=== PATIENT | male | born 1955 | race Caucasian/White ===

== ENCOUNTER 2019-12-13 10:11 | Inpatient (IN) | payer MEDICARE, OTHER ==
[~2019-12-13] VITALS: Ht 188 cm; Wt 114.8 kg
--- OUTSIDE RECORDS SUMMARY | 2019-12-13 10:14 | XMS REPORT ---
Author Author [facility] Organization 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 Allergies, Adverse Reactions, Alerts Allergy Name Allergy Type Status Severity Reaction(s) Onset Date Inacti ve Date Treating Clinician Comments No Known Allergies DA Active U 2013-06-17 00:00:00 Medications This patient has no known medications. Results Test Description Test Time Test Comments Text Results Atomic Results Result Comments GLYCOSYLATED HEMOGLOBIN (HA1C) 2018-12-21 21:09:00 GLYCOSYLATED HEMOGLOBIN (HA1C) (test code = GLYHGB) 11.0 % 4.8-5.9 Any condition that shortens erythocyte survival or decreasesmean erythrocyte age (e.g., recovery from acute blood loss,hemolytic anemai) will falsely lower HGBA1c resultsregardless of the method used. HGBA1c results frompatients with HbSS, HbCC and HbSc must be interpreted withcaution given the pathological processes, including anemia,increased red cell turnover, transfusion requirements, thatadversely impact HGBA1c as a marker of long-term glycemiccontrol. Alternative forms of testing such as fructosamineshould be considered for these patients.Any condition that shortens erythocyte survival or decreasesmean erythrocyte age (e.g., recovery from acute blood loss,hemolytic anemia) will falsely lower HGBA1c resultsregardless of the method used. HGBA1c results from patientswith HbSS, HbCC, and HbSc must be interpreted with cautiongiven the pathological processes, including anemia,increased red cell turnover, transfusion requirements, thatadversely impact HGBA1c as a marker of long-term glycemiccontrol. Alternative forms of testing such as fructosamineshould be considered for these patients.DONE AT: [facility] [address] [facility], [place] [address] GLYCOSYLATED HEMOGLOBIN (HA1C)2018-12-21 21:08:00* Test Item Value Reference Range Comments GLYCOSYLATED HEMOGLOBIN (HA1C) (test code = GLYHGB) 11.0 % 4.8-5.9 Any condition that shortens erythocyte survival or decreasesmean erythrocyte age (e.g., recovery from acute blood loss,hemolytic anemia) will falsely lower HGBA1c resultsregardless of the method used. HGBA1c results from patientswith HbSS, HbCC, and HbSc must be interpreted with cautiongiven the pathological processes, including anemia,increased red cell turnover, transfusion requirements, thatadve rsely impact HGBA1c as a marker of long-term glycemiccontrol. Alternative forms of testing such as fructosamineshould be considered for these patients. COMPREHENSIVE METABOLIC [id number] 18:53:00* Test Item Value Reference Range Comments SODIUM (test code = NA) 132 mmol/L 136-145 POTASSIUM (test code = K) 5.0 mmol/L 3.5-5.1 CHLORIDE (test code = CL) 98.0 mmol/L 98-107 CARBON DIOXIDE (test code = CO2) 26.1 mmol/L 21-32 GLUCOSE (test code = GLU) 431 mg/dL 70-110 VERIFI ED BY REPEAT ANALYSIS.CRITICAL VALUE CALLED TO ZULEIKA READ BACK & CONFIRMED? KAYLEN ALCANTARA.BONNIE 12/21/18 1851RESULTS FAXED TO THE DOCTOR'S OFFICE. BLOOD UREA NITROGEN (test code = BUN) 39 mg/dL 7-18 GLOMERULAR FILTRATION RATE (test code = GFR) 25.1 >60 Unit of measure: mL/min/1.73 [id number] Range:Healthy Adults >90 mL/min/1.73 m2 For Chronic Kidney Disease: Stage II Mild Decrease in GFR 60-90 Stage III Moderate Decrease in GFR 30-59 Stage IV Severe Decrease in GFR 15-29 Stage V Kidney Failure <15 CREATININE (test code = CREAT) 2.58 mg/dL 0.55-1.30 TOTAL PROTEIN (test code = PROT) 7.6 g/dL 6.4-8.2 ALBUMIN (test code = ALB) 3.8 g/dL 3.4-5.0 GLOBULIN (test code = GLOB) 3.8 g/dL 2.2-4.2 ALBUMIN/GLOBULIN RATIO (test code = A/G) 1.0 0.7-2.0 CALCIUM (test code = CA) 8.6 mg/dL 8.2-10.1 BILIRUBIN TOTAL (test code = BILT) 0.31 mg/dL 0.2-1.00 SGOT/AST (test code = AST) 35.0 U/L 15-37 SGPT/ALT (test code = ALT) 53.0 U/L 12-78 Pleas e note new normal range. ALKALINE PHOSPHATASE TOTAL (test code = ALKP) 110 U/L 46 -116 URINALYSIS [id number] 18:46:00* Test Item Value Reference Range Comments UA COLOR (test code = COLU) YELLOW YELLOW UA APPEARANCE (test code = APPU) SL CLOUDY CLEAR UA GLUCOSE DIPSTICK (test code = DGLUU) 3+ NEGATIVE UA BILIRUBIN DIPSTICK (test code = BILU) NEGATIVE NEGATIV E UA KETONE DIPSTICK (test code = KETU) NEGATIVE mg/dL NEGATIVE UA SPECIFIC GRAVITY (test code = SGU) 1.020 1.003-1.03 5 UA BLOOD DIPSTICK (test code = VINAY) TRACE NEGATIVE UA PH DIPSTICK (test code = MADELINE) 6.0 >6.5 UA PROTEIN DIPSTICK (test code = PROU) 3+ mg/dL NEG UA UROBILINIOGEN DIPSTICK (test code = URO) 0.2 mg/dL NORM UA NITRITE DIPSTICK (test code = DINA) NEGATIVE NEG UA LEUKOCYTE ESTERASE DIPSTICK (test code = LEUU) NEGATIVE NEGATIVE UA WBC (test code = WBCU) 20-30 /HPF 0-2 UA RBC (test code = RBCU) 2-5 /HPF 0-2 UA EPITHELIAL CELLS (test code = EPIU) MOD /HPF 0-2 UA BACTERIA (test code = BACU) 2+ /HPF NONE P reviously reported result: 3+ /HPFEdited by: ARIANACD on 12/21/18:[id number] 1846: BACT previously reported as: 3+ H /HPF URINALYSIS [id number] 18:45:00* Test Item Value Reference Range Comments UA COLOR (test code = COLU) YELLOW YELLOW UA APPEARANCE (test code = APPU) SL CLOUDY CLEAR UA GLUCOSE DIPSTICK (test code = DGLUU) 3+ NEGATIVE UA BILIRUBIN DIPSTICK (test code = BILU) NEGATIVE NEGATIV E UA KETONE DIPSTICK (test code = KETU) NEGATIVE mg/dL NEGATIVE UA SPECIFIC GRAVITY (test code = SGU) 1.020 1.003-1.03 5 UA BLOOD DIPSTICK (test code = VINAY) TRACE NEGATIVE UA PH DIPSTICK (test code = MAEDLINE) 6.0 >6.5 UA PROTEIN DIPSTICK (test code = PROU) 3+ mg/dL NEG UA UROBILINIOGEN DIPSTICK (test code = URO) 0.2 mg/dL NORM UA NITRITE DIPSTICK (test code = DINA) NEGATIVE NEG UA LEUKOCYTE ESTERASE DIPSTICK (test code = LEUU) NEGATIVE NEGATIVE UA WBC (test code = WBCU) 20-30 /HPF 0-2 UA RBC (test code = RBCU) 2-5 /HPF 0-2 UA EPITHELIAL CELLS (test code = EPIU) MOD /HPF 0-2 UA BACTERIA (test code = BACU) 3+ /HPF NONE PROTHROMBIN [id number] 18:39:00* Test Item Value Reference Range Comments PROTHROMBIN TIME PATIENT (test code = PTP) 13.1 secs 10.1- 12.5 INTERNATIONAL NORMAL RATIO (test code = INR) 1.16 <2. 0 RECOMMENDED THERAPEUTIC RANGE FOR ORAL ANTICOAGULANTTREATMENT: CONDITION INRProphylaxis of venous thrombosis in 2.0 - 3.0 high-risk medical or surgical patientsTreatment of venous thrombosis 2.0 - 3.0Prevention of embolism 2.0 - 3.0Prevention of recurrent embolism, or 3.0 - 4.5 patients with mechanical prosthetic intravascular valves IS PATIENT ON ANTICOAGULANTS ? NHas Lab been notified if Patient is on Heparin D rip? NOTHROMBOPLASTIN TIME [id number] 18:39:00* Test Item Value Reference Range Comments PTT ACTIVATED (test code = APTT) 29.5 secs 24.9-37.0 IS PATIENT ON ANTICOAGULANTS ? NDas Lab been notified if Patient is on Heparin D rip? NOCBC W/AUTO [id number] 17:50:00* Test Item Value Reference Range Comments WHITE BLOOD CELL (test code = WBC) 10.8 K/mm3 5.7-10.5 RED BLOOD CELL (test code = RBC) 4.29 M/mm3 4.2-5.4 HEMOGLOBIN (test code = HGB) 12.8 g/dL 12-16 HEMATOCRIT (test code = HCT) 38.0 % 37-47 MEAN CELL VOLUME (test code = MCV) 89 fL 80-98 MEAN CELL HGB (test code = MCH) 29.8 pg 27-34 MEAN CELL HGB CONCENTRATION (test code = MCHC) 33.7 g/dL 3 0.8-34.1 RED CELL DISTRIBUTION WIDTH (test code = RDW) 14.2 % 11 -16 PLT (test code = PLT) 246 K/mm3 130-400 MEAN PLATELET VOLUME (test code = MPV) 11.3 fL 8.9-12.1 NEUTROPHIL % (test code = NT%) 73.9 % 45-70 LYMPHOCYTE % (test code = LY%) 13.1 % 20-40 MONOCYTE % (test code = MO%) 8.8 % 3-10 EOSINOPHIL % (test code = EO%) 2.6 % 1-5 BASOPHIL % (test code = BA%) 0.6 % 0.0-1.1 NEUTROPHIL # (test code = NT#) 7.99 K/mm3 2.00-7.50 LYMPHOCYTE # (test code = LY#) 1.42 K/mm3 1.50-4.00 MONOCYTE # (test code = MO#) 0.95 K/mm3 0.2-0.8 EOSINOPHIL # (test code = EO#) 0.28 K/mm3 0.04-0.4 BASOPHIL # (test code = BA#) 0.07 K/mm3 0.02-0.10 MANUAL DIFF REQUIRED (test code = MDIFF) NO MANUAL DIFF NUCLEATED RED BLOOD CELL (test code = NRBC) 0 % 0-0
--- OUTSIDE RECORDS SUMMARY | 2019-12-13 10:14 | XMS REPORT | Summary of Care ---
Author Author [facility] - Health Organization [facility] - Health Address Unknown Phone Unavailable Care Team Providers Care Capsule Inspector Name Role Phone Pcp, Patient Does Not Have A PCP [phone] Reason for Visit * Reason Comments Wound Care Encounter Details Care Team Description Date Type Department Gina Mark DPM [address] [place], [place] [id number] Diabetic ulcer of other part of right fo ot associated with diabetes mellitus due to underlying condition, limited to breakdown of skin (Primary Dx); Charcot's arthropathy associated with type 2 diabetes mellitus; Comprehensive diabetic foot examination, type 2 DM, encounter for; Diabetes mellitus type 2, insulin dependent 08/23/2019 Office Visit [facility], [address], [place] [address] Allergies No Known Allergiesdocumented as of this encounter (statuses as of 08/24/2019) Medications End Date Status Medication Sig Dispensed Refills Start Date Active pregabalin (LYRICA) 150 Take 150 mg 0 mg capsule by mouth 2 (two) times daily. Active Fenofibrate 160 mg tablet Take by 0 mouth daily. Active lisinopril 40 mg tablet Take 40 mg by 0 mouth daily. Active metoprolol succinate XL Take 100 mg 0 100 mg 24 hr tablet by mouth daily. Active allopurinol 300 mg tablet Take 300 mg 0 by mouth daily. Active amLODIPine 10 mg tablet Take 10 mg by 0 mouth daily. Active atorvastatin 40 mg tablet Take 40 mg by 0 mouth at bedtime. Active DULoxetine 30 mg capsule Take 30 mg by 0 mouth daily. Active aspirin (ASPIR-81 ORAL) Take by 0 mouth. Active multivitamin (MULTI-DAY Take by 0 ORAL) mouth. Active acetaminophen (TYLENOL Take by 0 EXTRA STRENGTH ORAL) mouth. Active insulin lispro (HUMALOG inject 20 15 Syringe 1 KWIKPEN INSULIN) 200 Units under 9 unit/mL (3 mL) the skin 3 InPnIndications: Type 2 (three) times diabetes mellitus with daily with hyperglycemia, with meals. long-term current use of insulin Active insulin glargine U-300 inject 65 15 Syringe 1 conc (TOUJEO MAX U-300 Units under 9 SOLOSTAR) 300 unit/mL (3 the skin at mL) InPnIndications: Type bedtime. 2 diabetes mellitus with hyperglycemia, with long-term current use of insulin 09/02/2019 Active clindamycin 300 mg Take 1 30 capsule 0 02 capsuleIndications: capsule by 0 Diabetic ulcer of other mouth 3 part of right foot (three) times associated with diabetes daily for 10 mellitus due to days. underlying condition, limited to breakdown of skin, Charcot's arthropathy associated with type 2 diabetes mellitus, Comprehensive diabetic foot examination, type 2 DM, encounter for, Diabetes mellitus type 2, insulin dependent 08/23/2019 Discontinued (Reorder) clindamycin 300 mg Take 1 42 capsule 0 02 capsuleIndications: capsule by 0 Diabetic ulcer of other mouth 3 part of right foot (three) times associated with diabetes daily for 14 mellitus due to days. underlying condition, limited to breakdown of skin, Charcot's arthropathy associated with type 2 diabetes mellitus, Comprehensive diabetic foot examination, type 2 DM, encounter for, Diabetes mellitus type 2, insulin dependent documented as of this encounter (statuses as of 08/24/2019) Active Problems Problem Noted Date Obesity (BMI 30-39.9) 03/27/2018 Lesion of lower eyelid 02/17/2018 Overview: Added automatically from request for tj boles [id number] Arthritis of knee, degenerative 09/21/2013 HTN (hypertension) 03/23/2012 Diabetes mellitus 03/23/2012 documented as of this encounter (statuses as of 08/24/2019) Social History Date Tobacco Use Types Packs/Day Years Used Never Smoker Smokeless Tobacco: Never Used Drinks/Week oz/Week Comments Alcohol Use Not Asked Sex Assigned at Date Recorded Not on file Industry Job Start Date Occupation Not on file Not on file Not on file Travel End Travel History Travel Start No recent travel history available. documented as of this encounter Last Filed Vital Signs Reading Time Taken Comments Vital Sign 136/77 08/23/2019 11:31 AM CONSULTING PSYCHOLOGIST Blood Pressure 86 08/23/2019 11:16 AM CONSULTING PSYCHOLOGIST Pulse 36.7 C (98 F) 08/23/2019 11:16 AM CONSULTING PSYCHOLOGIST Temperature 21 08/23/2019 11:16 AM CONSULTING PSYCHOLOGIST Respiratory Rate 96% 08/23/2019 11:16 AM CONSULTING PSYCHOLOGIST Oxygen Saturation - - Inhaled Oxygen Concentration 132.2 kg (291 lb 6.4 oz) 08/23/2019 11:16 AM CONSULTING PSYCHOLOGIST Weight 188 cm (6' 2") 08/23/2019 11:16 AM CONSULTING PSYCHOLOGIST Height 37.41 08/23/2019 11:16 AM CONSULTING PSYCHOLOGIST Body Mass Index documented in this encounter Progress Notes * Maria E Mustafa LVN - 08/23/2019 11:00 AM CONSULTING PSYCHOLOGIST Laurie Marroquin is a 63 year old male presents to the clinic per ambulation wit h a cane for wound care evaluation of right foot with . Patient report s 0/10 pain level, fall risk assessed, allergies reviewed, and pharmacy reviewed . Wound#1 Wound etiology: diabetic or neurotrophic Anatomic location: Foot right Age of wound: chronic > 1 month Photos Taken Yes Vitals Taken Yes Reviewed allergies Yes Reviewed medications Yes Wound Description: Location: right plantar Size: 3.5 cm length, 3.6 cm width, 0.1 cm depth Total Area: 12.6 cm/sq Shape: oval Type of wound: partial thickness wound Exudate: amount moderate, color serosanguinous, consistency watery Pitting Edema : no Sepsis: none Surrounding skin: erythematous and intact Maceration: not present Edges: not attached Epithelialization: not present Tissue Bed: granulation tissue present 100% Necrotic Tissue: not present Tenderness or pain: no pain Dressing upon arrival:lcal dressing Dressing removed and Wound washed with 0.25% Dakins Solution Devitalized Tissue Removed yes by . Wound #2 Wound etiology: diabetic or neurotrophic Anatomic location: Foot right Age of wound: chronic > 1 month Photos Taken Yes Vitals Taken Yes Reviewed allergies Yes Reviewed medications Yes Wound Description: Location: right lateral foot Size: 2.1 cm length, 2 cm width, 1.6 cm depth Total Area: 4.2 cm/sq Shape: oval Type of wound: partial thickness wound Exudate: amount moderate, color serosanguinous, consistency watery Pitting Edema : no Sepsis: odor detected Surrounding skin: erythematous and intact Maceration: present, location: lana-wound Edges: not attached Epithelialization: not present Tissue Bed: granulation tissue not present Necrotic Tissue: present. Type: slough yellow . Percentage of wound: 50% Tenderness or pain: no pain Dressing upon arrival:local dressing Dressing removed and Wound washed with 0.25% Dakins Solution Devitalized Tissue Removed No 0.25% Dakins wet to dry applied to wound bed covered with dry gauze, wrapped wit h Kerlix, and secured with 4" heron. Patient tolerated wound care well, he denies any further question or concerns at this time. [facility] Orders written and signed by . Patient will follow up as noted bellow: Future Appointments Date Time Provider Department Center 08/25/2019 11:00 AM Anh Molina [facility] [place] 09/06/2019 1:40 PM Gina Mark DPM [facility] 09/08/2019 2:[address] [facility]24/2019 2:00 PM [facility]ehuda Peres [facility] ULTING PSYCHOLOGIST * Gina Mark DPM - 08/23/2019 11:00 AM CONSULTING PSYCHOLOGIST Chief Complaint: Diabetic foot ulcer Referring Provider: José Miguel Arreola History of Present Illness: Laurie Marroquin, is a 63 year old, male, who presents to clinic with a partial 5th ray amputation of his right foot about 2 years ago. Pt notes that he also h as the same amputation on his left foot. He has a home health nurse who adminis ters wound care. Pt relates no other pedal issues this visit. Pt seen today for follow-up of with a right foot ulceration. The patient says that a bump on his foot "blew" on Friday. He says he is unable to dress his wounds himself and is requesting home health. He denies any pain and relates no other pedal concerns. Interval History 08/23/19: Pt seen today for follow-up of two right foot ulcera tions. He states that he has acquired home health and needs his orders updated. Patient relates no other pedal ulcerations. Past Medical History: Past Medical History: Diagnosis Date Cataract Chronic kidney disease DM II (diabetes mellitus, type II), controlled Hyperlipidemia Hypertension Social History: Social History Socioeconomic History Marital status: Single Spouse name: Not on file Number of children: Not on file Years of education: Not on file Highest education level: Not on file Occupational History Not on file Social Needs Financial resource strain: Not on file Food insecurity: Worry: Not on file Inability: Not on file Transportation needs: Medical: Not on file Non-medical: Not on file Tobacco Use Smoking status: Never Smoker Smokeless tobacco: Never Used Substance and Sexual Activity Alcohol use: Not on file Drug use: Not on file Sexual activity: Not on file Lifestyle Physical activity: Days per week: Not on file Minutes per session: Not on file Stress: Not on file Relationships Social connections: Talks on phone: Not on file Gets together: Not on file Attends denominational service: Not on file Active member of club or organization: Not on file Attends meetings of clubs or organizations: Not on file Relationship status: Not on file Intimate partner violence: Fear of current or ex partner: Not on file Emotionally abused: Not on file Physically abused: Not on file Forced sexual activity: Not on file Other Topics Concern Not on file Social History Narrative Not on file Family History: Family History Problem Relation Age of Onset Diabetes Mother Diabetes Father Current Medications: Patient's Medications START taking these medications No medications on file CONTINUE taking these medications which have NOT CHANGED COLLAGENASE (SANTYL) 250 UNIT/GRAM OINTMENT Apply to affected area(s) daily . INSULIN ASPART RAPID (NOVOLOG) 100 UNIT/ML INJECTION inject 33 Units under t he skin 3 (three) times daily before meals. INSULIN DETEMIR (LEVEMIR) 100 UNIT/ML INJECTION inject 50 Units under the sk in 2 (two) times daily. INSULIN LISPRO, HUMAN, (HUMALOG) 100 UNIT/ML INJECTION Administer 33 units t hree times a day before meals. METFORMIN (GLUCOPHAGE) 500 MG TABLET Take 1 Tab by mouth 2 (two) times daily with meals. SODIUM HYPOCHLORITE 0.25% (DAKIN'S SOLUTION) SOLUTION Apply to area(s) tonya y. TRIAMCINOLONE ACETONIDE 0.1 % OINTMENT Apply to area(s) 2 (two) times daily . START taking Modified Medications as Prescribed No medications on file STOP taking these medications No medications on file Allergies: Patient has no known allergies. Review of Systems: Constitutional: no fever, no chills Cardiovascular: no chest pain Respiratory: no cough, no shortness of breath Gastrointestinal: no nausea, no vomiting, no diarrhea Integumentary: no itching, no rashes, open skin lesion right LE Hematologic/lymphatic: no bruising or bleeding tendencies Physical Exam: BP 136/77 (BP Location: Right arm, Patient Position: Sitting, BP CUFF SIZE: Adul t Large) | Pulse 86 | Temp 36.7 C (98 F) (Oral) | Resp 21 | Ht 6' 2" (1. 88 m) | Wt 291 lb 6.4 oz (132.2 kg) | SpO2 96% | BMI 37.41 kg/m Body mass index is 37.41 kg/m. General: alert, awake, oriented x 3, appearing age appropriate, no apparent dist ress. Skin: skin color, texture, and turgor are normal. Specific Physical Exam/Lower Extremity Pedal Exam: DERM: Pedal hair growth present: no Soft tissue envelope: normal Nails are thickened, elongated, discolored, with subungual debris:yes - 1-5 of l eft foot, 1-4 of right foot WOUND #1: Location: Right partial 5th ray amputation site Measurements: 08/23/19: Pre-debridement: 2.1cm L x 2.1cm W x 0.1cm D- pink granulat ion tissue with well demarcated wound margins Post-debridement: 2.1cm L x 2.1cm W x 0.1cm D- bleeding, granular 08/16/19: Pre-debridement: 1.8cm L x 2.0cm W x 0.1cm D- undermines superiorly a nd laterally, hyperkeratotic periwound tissue with biofilm covering granular wou nd bed Post-debridement: 1.8cm L x 2.0cm W x 0.1cm D-macerated periwound tissu e in areas of previous undermining 08/02/19: Pre-debridement: 1.5cm L x 1.5cm W x 0.1cm D- well demarcated, granul ar Post-debridement: 1.5cm L x 1.5cm W x 0.1cm D- bleeding, granular 07/22/19: Pre-debridement:1.5cm L x 1.0cm W x 0.2cm D - pink granular wound bed, macerated periwound tissue Post-debridement: 1.6cm L x 1.5cm W x 0.1cm D - bleeding but pink wound bed, we ll demarcated wound border WOUND #2: Location: Dorsal Lateral Styloid Process Measurements: 08/23/19: Pre-debridement: 1.5cm L x 1.5cm W x 1.0cm D- 95% fibrotic Post-debridement: 1.5cm L x 1.5cm W x 1.0cm D-joint capsule exposed, bleed ing 08/16/19: Pre-debridement: 2.3cm L x 2.0cm W x 1.6cm D-100% fibrotic tissue and deep probe to bone. Slough and devitalized tissue noted Post-debridemeent: 2.3cm L x 2.0cm W x 1.6cm D- bleeding, fibrotic VASC: Dorsalis pedis and posterior tibial pulses are 2/4, Capillary refill: <3 seconds at all tested digits Temperature: normal Edema: absent Varicosities: not noted NEURO: Epicritic sensation: diminished MSK: Motor function grossly intact Pedal Deformities: not noted Pedal Amputations: partial 5th ray amputation, bilaterally EXAM: XR FOOT 3+ VW BILATERAL HISTORY: chronic right foot diabetic ulcer COMPARISON: 09/08/2017 FINDINGS: Imaging of the bilateral feet was obtained. Right foot: Prior amputation of the fifth ray at the level of the metatarsal base is seen. There is increased sclerosis about the bony amputation site. Focal soft tissue prominence overlies the lateral aspect of the foot at the level of the fifth metatarsal base. Disorganization, cystic change and fragmentation of the midfoot is seen. There is midfoot collapse. Calcaneal enthesophytes are present. Osteopenia, mild soft tissue swelling and vascular calcifications are present. Dorsal talonavicular osteophytosis is seen. Chronic erosion of the fourth metatarsal head is unchanged. Left foot: Partial amputations of the fourth and fifth metatarsals are seen with intact bony amputation margins. Diffuse soft tissue swelling is seen with osteopenia and diabetic type vascular calcifications. No acute fracture or dislocation is identified. There is diffuse narrowing of the tarsometatarsal joints with osteophytosis and fragmentation. Midfoot collapse is suggested. Calcaneal enthesophytes are seen. IMPRESSION No acute bony abnormality. Findings compatible with bilateral Charcot arthropathy, right greater than left. Focal soft tissue prominence in the right lateral foot could represent a soft tissue mass or fluid collection. Further evaluation with MRI with and without IV contrast may be helpful. Diagnosis: ICD-10-CM ICD-9-CM 1. Diabetic ulcer of other part of right foot associated with diabetes mellitus due to underlying condition, limited to breakdown of skin E08.621 249.80 L97.511 707.15 2. Charcot's arthropathy associated with type 2 diabetes mellitus E11.610 250.60 713.5 3. Comprehensive diabetic foot examination, type 2 DM, encounter for E11.9 250.0 0 4. Diabetes mellitus type 2, insulin dependent E11.9 250.00 Z79.4 V58.67 Plan: Patient evaluated and examined Condition and treatment plan discussed in detail with patient PROCEDURE NOTE Type of Debridement: Excisional Level of Debridement: Wound debrided down to and including subcutaneous tissue l evel, muscle Tissue type removed: Biofilm, slough, devitalized tissue Instrument: Scapel/Blade:Yes Curette:Yes Forceps: No Scissors: No Both wounds dressed with Dakin's Wet to Dry Home health orders updated Continue Rx: Clindamycin 300 mg TID x 10 days Monitor skin closely for any signs of skin breakdown Pt to report to ED for any local or systemic signs of infection, discussed in detail with him today RTC in 2 weeks Siennaibe's Attestation Rodríguez Rivera , am scribing for, and in the presence of, Gina nielsen DPM who performed the services described here-in. Rodríguez Rodriguez, August 23, 2019, 11:30 AM Physician's Attestation Gina Rivera DPM, personally performed and/or ordered the services describ ed in this documentation made by the Scribe in my presence, and it is both accur ate and complete. All medical record entries made by the Siennaibrocio were at my dire ction and personally dictated by me. I have reviewed the chart and agree that t he record accurately reflects my personal performance of the history, physical e xam, assessment and plan. Gina Mark DPM Aeronautical Research Engineer Podiatric Medicine and Surgery Department of Orthopaedic Surgery & Rehabilitation 08/23/19 3:56 PM ULTING PSYCHOLOGIST * Elizabeth Leigh MA - 08/23/2019 11:00 AM CONSULTING PSYCHOLOGIST Laurie Marroquin is a 63 year old male is here for wound care. Wound measurements Right plantar 3.5 cm length, 3.6 cm width, 0.1 cm depth Wound measurements Right lateral dorsal foot 2.1 cm length, 2.0 cm width, 1.6 cm depth Patient arrived with local dressing Wound cleansed with Dakins solutions Numb at 11:29am ULTING PSYCHOLOGIST documented in this encounter Plan of Treatment Care Team Description Date Type Specialty Anh Molina MD [address] [place] [id number] 08/25/2019 Office Visit Endocrinology Diabe aj & Metabolism Gina Mark DPM [address] [place] [address] 09/06/2019 Office Visit Surgery Darrius, Denise, RD [address] [place], [place] [address] 09/08/2019 Library Page Visit Endocrinology Diabe aj [facility] Metabolism Yehuda Peres MD [address] [place] [address]. [place] [address] 12/24/2019 Office Visit Ophthalmology Health Maintenance Due Date Last Done Comments HEPATITIS C (HCV) SCREEN 1955 CREATININE (SERUM) 12/04/1963 LDL-C 12/04/1963 URINE MICROALBUMIN 12/04/1963 DTaP,Tdap,and Td Vaccines 1964 (1 - Tdap) COLONOSCOPY 12/04/2003 Zoster Recombinant 12/04/2003 Vaccine (SHINGRIX) (1 of 2) HgA1C 02/23/2016 08/25/2015 FOOT EXAM 08/25/2016 08/25/2015 Medicare Wellness Visit 2018 PNEUMOCOCCAL VACCINES 65+ 2018 (1 of 2 - PCV13) INFLUENZA VACCINE (#1) 2019 EYE EXAM 06/25/2020 06/25/2019, 019, 02/10/2018 documented as of this encounter Results Not on filedocumented in this encounter Visit Diagnoses Diagnosis Diabetic ulcer of other part of right f oot associated with diabetes mellitus due to underlying condition, limited to breakdown of skin - Primary Charcot's arthropathy associated with t ype 2 diabetes mellitus Type II or unspecified type diabetes me llitus with neurological manifestations, not stated as uncontrolled Comprehensive diabetic foot examination , type 2 DM, encounter for Diabetes mellitus type 2, insulin depen dent Type II or unspecified type diabetes me llitus without mention of complication, not stated as uncontrolled documented in this encounter Additional Health Concerns Resolved Time Infection Noted Time Contact- MRSA 08/22/2019 6:33 PM CONSULTING PSYCHOLOGIST documented as of this encounter Insurance Type Payer Benefit Subscriber ID Effective Phone Address Plan / Dates Group Medicare MEDICARE MEDICARE xxxxxxxxxxx 2008- [phone] [address] [employer] [place] [employer] Present [id number] [place] [id number] documented as of this encounter
--- OUTSIDE RECORDS SUMMARY | 2019-12-13 10:14 | XMS REPORT | Summary of Care ---
Author Author [facility] - Health Organization [facility] - Health Address Unknown Phone Unavailable Care Team Providers Care Sales Support Assistant Name Role Phone Pcp, Patient Does Not Have A PCP Encounter Details Care Team Description Date Type Department Doctor Unassigned, [place] [address] [place] [address] 09/13/2019 Orders Only [facility] [address] [place] [address] Allergies No Known Allergiesdocumented as of this encounter (statuses as of 09/22/2019) Medications End Date Status Medication Sig Dispensed [...] hyperglycemia, with long-term current use of insulin Active clindamycin 300 mg 2 capsules 0 capsule Active furosemide 40 mg tablet TK 1 T PO 0 BID 0 Active hydrALAZINE 25 mg tablet TK 1 T PO TID 0 07/13 WF 9 Active mupirocin 2 % ointment ADONIS EXT AA 0 01 TID FOR 10 9 DAYS Active BD INSULIN PEN NEEDLE UF TEST QID 0 08/18 29 gauge x 1/2" Ndle 0 Active naproxen sodium (ALEVE Take by 0 ORAL) mouth. Active acetaminophen-codeine Take 1 tablet 30 tablet 0 (TYLENOL-CODEINE #3) by mouth 0 300-30 mg every 4 tabletIndications: Type 2 (four) hours diabetes mellitus with as needed for both eyes affected by Pain (scale mild nonproliferative 1-3). retinopathy without macular edema, with long-term current use of insulin, Charcot's joint of right foot, Essential hypertension, Lesion of lower eyelid, Obesity (BMI 30-39.9) 09/23/2019 Active clindamycin 300 mg Take 1 20 capsule 0 02 capsuleIndications: capsule by 0 Diabetic ulcer of other mouth 2 (two) part of right foot times daily associated with diabetes for 10 days. mellitus due to underlying condition, limited to breakdown of skin, Charcot's joint of right foot, 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inopathy without macular edema, with long-term current use of insulin documented as of this encounter (statuses as of 09/22/2019) Active Problems Problem Noted Date 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, with long-term current use of insulin Overview: Added automatically from request for tj boles [id number] Charcot's joint of right foot 09/07/2019 Overview: Added automatically from request for tj pachecoery [id number] Obesity (BMI 30-39.9) 03/27/2018 Lesion of lower eyelid 02/17/2018 Overview: Added automatically from request for spencer elvi [id number] Arthritis of knee, degenerative 09/21/2013 HTN (hypertension) 03/23/2012 Diabetes mellitus 03/23/2012 documented as of this encounter (statuses as of 09/22/2019) Social History Date Tobacco Use Types Packs/Day Years Used Former Smoker Smokeless Tobacco: Never Used Drinks/Week oz/Week Comments Alcohol Use Not Asked Sex Assigned at Date Recorded Not on file Industry Job Start Date Occupation Not on file Not on file Not on file Travel End Travel History Travel Start No recent travel history available. documented as of this encounter Last Filed Vital Signs Not on filedocumented in this encounter Plan of Treatment Care Team Description Date Type Specialty Gina Mark DPM [address] [place], [place] [address] 09/27/2019 Office Visit Surgery Denise Rizo, RD [address] [place], [place] [address] 12/23/2019 Saw Straightener Visit Endocrinology [facility] [address] [place] [address]. [place] [address] 12/24/2019 Office Visit Ophthalmology Health Maintenance Due Date Last Done Comments HEPATITIS C (HCV) SCREEN 1955 CREATININE (SERUM) 12/04/1963 LDL-C 12/04/1963 URINE MICROALBUMIN 12/04/1963 DTaP,Tdap,and Td Vaccines 1964 (1 - Tdap) COLONOSCOPY 12/04/2003 Zoster Recombinant 12/04/2003 Vaccine (SHINGRIX) (1 of 2) LUNG CANCER SCREEN: 2008 Recommended for age 55-80 with 30 + pack year history HgA1C 02/23/2016 08/25/2015 FOOT EXAM 08/25/2016 08/25/2015 Medicare Wellness Visit 2018 PNEUMOCOCCAL VACCINES 65+ 2018 (1 of 2 - PCV13) INFLUENZA VACCINE (#1) 2019 EYE EXAM 06/25/2020 06/25/2019, 019, 02/10/2018 documented as of this encounter Procedures Comments Procedure Name Priority Date/Time Associated Diag nosis HOME HEALTH - OTHER Routine 09/13/2019 12:01 AM PHOTOGRAPHER documented in this encounter Results Not on filedocumented in this encounter Additional Health Concerns Resolved Time Infection Noted Time Contact- MRSA 08/22/2019 6:33 PM PHOTOGRAPHER documented as of this encounter Insurance Type Payer Benefit Subscriber ID Effective Phone Address Plan / Dates Group Medicare MEDICARE MEDICARE xxxxxxxxxxx 2008- [phone] [address] [employer] B Present [id number] [place] [id number] documented as of this encounter
--- OUTSIDE RECORDS SUMMARY | 2019-12-13 10:15 | XMS REPORT | Summary of Care ---
Author Author [facility] - Health Organization [facility] - Health Address Unknown Phone Unavailable Care Team Providers Care Pain Management Specialist Name Role Phone Pcp, Patient Does Not Have A PCP [phone] Reason for Visit * Reason Comments Diabetic Foot Ulcer Encounter Details Care Team Description Date Type Department Gina Mark, MONISHA [address] [place] [address] Diabetic ulcer of other part of right fo ot associated with diabetes mellitus due to underlying condition, limited to breakdown of skin (Primary Dx); Charcot's joint of right foot; 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inopathy without macular edema, with long-term current use of insulin 09/27/2019 Office Visit [facility], [address], [facility] [place] [address] Allergies No Known Allergiesdocumented as of this encounter (statuses as of 09/27/2019) Medications End Date Status Medication Sig Dispensed [...] Lesion of lower eyelid, Obesity (BMI 30-39.9) documented as of this encounter (statuses as of 09/27/2019) Active Problems Problem Noted Date 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, with long-term current use of insulin Overview: [id number] Charcot's joint of right foot 09/07/2019 Overview: [facility] [id number] Obesity (BMI 30-39.9) 03/27/2018 Lesion of lower eyelid 02/17/2018 Overview: Added automatically from request for tj boles [id number] Arthritis of knee, degenerative 09/21/2013 HTN (hypertension) 03/23/2012 Diabetes mellitus 03/23/2012 documented as of this encounter (statuses as of 09/27/2019) Social History Date Tobacco Use Types Packs/Day [...] Signs Reading Time Taken Comments Vital Sign 129/75 09/27/2019 9:36 AM ORTHODONTIC BAND MAKER Blood Pressure 82 09/27/2019 9:36 AM ORTHODONTIC BAND MAKER Pulse 36.6 C (97.8 F) 09/27/2019 9:36 AM ORTHODONTIC BAND MAKER Temperature 20 09/27/2019 9:36 AM ORTHODONTIC BAND MAKER Respiratory Rate 95% 09/27/2019 9:36 AM ORTHODONTIC BAND MAKER Oxygen Saturation - - Inhaled Oxygen Concentration 130.2 kg (287 lb) 09/27/2019 9:36 AM ORTHODONTIC BAND MAKER Weight - - Height 36.85 09/20/2019 9:24 AM ORTHODONTIC BAND MAKER Body Mass Index documented in this encounter Progress Notes * Maria E Mustafa, ON CALL PHARMACY TECHNICIAN - 09/27/2019 9:20 AM ORTHODONTIC BAND MAKER Laurie Marroquin is a 63 year old male presents to the clinic per ambulation wit h a cane for wound care evaluation of right foot with . Patient report s 5/10 pain level, fall risk assessed, allergies reviewed, and pharmacy reviewed . Wound#1 Wound etiology: diabetic or neurotrophic Anatomic location: Foot right Age of wound: chronic > 1 month Photos Taken Yes Vitals Taken Yes Reviewed allergies Yes Reviewed medications Yes Wound Description: Location: right plantar Size: 2.5 cm length, 2.8 cm width, 1 cm depth Total Area: 7 cm/sq Shape: oval Type of wound: partial [...] Wound Description: Location: right lateral foot Size: patient had surgery, this is now a suture line surgical wound Moist betadine gauze was applied to surgical wound bed on right lateral foot and Melissa Ag 4.34 sq/in (cut to size) applied to right plantar,foot wrapped with K erlix, and secured with 4" heron bandage. [facility] wound care orders were s igned by and will be sent to [facility] tomorrow. Patient tolerated wound care well, he denies any further question or concerns at this ti ok. Patient will follow up as noted below. Future Appointments Date Time Provider Department Center 10/04/2019 10:40 AM Gina Mark DPM DICSUR SURGERY 12/23/2019 1:[address] [facility] Multi 12/24/2019 2:00 PM Yehuda Peres MD FRIOPE Fri [facility] ODONTIC BAND MAKER * Gina Mark DPM - 09/27/2019 9:20 AM ORTHODONTIC BAND MAKER Chief Complaint: Diabetic foot ulcer Referring Provider: José Miguel Arreola History of Present Illness: Laurie Marroquin, is a 63 year old, male, seen today for follow-up 2 weeks, 4 da y s/p bone resection of residual 5th metatarsal shaft for osteomyelitis, right f oot. The patient denies excessive weightbearing and relates no new pedal concern s this visit. Past Medical History: Past Medical History: Diagnosis [...] Not on file Tobacco Use Smoking status: Former Smoker Smokeless tobacco: Never Used Substance and Sexual Activity Alcohol use: Not on file Drug use: Not on file Sexual activity: Not on file Lifestyle Physical activity: Days per week: Not on file Minutes per session: Not on file Stress: Not on file Relationships Social connections: Talks on phone: Not on file Gets together: Not on file Attends druze service: Not on file Active member of [...] no bruising or bleeding tendencies Physical Exam: There were no vitals taken for this visit. There is no height or weight on file to calculate BMI. General: alert, awake, oriented x 3, appearing age appropriate, no apparent dist ress. Skin: skin color, texture, and turgor are normal. Specific Physical Exam/Lower Extremity Pedal Exam: DERM: Pedal hair growth present: no Soft tissue envelope: normal Nails are thickened, elongated, discolored, with subungual debris:yes - 1-5 of l eft foot, 1-4 of right foot Skin incision well co-apted with all sutures intact, no local signs of infection along lateral aspect of foot WOUND #1: Location: Right partial 5th ray amputation site- plantar wound Measurements: 09/27/19: Pre-debridement: 2.5cm L x 2.6cm W x 1.0cm D- granular with biofilm c overing Post-debridement: 2.5cm L x 2.6cm W x 1.0cm D-bleeding, granular 09/20/19: Pre-debridement: 2.3cm L x 2.8cm W x 0.6cm D- granular, with biofilm covering Post-debridement: 2.3cm L x 2.8cm W x 0.6cm D- bleeding, granular VASC: Dorsalis pedis and posterior tibial pulses [...] skin E08.621 249.80 L97.511 707.15 2. Charcot's joint of right foot M14.671 094.0 713.5 3. 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 inopathy without macular edema, with long-term current use of insulin E11.3293 2 50.50 Z79.4 362.04 V58.67 Pt is 2 week, 4 days s/p right foot resection of residual 5th met head - DOS - doing very well Plan: Patient evaluated and examined Condition and treatment plan discussed in detail with patient PROCEDURE NOTE: Type of Debridement: Excisional Level of Debridement: Wound debrided down to and including subcutaneous tissue l evel and muscle Tissue type removed: Biofilm Instrument: Scapel/Blade: No Curette:Yes Forceps: No Scissors: No Betadine moist to dry placed to surgical site, then plantar wound dressed wit h Melissa. Right foot dressed in dry, compressive bandage Home health orders updated Continue Rx: Clindamycin 300 mg BID x 10 days Recommend elevating feet and wearing compression hose to alleviate swelling Pt to report to ED for any local or systemic signs of infection, discussed in detail with him today RTC in 1 week Scribe's Attestation Rodríguez Rivera , am scribing for, and in the presence of, Gina nielsen DPM who performed the services described here-in. Rodríguez Rodriguez, September 27, 2019, 9:01 AM Physician's Attestation Gina Rivera DPM, personally performed and/or ordered the services describ ed in this documentation made by the Scribe in my presence, and it is both accur ate and complete. All medical record entries made by the Scribe were at my dire ction and personally dictated by me. I have reviewed the chart and agree that t he record accurately reflects my personal performance of the history, physical e xam, assessment and plan. Gina Mark DPM Telescope Operator Podiatric Medicine and Surgery Department of Orthopaedic Surgery & Rehabilitation 09/27/19 9:18 AM ODONTIC BAND MAKER documented in this encounter Plan of Treatment Care Team Description Date Type Specialty Gina Mark DPM [address] [place], [place] [address] 10/04/2019 Office Visit Surgery Denise Rizo, RD [address] [place], [place] [address] 12/23/2019 [place] Head Former Visit Endocrinology Diabe aj & [facility] [address] [place] [address]. [place] [address] 12/24/2019 Office Visit Ophthalmology Health [...] to breakdown of skin - Primary Charcot's joint of right foot 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inopathy without macular edema, with long-term current u se of insulin documented in this encounter Additional Health Concerns Resolved Time Infection Noted Time Contact- MRSA 08/22/2019 6:33 PM ORTHODONTIC BAND MAKER documented as of this encounter Insurance Type Payer Benefit Subscriber ID Effective Phone Address Plan / Dates Group Medicare MEDICARE MEDICARE xxxxxxxxxxx 2008- [phone] [address] PART A & B Present [id number] [place] [id number] documented as of this encounter
--- OUTSIDE RECORDS SUMMARY | 2019-12-13 10:15 | XMS REPORT | Summary of Care ---
Author Author [facility] - Health Organization [facility] - Health Address Unknown Phone Unavailable Care Team Providers Care Ct Technologist Name Role Phone Pcp, Patient Does Not Have A PCP [phone] Reason for Visit * Reason Comments Wound Care Encounter Details Care Team Description Date Type Department Gina Mark, MONISHA [address] [place], [place] [id number] Diabetic ulcer of other part of right fo ot associated with diabetes mellitus due to underlying condition, limited to breakdown of skin (Primary Dx); Charcot's joint of right foot; 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inopathy without macular edema, with long-term current use of insulin 09/20/2019 Office Visit [facility], [address], [place] [address] Allergies No Known Allergiesdocumented as of this encounter (statuses as of 09/21/2019) Medications End Date Status Medication Sig Dispensed [...] as of this encounter (statuses as of 09/21/2019) Active Problems Problem Noted Date 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, with long-term current use of insulin Overview: Added automatically from request for tj boles [id number] Charcot's joint of right foot 09/07/2019 Overview: Added automatically from request for tj boles [id number] Obesity (BMI 30-39.9) 03/27/2018 Lesion of lower eyelid 02/17/2018 Overview: Added automatically from request for tj boles [id number] Arthritis of knee, degenerative 09/21/2013 HTN (hypertension) 03/23/2012 Diabetes mellitus 03/23/2012 documented as of this encounter (statuses as of 09/21/2019) Social History Date Tobacco Use Types Packs/Day [...] Signs Reading Time Taken Comments Vital Sign 151/74 09/20/2019 9:27 AM MOTOR VEHICLE DISPATCHER Blood Pressure 72 09/20/2019 9:24 AM MOTOR VEHICLE DISPATCHER Pulse 36.6 C (97.8 F) 09/20/2019 9:24 AM MOTOR VEHICLE DISPATCHER Temperature 18 09/20/2019 9:24 AM MOTOR VEHICLE DISPATCHER Respiratory Rate 97% 09/20/2019 9:24 AM MOTOR VEHICLE DISPATCHER Oxygen Saturation - - Inhaled Oxygen Concentration 129.5 kg (285 lb 6.4 oz) 09/20/2019 9:24 AM MOTOR VEHICLE DISPATCHER Weight 188 cm (6' 2") 09/20/2019 9:24 AM MOTOR VEHICLE DISPATCHER Height 36.64 09/20/2019 9:24 AM MOTOR VEHICLE DISPATCHER Body Mass Index documented in this encounter Progress Notes * Kirti Miller RN - 09/20/2019 9:20 AM MOTOR VEHICLE DISPATCHER Laurie Marroquin is a 63 year old [...] Location: right plantar Size: 2.5 cm length, 2.4 cm width, 0.6 cm depth Total Area: 6.24 cm/sq Shape: oval Type of wound: partial [...] wound bed on right lateral foot and Dakins wet to dry applied to right plantar,foot wrapped with Kerlix, and secured with 4' heron bandage. [facility] wound care orders were signed by and will be sent to [facility] tomorrow. Patient tolerated wound care well, he denies any further question or concerns at this time. Patient will follow up as noted below. Future Appointments Date Time Provider Department Center 09/27/2019 9:20 AM Gina Mark DPM DICSUR SURGERY 12/23/2019 1:[address] [facility] 12/24/2019 2:00 PM Yehuda Peres MD FRIOPE Fri [facility] R VEHICLE DISPATCHER * Gina Mark DPM - 09/20/2019 9:20 AM MOTOR VEHICLE DISPATCHER Chief Complaint: Diabetic foot ulcer Referring Provider: José Miguel Arreola History of Present Illness: Laurie Marroquin, is a 63 year old, male, who presents to clinic with a partial 5th ray amputation of his right foot about 2 years ago. Pt notes that he also h as the same amputation on his left foot. He has a home health nurse who adminis [facility] wound care. Pt relates no other pedal [...] updated. Patient relates no other pedal ulcerations. Interval History 09/06/19: Pt seen today for follow-up of two right foot ulcera tions. The patient had his radiographs taken. He notes his brother also had maxx re Charcot arthroplasty, but otherwise relates no new pedal concerns this visit. Interval History 09/13/19: Pt seen today for follow-up 4 days s/p bone resectio n of residual 5th metatarsal shaft for osteomyelitis, right foot. Patient says t hat he has only taken 3 of his pain pills and has not been in pain since. He rel ates no nausea, vomiting, fever, or chills. He reports compliance with his cours e of antibiotics and relates no new pedal concerns. Interval History 09/20/19: Pt seen today for follow-up 1 week, 4 days s/p bone resection of residual 5th metatarsal shaft for osteomyelitis, right foot. Patien t would like the nails of his right foot trimmed. He relates no new pedal concer ns, nor any nausea, vomiting, fever, or chills. Past Medical History: Past Medical History: Diagnosis [...] file Gets together: Not on file Attends confucianist service: Not on file Active member of [...] bruising or bleeding tendencies Physical Exam: BP (!) 151/74 (BP Location: Right arm, Patient Position: Sitting, BP CUFF SIZE: Adult Large) | Pulse 72 | Temp 36.6 C (97.8 F) (Oral) | Resp 18 | Ht 6' 2" (1.88 m) | Wt 285 lb 6.4 oz (129.5 kg) | SpO2 97% | BMI 36.64 kg/m Body mass index is 36.64 kg/m. General: alert, awake, oriented x 3, [...] 5th ray amputation site- plantar wound Measurements: 09/20/19: Pre-debridement: 2.3cm L x 2.8cm W x 0.6cm D- granular, with biofilm covering Post-debridement: 2.3cm L x 2.8cm W x 0.6cm D- bleeding, granular 09/13/19: 2.1cm L x 2.5cm W x 0.9cm D- granular, well-demarcated, no local infe ction noted 09/06/19: Pre-debridement: 2.2cm L x 2.4cm W x 2.0cm D- tracking laterally and inferiorly Post-debridement: 2.2cm L x 2.4cm w x 2.0cm D- bleeding, granular 08/23/19: Pre-debridement: 2.1cm L x 2.1cm W [...] #2: Location: Dorsal Lateral Styloid Process Measurements: 09/20/19: Skin incision well co-apted with all sutures intact, no local signs o f infection 09/13/19: Skin incision well co-apted with all sutures intact, no local signs o f infection VASC: Dorsalis pedis and posterior tibial pulses [...] 2 50.50 Z79.4 362.04 V58.67 Pt is 1 week, 4 days s/p right foot resection of residual 5th met head - DOS - doing very well Plan: Patient evaluated and examined Condition and treatment plan discussed in detail with patient PROCEDURE NOTE: Nails 1-4 of right foot debrided in length and thickness PROCEDURE NOTE: Type of Debridement: Excisional Level of Debridement: Wound debrided down to and including subcutaneous tissue l evel and muscle Tissue type removed: Biofilm Instrument: Scapel/Blade:Yes Curette:Yes Forceps: No Scissors: No Betadine moist to dry placed to surgical site, then plantar wound dressed wit h Dakin's wet to dry. Right foot dressed in dry, compressive bandage Home health orders updated Continue Rx: Clindamycin 300 mg BID x 10 days Recommend elevating feet and wearing compression hose to alleviate swelling Pt to report to ED for any local or systemic signs of infection, discussed in detail with him today RTC in 1 week Siennaibroico's Attestation Rodríguez Rivera , am scribing for, and in the presence of, Gina nielsen DPM who performed the services described here-in. Rodríguez Rodriguez, September 20, 2019, 9:50 AM Physician's Attestation Gina Rivera DPM, personally performed and/or ordered the services describ ed in this documentation made by the Siennaibrocio in my presence, and it is both accur ate and complete. All medical record entries made by the Lisette were at my dire ction and personally dictated by me. I have reviewed the chart and agree that t he record accurately reflects my personal performance of the history, physical e xam, assessment and plan. Gina Mark DPM Mastic Floor Layer Podiatric Medicine and Surgery Department of Orthopaedic Surgery & Rehabilitation 09/20/19 3:23 PM R VEHICLE DISPATCHER * Elizabeth Leigh MA - 09/20/2019 9:20 AM MOTOR VEHICLE DISPATCHER Laurie Marroquin is a 63 year old male is here for wound care. Wound measurements Right lateral plantar 2.5 cm length, 2.4 cm width, 0.1 cm depth Patient arrived with local dressing Wound cleansed with Dakins solutions R VEHICLE DISPATCHER documented in this encounter Plan of Treatment Care Team Description Date Type Specialty Gina Mark DPM [address] [place], [place] [address] 09/27/2019 Office Visit Surgery Darrius, Denise, RD [address] [place], [place] [address] 12/23/2019 File Keeper Visit Endocrinology [facility]abe aj [facility] [address] [place] [address]. [place] [address] 12/24/2019 Office Visit Ophthalmology Health [...] Noted Time Contact- MRSA 08/22/2019 6:33 PM MOTOR VEHICLE DISPATCHER documented as of this encounter Insurance Type Payer Benefit Subscriber ID Effective Phone Address Plan / Dates Group Medicare MEDICARE MEDICARE xxxxxxxxxxx 2008- [phone] [address] PART A & B Present [id number] [place] [id number] documented as of this encounter
--- OUTSIDE RECORDS SUMMARY | 2019-12-13 10:15 | XMS REPORT | Summary of Care ---
Author Author [facility] - Health Organization [facility] - Health Address Unknown Phone Unavailable Care Team Providers Care Wild Life Manager Name Role Phone Pcp, Patient Does Not Have A PCP [phone] Reason for Visit * Reason Comments Wound Care Encounter Details Care Team Description Date Type Department Gina Mark, MONISHA [address] [place], [place] [id number] Diabetic ulcer of other part of right fo ot associated with diabetes mellitus due to underlying condition, limited to breakdown of skin (Primary Dx); Charcot's joint of right foot; 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inopathy without macular edema, with long-term current use of insulin 09/20/2019 Office Visit [facility], [address], [facility] [place] [address] Allergies No Known Allergiesdocumented as of this encounter (statuses as of 09/20/2019) Medications End Date Status Medication Sig Dispensed [...] as of this encounter (statuses as of 09/20/2019) Active Problems Problem Noted Date 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, with long-term current use of insulin Overview: Added automatically from request for tj boles [id number] Charcot's joint of right foot 09/07/2019 Overview: Added automatically from request for tj boles [id number] Obesity (BMI 30-39.9) 03/27/2018 Lesion of lower eyelid 02/17/2018 Overview: Added automatically from request for tj boles [id number] Arthritis of knee, degenerative 09/21/2013 HTN (hypertension) 03/23/2012 Diabetes mellitus 03/23/2012 documented as of this encounter (statuses as of 09/20/2019) Social History Date Tobacco Use Types Packs/Day [...] Comments Vital Sign 151/74 09/20/2019 9:27 AM NUT SIFTER Blood Pressure 72 09/20/2019 9:24 AM NUT SIFTER Pulse 36.6 C (97.8 F) 09/20/2019 9:24 AM NUT SIFTER Temperature 18 09/20/2019 9:24 AM NUT SIFTER Respiratory Rate 97% 09/20/2019 9:24 AM NUT SIFTER Oxygen Saturation - - Inhaled Oxygen Concentration 129.5 kg (285 lb 6.4 oz) 09/20/2019 9:24 AM NUT SIFTER Weight 188 cm (6' 2") 09/20/2019 9:24 AM NUT SIFTER Height 36.64 09/20/2019 9:24 AM NUT SIFTER Body Mass Index documented in this encounter Progress Notes * Gina Mark DPM - 09/20/2019 9:20 AM NUT SIFTER Chief Complaint: Diabetic foot ulcer Referring Provider: [...] file Gets together: Not on file Attends jew service: Not on file Active member of [...] with him today RTC in 1 week Lisette's Attestation Rodríguez Rivera , am scribing for, [...] xam, assessment and plan. Gina Mark DPM Poultry Processing Supervisor Podiatric Medicine and Surgery Department of Orthopaedic Surgery & Rehabilitation 09/20/19 3:23 PM SIFTER * Elizabeth Leigh MA - 09/20/2019 9:20 AM NUT SIFTER Laurie Marroquin is a 63 year old male is here for wound care. Wound measurements Right lateral plantar 2.5 cm length, 2.4 cm width, 0.1 cm depth Patient arrived with local dressing Wound cleansed with Dakins solutions SIFTER documented in this encounter Plan of Treatment Care Team Description Date Type Specialty Gina Mark DPM [address] [place], [place] [id number] 09/27/2019 Office Visit Surgery Denise Rizo, RD [address] [place], [place] [address] 12/23/2019 Property Worker Visit Endocrinology Diabe aj [facility] [address] [place] [address] 12/24/2019 Office Visit Ophthalmology Health Maintenance [...] Noted Time Contact- MRSA 08/22/2019 6:33 PM NUT SIFTER documented as of this encounter Insurance Type Payer Benefit Subscriber ID Effective Phone Address Plan / Dates Group Medicare MEDICARE MEDICARE xxxxxxxxxxx 2008- [phone] [address] PART A & B Present [id number] [place] [id number] documented as of this encounter
--- OUTSIDE RECORDS SUMMARY | 2019-12-13 10:15 | XMS REPORT | Summary of Care ---
Author Author [facility] - Health Organization [facility] - Health Address Unknown Phone Unavailable Care Team Providers Care Mend Worker Name Role Phone Pcp, Patient Does Not Have A PCP [phone] Reason for Visit * Reason Comments Diabetes Mellitus II * (MARGE) Referred By Contact Referred To Contact Status Reason Specialty Diagnoses / Procedures Anh Molina MD [address] [place] [id number] Denise Rizo, RD [address] [place] [address] Closed Dietary and Diagnoses Nutritional Type 2 diabetes Service mellitus with hyperglycemia, with long-term current use of insulin P rocedures CONSULT/REFERRAL NUTRITION Encounter Details Care Team Description Date Type Department Denise Rizo, RD [address] [place], [place] [address] 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inopathy without macular edema, with long-term current use of insulin (Primary Dx); Obesity (BMI 30-39.9) 09/08/2019 Clinical Genetics Laboratory Chief Visit [facility] [address] [place] [phone] Allergies No Known Allergiesdocumented as of this encounter (statuses as of 09/08/2019) Medications End Date Status Medication Sig Dispensed [...] with long-term current use of insulin Active amoxicillin/potassium 0 clav (AMOXICILLIN-POT 9 CLAVULANATE ORAL) Active clindamycin 300 mg 2 capsules 0 [...] sodium (ALEVE Take by 0 ORAL) mouth. documented as of this encounter (statuses as of 09/08/2019) Active Problems Problem Noted Date 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, with long-term current use of insulin Overview: Added automatically from request for tj pachecoery [id number] Charcot's joint of right foot 09/07/2019 Overview: Added automatically from request for tj pachecoery [id number] Obesity (BMI 30-39.9) 03/27/2018 Lesion of lower eyelid 02/17/2018 Overview: Added automatically from request for tj boles [id number] Arthritis of knee, degenerative 09/21/2013 HTN (hypertension) 03/23/2012 Diabetes mellitus 03/23/2012 documented as of this encounter (statuses as of 09/08/2019) Social History Date Tobacco Use Types Packs/Day [...] Signs Reading Time Taken Comments Vital Sign - - Blood Pressure - - Pulse - - Temperature - - Respiratory Rate - - Oxygen Saturation - - Inhaled Oxygen Concentration 130.6 kg (288 lb) 09/08/2019 1:53 PM PULPING MACHINE OPERATOR Weight - - Height 36.98 08/23/2019 11:16 AM PULPING MACHINE OPERATOR Body Mass Index documented in this encounter Progress Notes * Denise Rizo, RD - 09/08/2019 2:00 PM PULPING MACHINE OPERATOR Diabetic Education [id number] Name: Laurie Marroquin Date: 09/08/2019 Referring Provider: Nikia Molina MD Accompanied by: alone Referral Date: 06/17/19 Reason for visit: type 2 diabetes Occupation: retired Sex: male Ethnicity: Visit Summary: Patient is going in for surgery tomorrow for sores in his feet. L ost pinky toe and will continue wound healing. Patient lost 62 lbs over the past year by avoiding eating after 7pm. Patient is going through PT for leg, but will pause it until he's cleared post-surgery. Reviewed most recent clinical note. Ht Readings from Last 1 Encounters: 08/23/19 6' 2" (1.88 m) Wt Readings from Last 1 Encounters: 09/08/19 288 lb (130.6 kg) Body mass index is 36.98 kg/m. POCT HBA1C (%) Date Value 08/25/2015 12.3 (A) Diabetes Type: Type 2 diabetes, Onset: 1999 Family History of Diabetes: not sure Previous Diabetes Education: some Diabetes Knowledge/Skill Level: survival Learning Needs Identified by Patient: introduction to diabetes, healthy eating, being active, taking medication, monitoriing, problem solving, healthy coping an d reducing risk Barriers: none Self-Management skills and Diabetes-related behavior education based on the foll owing content areas: Diabetes Disease Process and Treatment Options - Assessment if the patient under standing: needs reviews Definition, types, diagnostic criteria of diabetes, causes, risk factors, sympto ms of diabetes, importance of diabetic control, ongoing education, and possible treatment changes/options. Nutritional Management - Assessment of patient understanding: needs reviews Carb consistent meal plan with portion control and limiting sweetened beverages. Explained what foods are considered carbohydrates and what different serving siz es look like using food models and diabetic exchange lists. Discussed using the plate method to portion control meals. Provided patient w/grocery list of health ier items to create meals from. Also provided patient w/carb counting book. Prov ided patient w/tips on how to eat out healthy and how to reduce amount of refine d/simple carbs to help better maintain his BG. Patient enjoys eating peanut butter off a spoon. Will occasionally have corn tor tilla w/jalapeno sauce and cheese. Will eat marsha chips. Prefers venison to beef . Initial Diet Screen Eating 3 meals/day: skips lunch most often Snack: coffee w/milk and equal Breakfast: 1 hb egg, sometimes w/ toast ([employer] 15 grain) w/pb Snack: none OR popcorn (sometimes popped at home and sometimes bought from [employer]) Lunch: skips Snack: peanut butter OR marsha chips (low sodium) Dinner: Radha Callander's (chicken w/cream of mushroom soup or pot pie) OR chef german' s salad w/cashews Beverages: SF flavored water, diet soda a couple times a week, zero calorie swee t tea Water: 80+ fl oz Frequency of restaurant meals: once a month Alcohol: very rare Physical Activity - Assessment of patient understanding: needs reviews Incorporating activity into lifestyle. Benefits of cardiovascular and resistanc e training activity on blood sugar and weight management. Current exercise regimen: none. Monitoring Blood Glucose - Assessment of patient understanding: needs reviews Reviewed testing technique, times, record keeping, blood sugar targets, and ofe ps disposal. Recommended testinx/day Patient currently testing with: FreeStyle Lite Frequency of testinx/day Diabetes Medications - Assessment of patient understanding: needs reviews Current Diabetes Medications/Insulin Insulin: toujeo 65 units at night Humalog 25 units 3x/day Current Outpatient Medications Medication Sig Dispense Refill amoxicillin/potassium clav (AMOXICILLIN-POT CLAVULANATE ORAL) BD INSULIN PEN NEEDLE UF 29 gauge x 1/2" Ndle TEST QID clindamycin 300 mg capsule 2 capsules furosemide 40 mg tablet TK 1 T PO BID hydrALAZINE 25 mg tablet TK 1 T PO TID WF mupirocin 2 % ointment ADONIS EXT AA TID FOR 10 DAYS naproxen sodium (ALEVE ORAL) Take by mouth. insulin glargine U-300 conc (TOUJEO MAX U-300 SOLOSTAR) 300 unit/mL (3 mL) I nPn inject 65 Units under the skin at bedtime. 15 Syringe 1 insulin lispro (HUMALOG KWIKPEN INSULIN) 200 unit/mL (3 mL) InPn inject 20 U nits under the skin 3 (three) times daily with meals. 15 Syringe 1 acetaminophen (TYLENOL EXTRA STRENGTH ORAL) Take by mouth. allopurinol 300 mg tablet Take 300 mg by mouth daily. amLODIPine 10 mg tablet Take 10 mg by mouth daily. aspirin (ASPIR-81 ORAL) Take by mouth. atorvastatin 40 mg tablet Take 40 mg by mouth at bedtime. DULoxetine 30 mg capsule Take 30 mg by mouth daily. Fenofibrate 160 mg tablet Take by mouth daily. lisinopril 40 mg tablet Take 40 mg by mouth daily. metoprolol succinate XL 100 mg 24 hr tablet Take 100 mg by mouth daily. multivitamin (MULTI-DAY ORAL) Take by mouth. pregabalin (LYRICA) 150 mg capsule Take 150 mg by mouth 2 (two) times daily. No current facility-administered medications for this visit. Acute Complications-Prevention, Detection and Treatment - Assessment of patient understanding: needs reviews Hypoglycemia/hyperglycemia risks, causes, signs, symptoms, treatment, prevention , problem solving, and when to call provider, safe driving practices, travel med ication ID use, and sick day care. Current Acute Symptoms: Hypoglycemia - none, Hyperglycemia - none Wallet card/Medical ID: no Carries Quick Carb: No Chronic Complications-Prevention, Detection and Treatment - Assessment of patie nt understanding: needs reviews Risk reduction strategies for the prevention and treatment of nephropathy, neuro jessica, infections, and cardiovascular disease. Essential care guidelines (PCP/de ntal/eye visits), foot care, signs and symptoms of infection, skin care and hygi kimi. Recommended vaccines and benefits of smoking cessation. Psychosocial Adjustment and Strategies - Assessment of patient understanding: bernarda garcia reviews Effects of stress on blood glucose and healthy coping strategies, problem-solvin g to identify individual stress triggers, tools to use to avoid, alter, or adapt responses, depression risks/symptoms/treatments. Provided with [facility] and [facility] information. Self Management Goals Set By Patient Goal Achievement Healthy Eating I will eat protein snacks to increase intake of protein for impro wallace wound healing. I will limit carbs at dinner to no more than 30 grams and check blood sugars - i ncrease non-starchy vegetables (nsv) and protein. First visit - New goal Diabetes Self-Management Support (DSMS) Plan List the plan that have been decided upon with the patient to sustain a lifetime of living with diabetes beyond the formal diabetes education process: introduct ion to diabetes, healthy eating, being active, taking medication, monitorkaushal smiley solving, healthy coping and reducing risk Educational materials given: What is diabetes, Type I and Type II, Hypoglycemia causes and management, Hyperg lycemia causes and management, Hg A1C - Know your number, Diabetics meal plannin g, Build a balanced meal plan, Cholesterol target range , Diabetic Foot Exam, Di abetic eye complications: Diabetes and your eyes, Diebetic Neuropathy, Low carbo hydrate diet, Dash diet, Making healthy fast food choices, Dinning out with diab etes, Reading nutrition lables and Increasing physical activity Patient Assistance Provided: Supplies Given: Food diary and Ba log book Follow-Up: [address], LD, CDE [facility] Garbage Worker [facility] [place] [address] Electronically signed by: Denise Rizo RD 09/08/2019 Time of visit with patient today equaled: Total Time: 60 minutes, of which more than 50% was for counseling and coordination of care. [facility] ING MACHINE OPERATOR documented in this encounter Plan of Treatment Care Team Description Date Type Specialty Gina Mark DPM [address] [place], [facility] 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inopathy without macular edema, with long-term current use of insulin 09/09/2019 Hospital Surgery Encounter Haylie Tomas RN 09/09/2019 Anesthesia Surgery Event Gina Mark DPM [address] [place] [address] [phone] OSTECTOMY 09/09/2019 Surgery Surgery Darrius, Denise, RD [address] [place] [address] [phone] 12/23/2019 Clinical Genetics Laboratory Chief Visit Endocrinology [facility]abe [facility] [address] [place] [address]. [place] [address] 12/24/2019 Office Visit Ophthalmology Health [...] filedocumented in this encounter Visit Diagnoses Diagnosis 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inopathy without macular edema, with long-term current u se of insulin - Primary Obesity (BMI 30-39.9) Obesity, unspecified documented in this encounter Additional Health Concerns Resolved Time Infection Noted Time Contact- MRSA 08/22/2019 6:33 PM PULPING MACHINE OPERATOR documented as of this encounter Insurance Type Payer Benefit Subscriber ID Effective Phone Address Plan / Dates Group Medicare MEDICARE MEDICARE xxxxxxxxxxx 2008- [phone] [address] PART A & B Present [id number] CORDELIA RANDALL [phone] documented as of this encounter
--- OUTSIDE RECORDS SUMMARY | 2019-12-13 10:15 | XMS REPORT | Summary of Care ---
Author Author [facility] - Health Organization [facility] - Health Address Unknown Phone Unavailable Care Team Providers Care Social Service Director Name Role Phone Pcp, Patient Does Not Have A PCP [phone] Reason for Visit * Reason Comments Wound Care Encounter Details Care Team Description Date Type Department Gina Mark, MONISHA [address] [place], [place] [id number] Diabetic ulcer of other part of right fo ot associated with diabetes mellitus due to underlying condition, limited to breakdown of skin (Primary Dx); Charcot's arthropathy associated with type 2 diabetes mellitus; Comprehensive diabetic foot examination, type 2 DM, encounter for; Diabetes mellitus type 2, insulin dependent 09/06/2019 Office Visit [facility], [address] [place] [address] Allergies No Known Allergiesdocumented as of this encounter (statuses as of 09/14/2019) Medications End Date Status Medication Sig Dispensed [...] hyperglycemia, with long-term current use of insulin documented as of this encounter (statuses as of 09/14/2019) Active Problems Problem Noted Date 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, with long-term current use of insulin Overview: [facility] [id number] Charcot's joint of right foot 09/07/2019 Overview: [facility] [id number] Obesity (BMI 30-39.9) 03/27/2018 Lesion of lower eyelid 02/17/2018 Overview: [facility] [id number] Arthritis of knee, degenerative 09/21/2013 HTN (hypertension) 03/23/2012 Diabetes mellitus 03/23/2012 documented as of this encounter (statuses as of 09/14/2019) Social History Date Tobacco Use Types Packs/Day [...] Signs Reading Time Taken Comments Vital Sign 136/73 09/06/2019 1:15 PM SALES DONOR RECRUITMENT REPRESENTATIVE Blood Pressure 98 09/06/2019 1:15 PM SALES DONOR RECRUITMENT REPRESENTATIVE Pulse 36.4 C (97.6 F) 09/06/2019 1:15 PM SALES DONOR RECRUITMENT REPRESENTATIVE Temperature 28 09/06/2019 1:15 PM SALES DONOR RECRUITMENT REPRESENTATIVE Respiratory Rate 99% 09/06/2019 1:15 PM SALES DONOR RECRUITMENT REPRESENTATIVE Oxygen Saturation - - Inhaled Oxygen Concentration 130.7 kg (288 lb 3.2 oz) 09/06/2019 1:15 PM SALES DONOR RECRUITMENT REPRESENTATIVE Weight - - Height 37 08/23/2019 11:16 AM SALES DONOR RECRUITMENT REPRESENTATIVE Body Mass Index documented in this encounter Progress Notes * RamseyMaria E, CHIEF DIVERSITY OFFICER - 09/06/2019 1:40 PM SALES DONOR RECRUITMENT REPRESENTATIVE Laurie Marroquin is a 63 year old male presents to the clinic per ambulation wit h a cane for wound care evaluation of right foot with . Patient report s 03/20 pain level, fall risk assessed, allergies reviewed, and pharmacy reviewed . Wound#1 Wound etiology: diabetic or neurotrophic Anatomic location: Foot right Age of wound: chronic > 1 month Photos Taken Yes Vitals Taken Yes Reviewed allergies Yes Reviewed medications Yes Wound Description: Location: right plantar Size: 2.2 cm length, 2.4 cm width, 2 cm depth Total Area: 5.28 cm/sq Shape: oval Type of wound: partial [...] Wound Description: Location: right lateral foot Size: 1 cm length, 0.6 cm width, 4.6 cm depth Total Area: 0.6 cm/sq Shape: oval Type of wound: partial thickness wound Exudate: amount moderate, color serosanguinous, consistency watery Pitting Edema : no Sepsis: odor detected Surrounding skin: erythematous and intact Maceration: present, location: lana-wound Edges: not attached Epithelialization: not present Tissue Bed: granulation tissue: present, 100% Necrotic Tissue: Not present. Tenderness or pain: no pain Dressing upon arrival:local dressing Dressing removed and Wound washed with 0.25% Dakins Solution Devitalized Tissue Removed: yes, per Dr. Mark Packed wound with 1/4" Iodoform packing strip covered with dry gauze, wrapped wi th Kerlix, and secured with 4" coban. Wounds' tunnels connect one wound to the o ther. Patient tolerated wound care well, he denies any further question or conc erns at this time. Patient will be scheduled by Dr. Mark for surgery. Follow up will be determined after procedure. S DONOR RECRUITMENT REPRESENTATIVE * Gina Mark, MONISHA - 09/06/2019 1:40 PM SALES DONOR RECRUITMENT REPRESENTATIVE Chief Complaint: Diabetic foot ulcer Referring Provider: [...] relates no new pedal concerns this visit. Past Medical History: Past Medical [...] file Gets together: Not on file Attends baptism service: Not on file Active member of [...] 5th ray amputation site- plantar wound Measurements: 09/06/19: Pre-debridement: 2.2cm L x 2.4cm W [...] #2: Location: Dorsal Lateral Styloid Process Measurements: 09/06/19: Pre-debridement: 1.0cm L x 0.6cm W x 4.6cm D- communicated with the p lantar wound Post-debridement: 1.0cm L x 0.6cm w x 4.6cm D- bleeding, granular 08/23/19: Pre-debridement: 1.5cm L x 1.5cm W [...] to and including subcutaneous tissue l evel, muscle, bone Tissue type removed: Biofilm, slough, devitalized tissue Instrument: Scapel/Blade:Yes Curette:Yes Forceps: No Scissors: No Both wounds dressed with Dakin's Wet to Dry Home health orders updated Continue Rx: Clindamycin 300 mg TID x 10 days Monitor skin closely for any signs of skin breakdown Conservative and surgical treatment options discussed with patient. It is clear that the patient has not responded well to extensive conservative treatment opti ons in the past and is having residual pain, limitations in activity levels, and overall interferences with activities of daily living. He would like to proceed with surgical intervention as discussed in detail with him during this visit to include right residual 5th met base amputation. Laurie Marroquin has been given an opportunity to ask questions about his condition, alternative forms of treat ment, risks of nontreatment, the procedures to be performed, and the risks and h azards involved. All questions have been answered and patient has related unders tanding. No guarantees have been implied or made. The patient wishes to proceed with surgery at this time. Preoperative and postoperative expectations discussed with patient. Pre-operative evaluation/clearance to be performed by primary care physician/medical physician, anesthesia team, prior to operative intervention for evaluation of medical preparedness to undergo anesthesia and operative stres s. Pt to report to ED for any local or systemic signs of infection, discussed in detail with him today RTC in 2 weeks Scribe's Attestation Rodríguez Rivera , am scribing for, and in the presence of, Gina nielsen DPM who performed the services described here-in. Rodríguez Rodriguez, September 06, 2019, 1:27 PM Physician's Attestation I, Gina Mark DPM, personally performed and/or ordered the services [...] xam, assessment and plan. Gina Mark DPM 1 Year Olds Preschool Teacher Podiatric Medicine and Surgery Department of Orthopaedic Surgery & Rehabilitation 09/06/19 4:01 PM S DONOR RECRUITMENT REPRESENTATIVE documented in this encounter Plan of Treatment Care Team Description Date Type Specialty Gina Mark DPM [address] [place], [place] [address] 09/20/2019 Office Visit Surgery Denise Rizo, RD [address] [place] [address] [phone] 12/23/2019 Wire Coater Visit Endocrinology [facility]abe [facility] [address] [place] [address]. [place] [address] 12/24/2019 Office Visit Ophthalmology Health [...] Procedure Name Priority Date/Time Associated Diag nosis WOUND CULTURE Routine 09/06/2019 Diabetic ulcer of other 4:46 PM SALES DONOR RECRUITMENT REPRESENTATIVE part of right foot associated with diabetes mellitus due to underlying condition, limited to breakdown of skin Charcot's arthropathy associated with type 2 diabetes mellitus Comprehensive diabetic foot examination, type 2 DM, encounter for Diabetes mellitus type 2, insulin dependent WOUND/ASPIRATE OR ABSCESS Routine 09/06/2019 Diab etic ulcer of other CULTURE 4:46 PM SALES DONOR RECRUITMENT REPRESENTATIVE part of right foot associated with diabetes mellitus due to underlying condition, limited to breakdown of skin Charcot's arthropathy associated with type 2 diabetes mellitus Comprehensive diabetic foot examination, type 2 DM, encounter for Diabetes mellitus type 2, insulin dependent documented in this encounter Results * WOUND CULTURE (09/06/2019 4:46 PM SALES DONOR RECRUITMENT REPRESENTATIVE) Wound Culture 1+ Skin chirag: Commensal skin [facility] microorganisms only. SERVICES Gram stain Occasional (Rare) Gram [facility] positive cocci SERVICES Gram stain Occasional (Rare) PMNs or [facility] Mononuclear cells observed SERVICES Specimen Swab - FOOT, RIGHT Narrative Performed At Bacterial pathogens associated with wou nd infections were not identified, which [facility] include Pseudomonas aeruginosa and Staphylococcus aur eus (MRSA or MSSA). SERVICES Performing Organization Address City/State/Zipcode Ph one Number [facility] CLIA: [id number], [address] [place] [id number] [facility] documented in this encounter Visit Diagnoses Diagnosis Diabetic [...] Noted Time Contact- MRSA 08/22/2019 6:33 PM SALES DONOR RECRUITMENT REPRESENTATIVE documented as of this encounter Insurance Type Payer Benefit Subscriber ID Effective Phone Address Plan / Dates Group Medicare MEDICARE MEDICARE xxxxxxxxxxx 2008- [phone] P[address] B PART A & B Present [id number] [place]DELIA R[place] [phone] documented as of this encounter
--- OUTSIDE RECORDS SUMMARY | 2019-12-13 10:15 | XMS REPORT | Summary of Care ---
Author Author [facility] - Health Organization [facility] - Health Address Unknown Phone Unavailable Care Team Providers Care News Broadcaster Name Role Phone Pcp, Patient Does Not Have A PCP [phone] Reason for Visit * Reason Comments Diabetic Foot Ulcer Encounter Details Care Team Description Date Type Department Gina Mark, MONISHA [address] [place] [address] Diabetic ulcer of other part of right fo ot associated with diabetes mellitus due to underlying condition, limited to breakdown of skin (Primary Dx); Charcot's joint of right foot; 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inopathy without macular edema, with long-term current use of insulin 09/27/2019 Office Visit [facility] W[facility], [address], [facility] [address] Allergies No Known Allergiesdocumented as [...] insulin Overview: [facility] [id number] Charcot's joint of right foot 09/07/2019 Overview: [facility] [id number] Obesity (BMI 30-39.9) 03/27/2018 Lesion of lower eyelid 02/17/2018 Overview: Added automatically from request for tj boles [id number] Arthritis of knee, degenerative 09/21/2013 HTN (hypertension) [...] Signs Not on filedocumented in this encounter Progress Notes * Gina Mark, DPM - 09/27/2019 9:20 AM CLIENT EXPERIENCE CONSULTANT Chief Complaint: Diabetic foot ulcer Referring Provider: [...] file Gets together: Not on file Attends pentecostalism service: Not on file Active member of [...] All medical record entries made by the Scribrocio were at my dire ction and personally dictated by me. I have reviewed the chart and agree that t he record accurately reflects my personal performance of the history, physical e xam, assessment and plan. Gina Mark DPM Iron Worker Podiatric Medicine and Surgery Department of Orthopaedic Surgery & Rehabilitation 09/27/19 9:18 AM NT EXPERIENCE CONSULTANT documented in this encounter Plan of Treatment Care Team Description Date Type Specialty Gina Mark DPM [address] [place] [address] [phone] 10/04/2019 Office Visit Surgery Denise Rizo, RD [address] [place] [address] [phone] 12/23/2019 Advanced Manufacturing Technician Visit Endocrinology Diabe aj & Metabolism Yehuda Peres MD [address] [place] [address]. [place], [place] [address] 12/24/2019 Office Visit Ophthalmology Health Maintenance Due [...] Noted Time Contact- MRSA 08/22/2019 6:33 PM CLIENT EXPERIENCE CONSULTANT documented as of this encounter Insurance Type Payer Benefit Subscriber ID Effective Phone Address Plan / Dates Group Medicare MEDICARE MEDICARE xxxxxxxxxxx 2008- [phone] P. O. B OX PART A & B Present [id number] [place] [id number] documented as of this encounter
--- OUTSIDE RECORDS SUMMARY | 2019-12-13 10:15 | XMS REPORT | Summary of Care ---
Author Author [facility] - Health Organization [facility] - Health Address Unknown Phone Unavailable Care Team Providers Care Tool Profiling Machine Set Up Operator Name Role Phone Pcp, Patient Does Not Have A PCP Encounter Details Care Team Description Date Type Department Doctor Unassigned, [place] [address] [place] [address] 09/27/[address] 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, with long-term current use of insulin Overview: Added automatically from request for spencer rgery [id number] Charcot's joint of right foot 09/07/2019 Overview: Added automatically from request for [facility] [id number] Obesity (BMI 30-39.9) 03/27/2018 Lesion of lower eyelid 02/17/2018 Overview: Added automatically from request for spencer rgery [id number] Arthritis of knee, degenerative 09/21/2013 HTN (hypertension) 03/23/2012 Diabetes mellitus 03/23/2012 documented as of this encounter (statuses as of 09/29/2019) Social History Date Tobacco Use Types Packs/Day [...] Care Team Description Date Type Specialty Gina Mark, MONISHA [address] [place] [address] [phone] 10/04/2019 Office Visit Surgery Darrius, Denise, RD [address] [place] [address] [phone] 12/23/2019 Fountain Server Visit Endocrinology Diabe aj & Metabolism Yehuda Peres MD [address] [place] [address]. [place] [address] 12/24/2019 Office Visit Ophthalmology Health [...] Diag nosis HOME HEALTH - OTHER Routine 09/27/2019 12:01 AM PHYSICAL INTEGRATION PRACTITIONER documented in this encounter Results Not on filedocumented in this encounter Additional Health Concerns Resolved Time Infection Noted Time Contact- MRSA 08/22/2019 6:33 PM PHYSICAL INTEGRATION PRACTITIONER documented as of this encounter Insurance Type Payer Benefit Subscriber ID Effective Phone Address Plan / Dates Group Medicare MEDICARE MEDICARE xxxxxxxxxxx 2008- [phone] P. O. B OX PART A & B Present [id number] [place] [phone] documented as of this encounter
--- OUTSIDE RECORDS SUMMARY | 2019-12-13 10:15 | XMS REPORT | Summary of Care ---
Author Author [facility] - Health Organization [facility] - Health Address Unknown Phone Unavailable Care Team Providers Care Senior Foreman Name Role Phone Pcp, Patient Does Not Have A PCP [phone] Reason for Visit * Reason Comments Wound Care Encounter Details Care Team Description Date Type Department Gina Mark DPM [address] [place], [place] [id number] Diabetic ulcer of other part of right fo ot associated with diabetes mellitus due to underlying condition, limited to breakdown of skin (Primary Dx); Charcot's arthropathy associated with type 2 diabetes mellitus; Comprehensive diabetic foot examination, type 2 DM, encounter for; Diabetes mellitus type 2, insulin dependent 09/06/2019 Office Visit [facility], [address] [place] [address] Allergies No Known Allergiesdocumented as of this encounter (statuses as of 09/06/2019) Medications End Date Status Medication Sig Dispensed [...] as of this encounter (statuses as of 09/06/2019) Active Problems Problem Noted Date Obesity (BMI 30-39.9) 03/27/2018 Lesion of lower eyelid 02/17/2018 Overview: Added automatically from request for tj boles [id number] Arthritis of knee, degenerative 09/21/2013 HTN (hypertension) 03/23/2012 Diabetes mellitus 03/23/2012 documented as of this encounter (statuses as of 09/06/2019) Social History Date Tobacco Use Types Packs/Day [...] Comments Vital Sign 136/73 09/06/2019 1:15 PM FLOOR WORKER WELL SERVICE Blood Pressure 98 09/06/2019 1:15 PM FLOOR WORKER WELL SERVICE Pulse 36.4 C (97.6 F) 09/06/2019 1:15 PM FLOOR WORKER WELL SERVICE Temperature 28 09/06/2019 1:15 PM FLOOR WORKER WELL SERVICE Respiratory Rate 99% 09/06/2019 1:15 PM FLOOR WORKER WELL SERVICE Oxygen Saturation - - Inhaled Oxygen Concentration 130.7 kg (288 lb 3.2 oz) 09/06/2019 1:15 PM FLOOR WORKER WELL SERVICE Weight - - Height 37 08/23/2019 11:16 AM FLOOR WORKER WELL SERVICE Body Mass Index documented in this encounter Progress Notes * Gina Mark DPM - 09/06/2019 1:40 PM FLOOR WORKER WELL SERVICE Chief Complaint: Diabetic foot ulcer Referring Provider: [...] file Gets together: Not on file Attends shinto service: Not on file Active member of [...] without IV contrast may be helpful. Diagnosis: No diagnosis found. Plan: Patient evaluated and examined Condition and [...] September 06, 2019, 1:27 PM Physician's Attestation Gina Rivera DPM, personally performed [...] xam, assessment and plan. Gina Mark DPM Technical Services Coordinator Podiatric Medicine and Surgery Department of Orthopaedic Surgery & Rehabilitation 09/06/19 4:01 PM R WORKER WELL SERVICE documented in this encounter Plan of Treatment Care Team Description Date Type Specialty Darrius, Denise, RD [address] [place] [address] [phone] 09/08/2019 Hand Sizer Visit Endocrinology Diabe aj & Metabolism Yehuda Peres MD [address] [place] [address]. [place], [place] [id number] 12/24/2019 Office Visit Ophthalmology Date/Time Name Type Priority Associated Diag noses 09/06/2019 4:46 PM FLOOR WORKER WELL SERVICE WOUND/ASPIRATE OR ABSCESS LAB Routine Diab etic ulcer of other CULTURE part of right foot associated with diabetes mellitus due to underlying condition, limited to breakdown of skin Charcot's arthropathy associated with type 2 diabetes mellitus Comprehensive diabetic foot examination, type 2 DM, encounter for Diabetes mellitus type 2, insulin dependent 09/06/2019 4:46 PM FLOOR WORKER WELL SERVICE WOUND CULTURE LAB Routine Diabetic ulcer of other part of right foot associated with diabetes mellitus due to underlying condition, limited to breakdown of skin Charcot's arthropathy associated with type 2 diabetes mellitus Comprehensive diabetic foot examination, type 2 DM, encounter for Diabetes mellitus type 2, insulin dependent Order Schedule Name Type Priority Associated Diag noses Expected: 09/06/2019, Expires: 1 WOUND/ASPIRATE OR ABSCESS LAB Routine Diab etic ulcer of other CULTURE part of right foot associated with diabetes mellitus due to underlying condition, limited to breakdown of skin Charcot's arthropathy associated with type 2 diabetes mellitus Comprehensive diabetic foot examination, type 2 DM, encounter for Diabetes mellitus type 2, insulin dependent Health Maintenance Due Date Last Done Comments [...] Noted Time Contact- MRSA 08/22/2019 6:33 PM FLOOR WORKER WELL SERVICE documented as of this encounter Insurance Type Payer Benefit Subscriber ID Effective Phone Address Plan / Dates Group Medicare MEDICARE MEDICARE xxxxxxxxxxx 2008- [phone] P. O. B OX PART A & B Present [id number] [place] [phone] documented as of this encounter
--- OUTSIDE RECORDS SUMMARY | 2019-12-13 10:15 | XMS REPORT | Summary of Care ---
Author Author [facility] - Health Organization [facility] - Health Address Unknown Phone Unavailable Care Team Providers Care Network Security Consultant Name Role Phone Pcp, Patient Does Not Have A PCP [phone] Reason for Visit * Reason Comments Wound Care Encounter Details Care Team Description Date Type Department Gina Mark DPM [address] [place] [address] Diabetic ulcer of other part of right fo ot associated with diabetes mellitus due to underlying condition, limited to breakdown of skin (Primary Dx); Charcot's arthropathy associated with type 2 diabetes mellitus; Comprehensive diabetic foot examination, type 2 DM, encounter for; Diabetes mellitus type 2, insulin dependent 09/06/2019 Office Visit [facility] Wound C are Clinic, [place] [id number] [place], [facility] [place] [address] Allergies No Known Allergiesdocumented as [...] Added automatically from request for tj boles [id number] Charcot's joint of right foot 09/07/2019 Overview: Added automatically from request for spencer elvi [id number] Obesity (BMI 30-39.9) 03/27/2018 Lesion of lower eyelid 02/17/2018 Overview: Added automatically from request for tj boles [id number] Arthritis of knee, degenerative 09/21/2013 HTN (hypertension) [...] Comments Vital Sign 136/73 09/06/2019 1:15 PM LAPEL BASTER Blood Pressure 98 09/06/2019 1:15 PM LAPEL BASTER Pulse 36.4 C (97.6 F) 09/06/2019 1:15 PM LAPEL BASTER Temperature 28 09/06/2019 1:15 PM LAPEL BASTER Respiratory Rate 99% 09/06/2019 1:15 PM LAPEL BASTER Oxygen Saturation - - Inhaled Oxygen Concentration 130.7 kg (288 lb 3.2 oz) 09/06/2019 1:15 PM LAPEL BASTER Weight - - Height 37 08/23/2019 11:16 AM LAPEL BASTER Body Mass Index documented in this encounter Progress Notes * Maria E Mustafa, SSRS REPORT DEVELOPER - 09/06/2019 1:40 PM LAPEL BASTER Laurie Marroquin is a 63 year old male presents to the clinic per ambulation wit h a cane for wound care evaluation of right foot with . Patient report s 8/10 pain level, fall risk assessed, allergies reviewed, [...] Follow up will be determined after procedure. L BASTER * Gina Mark DPM - 09/06/2019 1:40 PM LAPEL BASTER Chief Complaint: Diabetic foot ulcer Referring Provider: [...] file Gets together: Not on file Attends judaism service: Not on file Active member of [...] with him today RTC in 2 weeks Lisette's Attestation Rodríguez Rivera , am scribing [...] xam, assessment and plan. Gina Mark DPM Quality Assurance Project Manager Podiatric Medicine and Surgery Department of Orthopaedic Surgery & Rehabilitation 09/06/19 4:01 PM L BASTER documented in this encounter Plan of Treatment Care Team Description Date Type Specialty DarriusDenise lane, RD [address] [place] [address] [phone] 09/08/2019 Potato Pancake Frier Visit Endocrinology Diabe aj & Metabolism Gina Mark DPM [address] [place], [place] [id number] 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inopathy without macular edema, with long-term current use of insulin 09/09/2019 Hospital Surgery Encounter Haylie Tomas RN 09/09/2019 Anesthesia Surgery Event Gina Mark DPM [address] [place] [address] OSTECTOMY 09/09/2019 [facility] [address] [place] [address] 12/24/2019 Office Visit Ophthalmology Date/Time Name Type Priority Associated Diag noses 09/06/2019 4:46 PM LAPEL BASTER WOUND/ASPIRATE OR ABSCESS LAB Routine Diab etic ulcer of other CULTURE part of right foot associated with diabetes mellitus due to underlying condition, limited to breakdown of skin Charcot's arthropathy associated with type 2 diabetes mellitus Comprehensive diabetic foot examination, type 2 DM, encounter for Diabetes mellitus type 2, insulin dependent 09/06/2019 4:46 PM LAPEL BASTER WOUND CULTURE LAB Routine Diabetic ulcer of [...] 09/06/2019 Diabetic ulcer of other 4:46 PM LAPEL BASTER part of right foot associated with diabetes mellitus due to underlying condition, limited to breakdown of skin Charcot's arthropathy associated with type 2 diabetes mellitus Comprehensive diabetic foot examination, type 2 DM, encounter for Diabetes mellitus type 2, insulin dependent documented in this encounter Results Not on [...] Noted Time Contact- MRSA 08/22/2019 6:33 PM LAPEL BASTER documented as of this encounter Insurance Type Payer Benefit Subscriber ID Effective Phone Address Plan / Dates Group Medicare MEDICARE MEDICARE xxxxxxxxxxx 2008- [phone] P. O. B OX PART A & B Present [id number] [place] [phone] documented as of this encounter
--- OUTSIDE RECORDS SUMMARY | 2019-12-13 10:15 | XMS REPORT | Summary of Care ---
Author Author [facility] - Health Organization [facility] - Health Address Unknown Phone Unavailable Care Team Providers Care It Help Desk Technician Name Role Phone Pcp, Patient Does Not Have A PCP [phone] Reason for Visit * Reason Comments Diabetic Foot Ulcer Encounter Details Care Team Description Date Type Department Gina Mark, MONISHA [address] [place] [address] Diabetic ulcer of other part of right fo ot associated with diabetes mellitus due to underlying condition, limited to breakdown of skin (Primary Dx); Charcot's joint of right foot; 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inopathy without macular edema, with long-term current use of insulin 09/27/2019 Office Visit [facility] Wound C are [facility], [address], [facility] [place] [address] Allergies No Known Allergiesdocumented as [...] insulin Overview: [facility] [id number] Charcot's joint of right foot 09/07/2019 Overview: [facility] [id number] Obesity (BMI 30-39.9) 03/27/2018 Lesion of lower eyelid 02/17/2018 Overview: Added automatically from request for tj boles [id number] Arthritis of knee, degenerative 09/21/2013 HTN (hypertension) [...] Gina Mark, DPM - 09/27/2019 9:20 AM STILL WORKER HELPER Chief Complaint: Diabetic foot ulcer Referring Provider: [...] file Gets together: Not on file Attends temple service: Not on file Active member of [...] xam, assessment and plan. Gina Mark DPM Associate Account Manager Podiatric Medicine and Surgery Department of Orthopaedic Surgery & Rehabilitation 09/27/19 9:18 AM L WORKER HELPER documented in this encounter Plan of Treatment Care Team Description Date Type Specialty Gina Mark DPM [address] [place] [address] [phone] 10/04/2019 Office Visit Surgery Denise Rizo, RD [address] [place] [address] [phone] 12/23/2019 Blueprint Duplicator Visit Endocrinology Diabe aj & Metabolism Yehuda Peres MD [address] [place] [address]. [place], [place] [address] 12/24/2019 Office Visit Ophthalmology Health Maintenance Due [...] Noted Time Contact- MRSA 08/22/2019 6:33 PM STILL WORKER HELPER documented as of this encounter Insurance Type Payer Benefit Subscriber ID Effective Phone Address Plan / Dates Group Medicare MEDICARE MEDICARE xxxxxxxxxxx 2008- [phone] P. O. B OX PART A & B Present [id number] [place] [id number] documented as of this encounter
--- OUTSIDE RECORDS SUMMARY | 2019-12-13 10:15 | XMS REPORT | Summary of Care ---
Author Author [facility] - Health Organization [facility] - Health Address Unknown Phone Unavailable Care Team Providers Care Billet Cutter Name Role Phone Pcp, Patient Does Not Have A PCP [phone] Reason for Visit * Reason Comments Wound Care Encounter Details Care Team Description Date Type Department Gina Mark, MONISHA [address] [place], [place] [id number] Diabetic ulcer of other part of right fo ot associated with diabetes mellitus due to underlying condition, limited to breakdown of skin (Primary Dx); Charcot's joint of right foot; 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inopathy without macular edema, with long-term current use of insulin 09/13/2019 Office Visit [facility] Wound C are Clinic, [address], [facility] [place] [address] Allergies No Known Allergiesdocumented as of this encounter (statuses as of 09/13/2019) Medications End Date Status Medication Sig Dispensed [...] as of this encounter (statuses as of 09/13/2019) Active Problems Problem Noted Date 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, with long-term current use of insulin Overview: Added automatically from request for tj boles [id number] Charcot's joint of right foot 09/07/2019 Overview: Added automatically from request for tj boles [id number] Obesity (BMI 30-39.9) 03/27/2018 Lesion of lower eyelid 02/17/2018 Overview: Added automatically from request for tj boles [id number] Arthritis of knee, degenerative 09/21/2013 HTN (hypertension) 03/23/2012 Diabetes mellitus 03/23/2012 documented as of this encounter (statuses as of 09/13/2019) Social History Date Tobacco Use Types Packs/Day [...] Signs Reading Time Taken Comments Vital Sign 140/72 09/13/2019 8:16 AM PROTECTOR PLATE ATTACHER pt states this i s a normal reading Blood Pressure 95 09/13/2019 8:16 AM PROTECTOR PLATE ATTACHER Pulse 36.6 C (97.9 F) 09/13/2019 8:16 AM PROTECTOR PLATE ATTACHER Temperature 23 09/13/2019 8:16 AM PROTECTOR PLATE ATTACHER Respiratory Rate 94% 09/13/2019 8:16 AM PROTECTOR PLATE ATTACHER Oxygen Saturation - - Inhaled Oxygen Concentration 128.9 kg (284 lb 3.2 oz) 09/13/2019 8:16 AM PROTECTOR PLATE ATTACHER Weight 188 cm (6' 2") 09/13/2019 8:16 AM PROTECTOR PLATE ATTACHER Height 36.49 09/13/2019 8:16 AM PROTECTOR PLATE ATTACHER Body Mass Index documented in this encounter Progress Notes * Gina Mark DPM - 09/13/2019 8:20 AM PROTECTOR PLATE ATTACHER Chief Complaint: Diabetic foot ulcer Referring Provider: [...] antibiotics and relates no new pedal concerns. Past Medical History: Past Medical History: Diagnosis [...] file Gets together: Not on file Attends jewish service: Not on file Active member of [...] or bleeding tendencies Physical Exam: BP (!) 140/72 (BP Location: Right arm, Patient Position: Sitting, BP CUFF SIZE: Adult Large) | Pulse 95 | Temp 36.6 C (97.9 F) (Oral) | Resp 23 | Ht 6' 2" (1.88 m) | Wt 284 lb 3.2 oz (128.9 kg) | SpO2 94% | BMI 36.49 kg/m Body mass index is 36.49 kg/m. 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 Rodríguez Rodriguez, September 13, 2019, 8:31 AM Physician's Attestation Gina Rivera DPM, personally [...] xam, assessment and plan. Gina Mark DPM Avionics Systems Repairer Podiatric Medicine and Surgery Department of Orthopaedic Surgery & Rehabilitation 09/13/19 9:20 AM ECTOR PLATE ATTACHER * Elizabeth Leigh MA - 09/13/2019 8:20 AM PROTECTOR PLATE ATTACHER Laurie Marroquin is a 63 year old male is here for wound care. Wound measurements Right plantar 2.6 cm length, 2.4 cm width, 0.1 cm depth Patient arrived with local dressing Wound cleansed with [employer] ECTOR PLATE ATTACHER documented in this encounter Plan of Treatment Care Team Description Date Type Specialty Gina Mark DPM [address] [place], [place] [address] [place] [address] [phone] 09/20/2019 Office Visit Surgery Darrius, Denise, RD [address] [place] [address] [phone] 12/23/2019 Health And Wellness Coordinator Visit [facility]ocrinology [facility]abe aj [facility] [address] [place] [address]. [place] [address] [phone] 12/24/2019 Office Visit Ophthalmology Health Maintenance Due [...] Noted Time Contact- MRSA 08/22/2019 6:33 PM PROTECTOR PLATE ATTACHER documented as of this encounter Insurance Type Payer Benefit Subscriber ID Effective Phone Address Plan / Dates Group Medicare MEDICARE MEDICARE xxxxxxxxxxx 2008- [phone] P. O. B OX PART A & B Present [id number] [place] [id number] documented as of this encounter
--- OUTSIDE RECORDS SUMMARY | 2019-12-13 10:15 | XMS REPORT | Summary of Care ---
Author Author [facility] - Health Organization [facility] - Health Address Unknown Phone Unavailable Care Team Providers Care Steel Grinder Name Role Phone Pcp, Patient Does Not Have A PCP [phone] Reason for Referral * Radiology Services ([facility]) Referred By Contact Referred To Contact Status Reason Specialty Diagnoses / Procedures Gina Mark DPM [address] [place] [address] New Request Diagnostic Diagnoses Radiology 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inopathy without macular edema, with long-term current use of insulin Charcot's joint of right foot P rocedures XR FOOT 3+ VW RIGHT Reason for Visit * Auth/Cert Referred By Contact Referred To Contact Status Reason Specialty Diagnoses / Procedures Vl Preop [address] [place] [address] Surgery Diagnoses 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inopathy without macular edema, with long-term current use of insulin [E11.3293, Z79.4] Charcot's joint of right foot [M14.671] P rocedures ND PART REMV OTHR TARSAL/METATARSAL OSTECTOMY Encounter Details Care Team Description Date Type Department Gina Mark DPM [address] [place] [address] 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inopathy without macular edema, with long-term current use of insulin 09/09/2019 Hospital [facility] Encounter Post Anesthesia Care Unit [address] [place] [address] Allergies No Known Allergiesdocumented as of this encounter (statuses as of 09/09/2019) Medications End Date Status Medication Sig Dispensed [...] Lesion of lower eyelid, Obesity (BMI 30-39.9) 09/09/2019 Discontinued amoxicillin/potassium 0 clav (AMOXICILLIN-POT 9 CLAVULANATE ORAL) documented as of this encounter (statuses as of 09/09/2019) Active Problems Problem Noted Date 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, with long-term current use of insulin Overview: Added automatically from request for tj boles [id number] Charcot's joint of right foot 09/07/2019 Overview: Added automatically from request for tj boles [id number] Obesity (BMI 30-39.9) 03/27/2018 Lesion of lower eyelid 02/17/2018 Overview: Added automatically from request for tj boles [id number] Arthritis of knee, degenerative 09/21/2013 HTN (hypertension) 03/23/2012 Diabetes mellitus 03/23/2012 documented as of this encounter (statuses as of 09/09/2019) Social History Date Tobacco Use Types Packs/Day [...] Signs Reading Time Taken Comments Vital Sign 100/75 09/09/2019 2:35 PM HYPOID GEAR TESTER Blood Pressure 78 09/09/2019 2:35 PM HYPOID GEAR TESTER Pulse 36.3 C (97.4 F) 09/09/2019 1:55 PM HYPOID GEAR TESTER Temperature 19 09/09/2019 2:35 PM HYPOID GEAR TESTER Respiratory Rate 96% 09/09/2019 2:35 PM HYPOID GEAR TESTER Oxygen Saturation - - Inhaled Oxygen Concentration 130.6 kg (288 lb) 09/09/2019 11:24 AM HYPOID GEAR TESTER Weight 188 cm (6' 2") 09/09/2019 11:24 AM HYPOID GEAR TESTER Height 36.98 09/09/2019 11:24 AM HYPOID GEAR TESTER Body Mass Index documented in this encounter Discharge Summaries * Gina Mark DPM - 09/09/2019 2:54 PM HYPOID GEAR TESTER Date of Service: 09/09/2019 ATTENDING SURGEON: Gina Mark DPM PCP: PATIENT DOES NOT HAVE A PCP PRIMARY DIAGNOSIS Chronic diabetic foot ulcer, right foot with underlying osteomyelitis FINAL DIAGNOSIS: same as above PRINCIPAL PROCEDURE: Procedure(s): OSTECTOMY ADDITIONAL PROCEDURES: none SIGNIFICANT LAB/X-RAYS: none CONDITION: good DIET: regular and diabetic ACTIVITY: As tolerated - limited DISCHARGE MEDICATIONS: Current Discharge Medication List START taking these medications Details acetaminophen-codeine (TYLENOL-CODEINE #3) 300-30 mg tablet Take 1 tablet by bin th every 4 (four) hours as needed for Pain (scale 1-3). Qty: 30 tablet, Refills: 0 Associated Diagnoses: 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inopathy without macular edema, with long-term current use o f insulin; Charcot's joint of right foot; Essential hypertension; Lesion of lowe r eyelid; Obesity (BMI 30-39.9) CONTINUE these medications which have NOT CHANGED Details BD INSULIN PEN NEEDLE UF 29 gauge [...] MAX U-300 SOLOSTAR) 300 unit/mL (3 mL) InPn inject 65 Units under the skin at bedtime. Qty: 15 Syringe, Refills: 1 Associated Diagnoses: Type 2 diabetes mellitus with hyperglycemia, with long-te rm current use of insulin insulin lispro (HUMALOG KWIKPEN INSULIN) 200 unit/mL (3 mL) InPn inject 20 Units under the skin 3 (three) times daily with meals. Qty: 15 Syringe, Refills: 1 Associated Diagnoses: Type 2 diabetes mellitus with hyperglycemia, with long-te rm current use of insulin acetaminophen (TYLENOL EXTRA STRENGTH ORAL) Take by [...] mg by mouth 2 (two) times daily. STOP taking these medications amoxicillin/potassium clav (AMOXICILLIN-POT CLAVULANATE ORAL) Comments: Reason for Stopping: WOUND CARE: Keep incision clean and dry DISCHARGE: Discharged: Home FOLLOW-UP APPOINTMENT: 09/13/2019 Patient was given discharge instructions. ID GEAR TESTER documented in this encounter Discharge Instructions * Instructions* Judy Marshall RN - 09/09/[address] Gina Mark, podiatric surgery 1. Do not remove your bandage/ cast for any reason and DO NOT get it wet! 2. Keep your bandage/ cast clean, dry and intact. If the bandage becomes loose or wet, contact the office immediately. Take baths instead of showers. Either sponge bathe or keep the operated foot out of the tub. You may use a [facility] available cast protector to cover the foot to prevent the bandage from becom ing wet. I also recommend a shower bench while bathing, especially if you are t o be non-weight bearing. 3. Remain off your feet. Your legs should be elevated past the level of your h ips. Do not sit with legs crossed or with the feet hanging down for any prolong ed length of time. 4. While resting/ sitting, lightly exercise both feet and legs as tolerated to stimulate circulation about 10 times every 30 minutes while awake to prevent blo od clots and stiffness. 5. Apply an ice pack covered by a towel on your dressing for 20 minutes out of every hour for the next 48 hours. A gel pack or zip lock plastic bag with ice c ubes works well. 6. Swelling and bruising is expected and normal. Sometimes black and blue disc oloration may appear in other parts of the foot than where surgery was performed . Also, a small amount of blood on the bandage can be expected. If bleeding is persistent or excessive, please call the office. 7. Always use the surgical shoe for walking (it may be removed while sitting or in bed). Use crutches or walker if instructed to remain non-weight bearing. D o not walk more than is necessary, especially in the first week after surgery. 8. Take all medications as directed. If medication causes stomach upset, rash, or other problems, stop taking it and call the office. 9. Curtail the use of alcohol and tobacco. Smoking will slow the healing of yo ur surgery! 10. Get plenty of rest with your legs elevated. Drink plenty of fluids and eat a well-balanced diet. 11. Check for circulation every 2 hours during the 1st 24 hours while awake. P ress and release the end of each toe on the affected foot, the normal color will disappear, then slowly reappear. Count how many seconds it takes for the marci l color to reappear after releasing the toe. If it takes longer than 5 seconds, the circulation to the toe has been diminished, call the office immediately. 12. You may call the office at any time if you have any problems or concerns. You should call especially if you experience any of the following: -You get the bandage wet -You fall, bump or injure the surgical site -You develop fever and/ or chills -The medication does not decrease the discomfort Contact Information Gina Mark MD ~ [phone] After Hours: [facility] Access Line [phone] and ask to speak to the Nurse On-Bharath l General Surgical Discharge Instructions: ? The medication that was used will be acting in your system for the next 24 ricarda rs, so you might feel a little drowsy, with impaired judgment and/ or motor func tion. This feeling should wear off. Because the medication is still in your sy stem for the next 24 hours you SHOULD NOT: o Drive a car, operate machinery or power tools. o Drink any alcoholic beverages. o Make any important decisions or sign any legal documents. ? You should rest the remainder of the day and not engage in any physical activi ty. YOU ARE RESPONSIBLE FOR HAVING SOMEONE AT HOME WITH YOU DURING THE AFTERNOO N AND NIGHT IMMEDIATELY FOLLOWING YOUR SURGERY. Patients should cough and deep breathe every 2-4 hours while awake to avoid respiratory complications. ? Because the medications used could produce some residual nausea and vomiting a fter you go home, you should eat lightly today, starting with clear liquids (bro th, soft drinks, apple juice, jello) and toast or crackers, progressing to your normal diet as tolerated. If you get sick, wait a couple of hours and then begi n to eat. After 24 hours the nausea should be gone. If your nausea persists, c all your physician. ? You may experience some pain and your physician will advise you on what to dionte e for discomfort. This should be taken as directed. If the pain is not relieve d, contact your physician. You may also have a sore throat from the airway/ hailee athing tube that was in place. You may use lozenges, throat spray (Chloraseptic ), or warm salt water gargles for symptomatic relief. ? If you are unable to urinate within five hours after your procedure, call your physician. ? The type of surgery performed will determine how much bleeding (if any) to exp ect. Normally, some spotting might occur. If your dressing pad become saturate d, notify your physician. Elevate surgical site, if applicable, to reduce swell ing and pain. ? Preventing a surgical site infection: o Dont smoke. It is best to quit at least 30 days before surgery, but quitti ng after surgery is also helpful. o If you are a diabetic, keep your blood sugar well controlled. WASH YOUR HANDS . o Keep your wound clean and remember to wash your hands before and after contact with the area. o Call your doctor if you have signs of infection: ? increased tenderness at the surgical site ? red streaks or increased redness of the area ? bad-smelling discharge from the incision ? fever of 101 or higher TOBACCO AVOIDANCE Exposure to tobacco either from smoking or from second hand (environmental)smoke or smokeless tobacco (snuff) is damaging to your health. This information is t o encourage everyone to avoid tobacco exposure. It is recommended that you: If you smoke or use smokeless tobacco, we encourage you to quit. If you have already quit smoking, continue your good work! If you do not smoke or use smokeless tobacco, do not start. Avoid secondhand smoke. Additional Resources: You may want to contact these organizations for further information on smokin g and how to quit- [employer] - http://www.lungusa.org/stop-smoking/ [employer] - http://www.cancer.org/Healthy/StayAwayfromTobacco/i ndex [employer] - http://www.heart.org/HEARTORG/GettingHealthy/Nakul tSmoking/Quit-Smoking_[facility]_001085_SubHomePage.jsp documented in this encounter Plan of Treatment Care Team Description Date Type Specialty Gina Mark DPM [address] [place] [address] [phone] 09/13/2019 Office Visit Surgery Denise Rizo, RD [address] [place], [place] [address] 12/23/2019 Fire Alarm Inspector Visit [facility]in[facility] [address] [place] [address]. [place] [address] 12/24/2019 Office Visit Ophthalmology Date/Time Name Type Priority Associated Diag noses 09/09/2019 1:03 PM HYPOID GEAR TESTER SURGICAL PATHOLOGY EXAM LAB STAT 09/09/2019 2:57 PM HYPOID GEAR TESTER XR FOOT 3+ VW RIGHT IMAGING [facility] Type 2 dana betes mellitus with both eyes affected by mild nonproliferative retinopathy without macular edema, with long-term current use of insulin Charcot's joint of right foot Order Schedule Name Type Priority Associated Diag noses ONCE for 1 Occurrences starting 09/09/19 20 until 09/09/2019 POCT Glucose LAB Routine ONCE for 1 Occurrences starting 09/09/19 20 ASPIRATE OR ABSCESS LAB Routine CULTURE(AEROBIC/ANAEROBIC ) ONCE for 1 Occurrences starting 09/09/19 FUNGUS (ROUTINE) CULTURE LAB Routine ONCE for 1 Occurrences starting 09/09/19 SURGICAL PATHOLOGY EXAM LAB Routine Expected: 09/09/2019, Expires: 0 XR FOOT 3+ VW RIGHT IMAGING MARGE Type 2 dana betes mellitus with both eyes affected by mild nonproliferative retinopathy without macular edema, with long-term current use of insulin Charcot's joint of right foot Health Maintenance Due Date Last Done Comments [...] Procedure Name Priority Date/Time Associated Diag nosis POCT GLUCOSE (AUTOMATED) Routine 09/09/2019 11:19 AM HYPOID GEAR TESTER CONSENT/REFUSAL FOR Routine 09/09/2019 DIAGNOSIS AND TREATMENT 10:03 AM HYPOID GEAR TESTER ASSIGNMENT OF BENEFITS Routine 09/09/2019 10:02 AM HYPOID GEAR TESTER documented in this encounter Results * POCT GLUCOSE (AUTOMATED) (09/09/2019 11:19 AM HYPOID GEAR TESTER) POCT GLU 254 (H) 70 - 110 mg/dL [facility] Specimen Blood Performing Organization Address City/State/Zipcode Ph one Number [facility] CLIA: [id number], [address] [place] [address] [facility] documented in this encounter Visit Diagnoses Diagnosis Charcot's joint of right foot - Primary 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inopathy without macular edema, with long-term current u se of insulin Essential hypertension Unspecified essential hypertension Lesion of lower eyelid Obesity (BMI 30-39.9) Obesity, unspecified documented in this encounter Administered Medications Action Date Dose Rate Site Medication Order MAR Action 09/09/2019 1:23 PM HYPOID GEAR TESTER 10 mL bupivacaine (preserv free) 0.5% Given (SENSORCAINE MPF) 0.5 % (5 mg/mL) 30 mL , lidocaine 1% (PF) (XYLOCAINE) 30 mL PRN, Starting Linda 09/09/19 at 1323, Intra-op FENTanyl PF (SUBLIMAZE (PF)) injection 25 mcg 25 mcg, Slow IV Push, Q5MIN PRN, 4 doses, Starting Linda 09/09/19 at 1349, Until Discontinued, Routine, Pain (scal e 4-6), PACU ondansetron (ZOFRAN (PF)) injection 4 m g 4 mg, Slow IV Push, PRN, 1 dose, Starting Linda 09/09/19 at 1349, Until Discontinued, Routine, Nausea and Vomiting (N/V), PACU Action Date Dose Rate Site Medication Order MAR Action 09/09/2019 11:20 AM HYPOID GEAR TESTER 1,000 mL 20 mL/hr lactated ringers IV infusion 1,000 mL New Bag at 20 mL/hr, 1,000 mL, IV Infusion, ONCE, 1 dose, Linda 09/09/19 at 1130, Routine, DSU Pre-op documented in this encounter Additional Health Concerns Resolved Time Infection Noted Time Contact- MRSA 08/22/2019 6:33 PM HYPOID GEAR TESTER documented as of this encounter Insurance Type Payer Benefit Subscriber ID Effective Phone Address Plan / Dates Group Medicare MEDICARE MEDICARE xxxxxxxxxxx 2008- [phone] [address] [employer] [place] PART A & B Present [id number] [place] [phone] documented as of this encounter
--- OUTSIDE RECORDS SUMMARY | 2019-12-13 10:15 | XMS REPORT | Summary of Care ---
Author Author [facility] - Health Organization [facility] - Health Address Unknown Phone Unavailable Care Team Providers Care Injection Molding Machine Operator Name Role Phone Pcp, Patient Does Not Have A PCP [phone] Reason for Visit * Reason Comments Wound Care Encounter Details Care Team Description Date Type Department Gina Mark DPM [address] [place] [address] Diabetic ulcer of other part of right fo ot associated with diabetes mellitus due to underlying condition, limited to breakdown of skin (Primary Dx); Charcot's arthropathy associated with type 2 diabetes mellitus; Comprehensive diabetic foot examination, type 2 DM, encounter for; Diabetes mellitus type 2, insulin dependent 09/06/2019 Office Visit [facility], [place] [id number], [facility] [place] [address] Allergies No Known Allergiesdocumented as of this encounter (statuses as of 09/07/2019) Medications End Date Status Medication Sig Dispensed [...] as of this encounter (statuses as of 09/07/2019) Active Problems Problem Noted Date Obesity (BMI 30-39.9) 03/27/2018 Lesion of lower eyelid 02/17/2018 Overview: Added automatically from request for tj boles [id number] Arthritis of knee, degenerative 09/21/2013 HTN (hypertension) 03/23/2012 Diabetes mellitus 03/23/2012 documented as of this encounter (statuses as of 09/07/2019) Social History Date Tobacco Use Types Packs/Day [...] Comments Vital Sign 136/73 09/06/2019 1:15 PM CHARTER BOAT OPERATOR Blood Pressure 98 09/06/2019 1:15 PM CHARTER BOAT OPERATOR Pulse 36.4 C (97.6 F) 09/06/2019 1:15 PM CHARTER BOAT OPERATOR Temperature 28 09/06/2019 1:15 PM CHARTER BOAT OPERATOR Respiratory Rate 99% 09/06/2019 1:15 PM CHARTER BOAT OPERATOR Oxygen Saturation - - Inhaled Oxygen Concentration 130.7 kg (288 lb 3.2 oz) 09/06/2019 1:15 PM CHARTER BOAT OPERATOR Weight - - Height 37 08/23/2019 11:16 AM CHARTER BOAT OPERATOR Body Mass Index documented in this encounter Progress Notes * Gina Mark DPM - 09/06/2019 1:40 PM CHARTER BOAT OPERATOR Chief Complaint: Diabetic foot ulcer Referring Provider: José Miguel Arreola History of Present Illness: Laurie R Marroquin, is a 63 year old, male, [...] file Gets together: Not on file Attends sikhism service: Not on file Active member of [...] xam, assessment and plan. Gina Mark DPM Hand Engraver Podiatric Medicine and Surgery Department of Orthopaedic Surgery & Rehabilitation 09/06/19 4:01 PM TER BOAT OPERATOR documented in this encounter Plan of Treatment Care Team Description Date Type Specialty Denise Rizo, RD [address] [place] [address] [phone] 09/08/2019 Consumer Education Specialist Visit Endocrinology Diabe aj & Metabolism Gina Mark DPM [address] [place] [address] [phone] 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inopathy without macular edema, with long-term current use of insulin 09/09/2019 Hospital Surgery Encounter Haylie Tomas RN 09/09/2019 Anesthesia Surgery Event Gina Mark DPM [address] [place] [id number] OSTECTOMY 09/09/2019 [facility] [address] [place] [address]. [place], [place] [address] 12/24/2019 Office Visit Ophthalmology Date/Time Name Type Priority Associated Diag noses 09/06/2019 4:46 PM CHARTER BOAT OPERATOR WOUND/ASPIRATE OR ABSCESS LAB Routine Diab etic ulcer of other CULTURE part of right foot associated with diabetes mellitus due to underlying condition, limited to breakdown of skin Charcot's arthropathy associated with type 2 diabetes mellitus Comprehensive diabetic foot examination, type 2 DM, encounter for Diabetes mellitus type 2, insulin dependent 09/06/2019 4:46 PM CHARTER BOAT OPERATOR WOUND CULTURE LAB Routine Diabetic ulcer of [...] 09/06/2019 Diabetic ulcer of other 4:46 PM CHARTER BOAT OPERATOR part of right foot associated with diabetes [...] Noted Time Contact- MRSA 08/22/2019 6:33 PM CHARTER BOAT OPERATOR documented as of this encounter Insurance Type Payer Benefit Subscriber ID Effective Phone Address Plan / Dates Group Medicare MEDICARE MEDICARE xxxxxxxxxxx 2008- [phone] [address] PART A & B Present [id number] [place] [phone] documented as of this encounter
--- OUTSIDE RECORDS SUMMARY | 2019-12-13 10:15 | XMS REPORT | Summary of Care ---
Author Author [facility] - Health Organization [facility] - Health Address Unknown Phone Unavailable Care Team Providers Care Engraver Wood Name Role Phone Pcp, Patient Does Not Have A PCP [phone] Reason for Visit * Reason Comments Wound Care Encounter Details Care Team Description Date Type Department Gina Mark, MONISHA [address] [place], [place] [id number] Diabetic ulcer of other part of right fo ot associated with diabetes mellitus due to underlying condition, limited to breakdown of skin (Primary Dx); Charcot's joint of right foot; 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inopathy without macular edema, with long-term current use of insulin 09/20/2019 Office Visit [facility], [address], [facility] [place] [address] Allergies No Known Allergiesdocumented as [...] Added automatically from request for tj boles [id number] Charcot's joint of right foot 09/07/2019 Overview: Added automatically from request for tj boles [id number] Obesity (BMI 30-39.9) 03/27/2018 Lesion of lower eyelid 02/17/2018 Overview: Added automatically from request for tj boles [id number] Arthritis of knee, degenerative 09/21/2013 HTN (hypertension) [...] Comments Vital Sign 151/74 09/20/2019 9:27 AM NURSING TECHN Blood Pressure 72 09/20/2019 9:24 AM NURSING TECHN Pulse 36.6 C (97.8 F) 09/20/2019 9:24 AM NURSING TECHN Temperature 18 09/20/2019 9:24 AM NURSING TECHN Respiratory Rate 97% 09/20/2019 9:24 AM NURSING TECHN Oxygen Saturation - - Inhaled Oxygen Concentration 129.5 kg (285 lb 6.4 oz) 09/20/2019 9:24 AM NURSING TECHN Weight 188 cm (6' 2") 09/20/2019 9:24 AM NURSING TECHN Height 36.64 09/20/2019 9:24 AM NURSING TECHN Body Mass Index documented in this encounter Progress Notes * Gina Mark DPM - 09/20/2019 9:20 AM NURSING TECHN Chief Complaint: Diabetic foot ulcer Referring Provider: [...] file Gets together: Not on file Attends protestant service: Not on file Active member of [...] xam, assessment and plan. Gina Mark DPM Meter Reading Clerk Podiatric Medicine and Surgery Department of Orthopaedic Surgery & Rehabilitation 09/20/19 3:23 PM ING TECHN * Elizabeth Leigh MA - 09/20/2019 9:20 AM NURSING TECHN Laurie Marroquin is a 63 year old male is here for wound care. Wound measurements Right lateral plantar 2.5 cm length, 2.4 cm width, 0.1 cm depth Patient arrived with local dressing Wound cleansed with [employer] ING TECHN documented in this encounter Plan of Treatment Care Team Description Date Type Specialty Gina Makr DPM [address] [place], [place] [id number] 09/27/2019 Office Visit Surgery Denise Rizo, RD [address] [place], [place] [address] 12/23/2019 Telehealth Coordinator Visit Endocrinology Diabe aj & [facility] [address] [place] [address] 12/24/2019 Office Visit Ophthalmology Health Maintenance [...] Noted Time Contact- MRSA 08/22/2019 6:33 PM NURSING TECHN documented as of this encounter Insurance Type Payer Benefit Subscriber ID Effective Phone Address Plan / Dates Group Medicare MEDICARE MEDICARE xxxxxxxxxxx 2008- [phone] [address] [employer] PART A & B Present [id number] [place] [phone] documented as of this encounter
--- OUTSIDE RECORDS SUMMARY | 2019-12-13 10:15 | XMS REPORT | Summary of Care ---
Author Author [facility] - Health Organization [facility] - Health Address Unknown Phone Unavailable Care Team Providers Care Personal Care Aide Name Role Phone Pcp, Patient Does Not Have A PCP [phone] Reason for Visit * Reason Comments Wound Care Encounter Details Care Team Description Date Type Department Gina Mark, MONISHA [address] [place], [place] [id number] Diabetic ulcer of other part of right fo ot associated with diabetes mellitus due to underlying condition, limited to breakdown of skin (Primary Dx); Charcot's joint of right foot; 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inopathy without macular edema, with long-term current use of insulin 09/13/2019 Office Visit [facility], [address], [facility] [place] [address] Allergies No Known Allergiesdocumented as [...] Added automatically from request for tj boles [id number] Charcot's joint of right foot 09/07/2019 Overview: Added automatically from request for tj boles [id number] Obesity (BMI 30-39.9) 03/27/2018 Lesion of lower eyelid 02/17/2018 Overview: Added automatically from request for tj boles [id number] Arthritis of knee, degenerative 09/21/2013 HTN (hypertension) [...] Comments Vital Sign 140/72 09/13/2019 8:16 AM LIBRARY HISTORIAN pt states this i s a normal reading Blood Pressure 95 09/13/2019 8:16 AM LIBRARY HISTORIAN Pulse 36.6 C (97.9 F) 09/13/2019 8:16 AM LIBRARY HISTORIAN Temperature 23 09/13/2019 8:16 AM LIBRARY HISTORIAN Respiratory Rate 94% 09/13/2019 8:16 AM LIBRARY HISTORIAN Oxygen Saturation - - Inhaled Oxygen Concentration 128.9 kg (284 lb 3.2 oz) 09/13/2019 8:16 AM LIBRARY HISTORIAN Weight 188 cm (6' 2") 09/13/2019 8:16 AM LIBRARY HISTORIAN Height 36.49 09/13/2019 8:16 AM LIBRARY HISTORIAN Body Mass Index documented in this encounter Progress Notes * Maria E Mustafa LVN - 09/13/2019 8:20 AM LIBRARY HISTORIAN Laurie Marroquin is a 63 year old [...] Yes Wound Description: Location: right plantar Size: 2.6 cm length, 2.4 cm width, 2 cm depth Total Area: 6.24 cm/sq Shape: [...] is now a suture line surgical wound Applied moist betadine gauze to wound bed, then ABD pad, wrapped with Kerlix, an d secured with 4" DARIO. Patient tolerated wound care well, he denies any further question or concerns at this time. Patient will follow up as follows: Future Appointments Date Time Provider Department Center 09/20/2019 9:20 AM Gina Mark DPM [facility] 12/23/2019 1:[address] [facility] 12/24/2019 2:00 PM Yehuda Peres [facility] ARY HISTORIAN * Gina Mark DPM - 09/13/2019 8:20 AM LIBRARY HISTORIAN Chief Complaint: Diabetic foot ulcer Referring Provider: [...] file Gets together: Not on file Attends voodoo service: Not on file Active member of [...] xam, assessment and plan. Gina Mark DPM Metallurgical Engineer Podiatric Medicine and Surgery Department of Orthopaedic Surgery & Rehabilitation 09/13/19 9:20 AM ARY HISTORIAN * Elizabeth Leigh MA - 09/13/2019 8:20 AM LIBRARY HISTORIAN Laurie Marroquin is a 63 year old male is here for wound care. Wound measurements Right plantar 2.6 cm length, 2.4 cm width, 0.1 cm depth Patient arrived with local dressing Wound cleansed with Dakins solutions ARY HISTORIAN documented in this encounter Plan of Treatment Care Team Description Date Type Specialty Gina Mark DPM [address] [place], [place] [address]IDE [facility] [place] [address] 09/20/2019 Office Visit Surgery Denise Rizo, RD [address] [place] [address] [phone] 12/23/2019 Automobile Brakes Bonder Visit Endocrinology Diabe aj & Metabolism Yehuda Peres MD [address] [place] [address]. [place] [address] 12/24/2019 Office Visit Ophthalmology Health [...] Noted Time Contact- MRSA 08/22/2019 6:33 PM LIBRARY HISTORIAN documented as of this encounter Insurance Type Payer Benefit Subscriber ID Effective Phone Address Plan / Dates Group Medicare MEDICARE MEDICARE xxxxxxxxxxx 2008- [phone] [address] B [place] PART A & B Present [id number] [place] [phone] documented as of this encounter
--- OUTSIDE RECORDS SUMMARY | 2019-12-13 10:15 | XMS REPORT | Summary of Care ---
Author Author [facility] - Health Organization [facility] - Health Address Unknown Phone Unavailable Care Team Providers Care Director Of Institutional Sales Name Role Phone Pcp, Patient Does Not Have A PCP [phone] Encounter Details Care Team Description Date Type Department Gina Mark DPM [address] [place], [place] [id number] Charcot's joint of right foot (Primary D x); 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inopathy without macular edema, with long-term current use of insulin 09/06/2019 Prep For [facility] [address] [place] [phone] Allergies No Known Allergiesdocumented as of this [...] Added automatically from request for tj boles [id number] Arthritis of knee, degenerative 09/21/2013 HTN (hypertension) [...] Treatment Care Team Description Date Type Specialty Darrius Denise, RD [address] [place] [address] [phone] 09/08/2019 Government Relations Director [facility] Endocrinology [facility]abe [facility] [address] [place] [address]. [place] [address] 12/24/2019 Office Visit Ophthalmology Health [...] filedocumented in this encounter Visit Diagnoses Diagnosis Charcot's joint of right foot - Primary 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inopathy without macular edema, with long-term current u se of insulin documented in this encounter Additional Health Concerns Resolved Time Infection Noted Time Contact- MRSA 08/22/2019 6:33 PM TERMINAL GAUGER documented as of this encounter Insurance Type Payer Benefit Subscriber ID Effective Phone Address Plan / Dates Group Medicare MEDICARE MEDICARE xxxxxxxxxxx 2008- [phone] [address]X PART A & B Present [id number] [place] [phone] documented as of this encounter
--- OUTSIDE RECORDS SUMMARY | 2019-12-13 10:15 | XMS REPORT | Summary of Care ---
Author Author [facility] - Health Organization [facility] - Health Address Unknown Phone Unavailable Care Team Providers Care Paint Stockman Name Role Phone Pcp, Patient Does Not Have A PCP [phone] Reason for Visit * Reason Comments Wound Care Encounter Details Care Team Description Date Type Department Gina Mark DPM [address] [place], [place] [id number] Diabetic ulcer of other part of right fo ot associated with diabetes mellitus due to underlying condition, limited to breakdown of skin (Primary Dx); Charcot's arthropathy associated with type 2 diabetes mellitus; Comprehensive diabetic foot examination, type 2 DM, encounter for; Diabetes mellitus type 2, insulin dependent 09/06/2019 Office Visit [facility], [address] [place] [address] Allergies No Known Allergiesdocumented as [...] Added automatically from request for tj boles [id number] Arthritis of knee, degenerative 09/21/2013 HTN (hypertension) [...] Comments Vital Sign 136/73 09/06/2019 1:15 PM FROZEN YOGURT MAKER Blood Pressure 98 09/06/2019 1:15 PM FROZEN YOGURT MAKER Pulse 36.4 C (97.6 F) 09/06/2019 1:15 PM FROZEN YOGURT MAKER Temperature 28 09/06/2019 1:15 PM FROZEN YOGURT MAKER Respiratory Rate 99% 09/06/2019 1:15 PM FROZEN YOGURT MAKER Oxygen Saturation - - Inhaled Oxygen Concentration 130.7 kg (288 lb 3.2 oz) 09/06/2019 1:15 PM FROZEN YOGURT MAKER Weight - - Height 37 08/23/2019 11:16 AM FROZEN YOGURT MAKER Body Mass Index documented in this encounter Progress Notes * Gina Mark DPM - 09/06/2019 1:40 PM FROZEN YOGURT MAKER Chief Complaint: Diabetic foot ulcer Referring [...] xam, assessment and plan. Gina Mark DPM Deputy County Attorney Podiatric Medicine and Surgery Department of Orthopaedic Surgery & Rehabilitation 09/06/19 4:01 PM EN YOGURT MAKER documented in this encounter Plan of Treatment Care Team Description Date Type Specialty Darrius, Denise, RD [address] [place] [address] [phone] 09/08/2019 Agriculture Laborer Visit Endocrinology Diabe aj & Metabolism Yehuda Peres MD [address] [place] [address]. [place], [place] [id number] 12/24/2019 Office Visit Ophthalmology Date/Time Name Type Priority Associated Diag noses 09/06/2019 4:46 PM FROZEN YOGURT MAKER WOUND/ASPIRATE OR ABSCESS LAB Routine Diab etic ulcer of other CULTURE part of right foot associated with diabetes mellitus due to underlying condition, limited to breakdown of skin Charcot's arthropathy associated with type 2 diabetes mellitus Comprehensive diabetic foot examination, type 2 DM, encounter for Diabetes mellitus type 2, insulin dependent 09/06/2019 4:46 PM FROZEN YOGURT MAKER WOUND CULTURE LAB Routine Diabetic ulcer of [...] Noted Time Contact- MRSA 08/22/2019 6:33 PM FROZEN YOGURT MAKER documented as of this encounter Insurance Type Payer Benefit Subscriber ID Effective Phone Address Plan / Dates Group Medicare MEDICARE MEDICARE xxxxxxxxxxx 2008- [phone] P[address] B OX PART A & B Present [id number] [place] [phone] documented as of this encounter
--- OUTSIDE RECORDS SUMMARY | 2019-12-13 10:15 | XMS REPORT | Summary of Care ---
Author Author [facility] - Health Organization [facility] - Health Address Unknown Phone Unavailable Care Team Providers Care Gambling Broker Name Role Phone Pcp, Patient Does Not Have A PCP [phone] Reason for Visit * Reason Comments Wound Care Encounter Details Care Team Description Date Type Department Gina Mark, MONISHA [address] [place], [place] [id number] Diabetic ulcer of other part of right fo ot associated with diabetes mellitus due to underlying condition, limited to breakdown of skin (Primary Dx); Charcot's joint of right foot; 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inopathy without macular edema, with long-term current use of insulin 09/13/2019 Office Visit [facility], [address], [facility] [place] [address] Allergies No Known Allergiesdocumented as [...] Added automatically from request for tj boles [id number] Charcot's joint of right foot 09/07/2019 Overview: Added automatically from request for tj boles [id number] Obesity (BMI 30-39.9) 03/27/2018 Lesion of lower eyelid 02/17/2018 Overview: Added automatically from request for tj boles [id number] Arthritis of knee, degenerative 09/21/2013 HTN (hypertension) [...] Comments Vital Sign 140/72 09/13/2019 8:16 AM APPLICATION CHEMIST pt states this i s a normal reading Blood Pressure 95 09/13/2019 8:16 AM APPLICATION CHEMIST Pulse 36.6 C (97.9 F) 09/13/2019 8:16 AM APPLICATION CHEMIST Temperature 23 09/13/2019 8:16 AM APPLICATION CHEMIST Respiratory Rate 94% 09/13/2019 8:16 AM APPLICATION CHEMIST Oxygen Saturation - - Inhaled Oxygen Concentration 128.9 kg (284 lb 3.2 oz) 09/13/2019 8:16 AM APPLICATION CHEMIST Weight 188 cm (6' 2") 09/13/2019 8:16 AM APPLICATION CHEMIST Height 36.49 09/13/2019 8:16 AM APPLICATION CHEMIST Body Mass Index documented in this encounter Progress Notes * Gina Mark DPM - 09/13/2019 8:20 AM APPLICATION CHEMIST Chief Complaint: Diabetic foot ulcer Referring Provider: José Miguel Arreola History of Present Illness: Laurie Marroqiun, is a 63 year old, male, who [...] file Gets together: Not on file Attends sabianism service: Not on file Active member of [...] 0.25% (DAKIN'S SOLUTION) SOLUTION Apply to area(s) toyna y. TRIAMCINOLONE ACETONIDE 0.1 % OINTMENT Apply [...] xam, assessment and plan. Gina Mark DPM Casino Floor Person Podiatric Medicine and Surgery Department of Orthopaedic Surgery & Rehabilitation 09/13/19 9:20 AM ICATION CHEMIST * Elizabeth Leigh MA - 09/13/2019 8:20 AM APPLICATION CHEMIST Laurie Marroquin is a 63 year old male is here for wound care. Wound measurements Right plantar 2.6 cm length, 2.4 cm width, 0.1 cm depth Patient arrived with local dressing Wound cleansed with Dakins solutions ICATION CHEMIST documented in this encounter Plan of Treatment Care Team Description Date Type Specialty Gina Mark DPM [address] [place], [place] [address] [place] [address] [phone] 09/20/2019 Office Visit Surgery Darrius, Denise, RD [address] [place] [address] [phone] 12/23/2019 Sewing Trimmer [facility] [address] [place] [address]. [place] [address] [phone] 12/24/2019 Office Visit Ophthalmology Health Maintenance Due [...] Noted Time Contact- MRSA 08/22/2019 6:33 PM APPLICATION CHEMIST documented as of this encounter Insurance Type Payer Benefit Subscriber ID Effective Phone Address Plan / Dates Group Medicare MEDICARE MEDICARE xxxxxxxxxxx 2008- [phone] P. O. B OX PART A & B Present [id number] [place] [phone] documented as of this encounter
--- OUTSIDE RECORDS SUMMARY | 2019-12-13 10:16 | XMS REPORT | Summary of Care ---
Author Author [facility] - Health Organization [facility] - Health Address Unknown Phone Unavailable Care Team Providers Care Public Health Worker Name Role Phone Pcp, Patient Does Not Have A PCP [phone] Reason for Visit * Reason Comments Wound Care Encounter Details Care Team Description Date Type Department Gina Mark, MONISHA [address] [place], [place] [id number] Diabetic ulcer of other part of right fo ot associated with diabetes mellitus due to underlying condition, limited to breakdown of skin (Primary Dx); Charcot's joint of right foot; 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inopathy without macular edema, with long-term current use of insulin 10/04/2019 Office Visit [facility], [address], [facility] [place] [address] Allergies No Known Allergiesdocumented as of this encounter (statuses as of 10/04/2019) Medications End Date Status Medication Sig Dispensed [...] Lesion of lower eyelid, Obesity (BMI 30-39.9) 10/14/2019 Active clindamycin 300 mg Take 1 30 [...] as of this encounter (statuses as of 10/04/2019) Active Problems Problem Noted Date 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, with long-term current use of insulin Overview: Added automatically from request for tj boles [id number] Charcot's joint of right foot 09/07/2019 Overview: Added automatically from request for tj boles [id number] Obesity (BMI 30-39.9) 03/27/2018 Lesion of lower eyelid 02/17/2018 Overview: Added automatically from request for tj boles [id number] Arthritis of knee, degenerative 09/21/2013 HTN (hypertension) 03/23/2012 Diabetes mellitus 03/23/2012 documented as of this encounter (statuses as of 10/04/2019) Social History Date Tobacco Use Types Packs/Day [...] Signs Reading Time Taken Comments Vital Sign 122/65 10/04/2019 11:08 AM SHRIMP PEELER Blood Pressure 75 10/04/2019 11:08 AM SHRIMP PEELER Pulse 36.4 C (97.6 F) 10/04/2019 11:08 AM SHRIMP PEELER Temperature 18 10/04/2019 11:08 AM SHRIMP PEELER Respiratory Rate 98% 10/04/2019 11:08 AM SHRIMP PEELER Oxygen Saturation - - Inhaled Oxygen Concentration 130 kg (286 lb 9.6 oz) 10/04/2019 11:08 AM SHRIMP PEELER Weight 188 cm (6' 2") 10/04/2019 11:08 AM SHRIMP PEELER Height 36.8 10/04/2019 11:08 AM SHRIMP PEELER Body Mass Index documented in this encounter Progress Notes * Gina Mark DPM - 10/04/2019 10:40 AM SHRIMP PEELER Chief Complaint: Diabetic foot ulcer Referring Provider: José Miguel Arreola History of Present Illness: Laurie Marroquin, is a 63 year old, male, seen today for follow-up 2 weeks, 4 da y s/p bone resection of residual 5th metatarsal shaft for osteomyelitis, right f oot. The patient denies excessive weightbearing and relates no new pedal concern s this visit. 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 He not es his home health nurse noted purulence from his incision site. He also reports he finished his course of antibiotics. Past Medical History: Past Medical History: Diagnosis [...] file Gets together: Not on file Attends rastafarian service: Not on file Active member of [...] bruising or bleeding tendencies Physical Exam: BP 122/65 (BP Location: Right arm, Patient Position: Sitting, BP CUFF SIZE: Adul t Large) | Pulse 75 | Temp 36.4 C (97.6 F) (Oral) | Resp 18 | Ht 6' 2" ( 1.88 m) | Wt 286 lb 9.6 oz (130 kg) | SpO2 98% | BMI 36.80 kg/m Body mass index is 36.8 kg/m. General: alert, awake, oriented x 3, [...] 5th ray amputation site- plantar wound Measurements: 10/04/19: Pre-debridement: 2.6cm L x 2.6cm W x 0.2cm D- pink, granular with bi ofilm covering Post-debridement: 2.6cm L x 2.6cm W x 0.2cm D- bleeding, granular 09/27/19: Pre-debridement: 2.5cm L x 2.6cm W [...] 2 50.50 Z79.4 362.04 V58.67 Pt is 3 weeks, 4 days s/p right foot resection of residual 5th met head - DOS - doing very well Plan: Patient evaluated and examined Condition and treatment plan discussed in detail with patient PROCEDURE NOTE: Type of Debridement: Excisional Level of Debridement: Wound debrided down to and including subcutaneous tissue l evel and muscle Tissue type removed: Biofilm Instrument: Scapel/Blade: Yes Curette:Yes Forceps: No Scissors: No Santyl applied to wound bed, then bandaged- patient to continue daily Wound culture obtained today, will follow-up results and await culture and se nsitivity report in order to better optimize antibiotic therapy. Home health orders updated Refill Rx: Clindamycin 300 mg TID x 10 days Recommend elevating feet and wearing compression hose to alleviate swelling Pt to report to ED for any local or systemic signs of infection, discussed in detail with him today RTC in 1 week Scribe's Attestation IRodríguez , am scribing for, and in the presence of, Gina nielsen DPM who performed the services described here-in. Rodríguez Rodriguez, October 04, 2019, 11:38 AM Physician's Attestation IGina DPM, personally performed and/or ordered the services [...] xam, assessment and plan. Gina Mark DPM Housekeeping And Laundry Team Leader Podiatric Medicine and Surgery Department of Orthopaedic Surgery & Rehabilitation 10/04/19 4:19 PM MP PEELER * Elizabeth Leigh MA - 10/04/2019 10:40 AM SHRIMP PEELER Laurie Marroquin is a 63 year old male is here for wound care. Wound measurements Right lateral plantar 3.1 cm length, 2.9 cm width, 0.2 cm depth Patient arrived with local dressing Wound cleansed with Dakins solutions MP PEELER documented in this encounter Plan of Treatment Care Team Description Date Type Specialty Gina Mark DPM [address] [place] [address] [phone] 10/11/2019 Office Visit Surgery DarriusDenise, RD [address] [place] [address] [phone] 12/23/2019 Glue Bone Crusher Visit Endocrinology [facility]abe [facility] [address] [place] [address]. [place], [place] [phone] 12/24/2019 Office Visit Ophthalmology Date/Time Name Type Priority Associated Diag noses 10/04/2019 4:25 PM SHRIMP PEELER WOUND/ASPIRATE OR ABSCESS LAB Routine Diab etic ulcer of other CULTURE part of right foot associated with diabetes mellitus due to underlying condition, limited to breakdown of skin Charcot's joint of right foot 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inopathy without macular edema, with long-term current use of insulin 10/04/2019 4:25 PM SHRIMP PEELER WOUND CULTURE LAB Routine Diabetic ulcer of other part of right foot associated with diabetes mellitus due to underlying condition, limited to breakdown of skin Charcot's joint of right foot 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inopathy without macular edema, with long-term current use of insulin Order Schedule Name Type Priority Associated Diag noses Expected: 10/04/2019, Expires: 1 WOUND/ASPIRATE OR ABSCESS LAB Routine Diab etic ulcer of other CULTURE part of right foot associated with diabetes mellitus due to underlying condition, limited to breakdown of skin Charcot's joint of right foot 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inopathy without macular edema, with long-term current use of insulin Health Maintenance Due Date Last Done Comments [...] Noted Time Contact- MRSA 08/22/2019 6:33 PM SHRIMP PEELER documented as of this encounter Insurance Type Payer Benefit Subscriber ID Effective Phone Address Plan / Dates Group Medicare MEDICARE MEDICARE xxxxxxxxxxx 2008- [phone] P[address] B OX PART A & B Present [id number] [place] [phone] documented as of this encounter
--- OUTSIDE RECORDS SUMMARY | 2019-12-13 10:16 | XMS REPORT | Summary of Care ---
Author Author [facility] - Health Organization [facility] - Health Address Unknown Phone Unavailable Care Team Providers Care Sheet Metal Shop Foreman Name Role Phone Pcp, Patient Does Not Have A PCP [phone] Reason for Visit * Reason Comments Wound Care Encounter Details Care Team Description Date Type Department Gina Mark, MONISHA [address] [place] [address] [phone] Diabetic ulcer of other part of right fo ot associated with diabetes mellitus due to underlying condition, limited to breakdown of skin (Primary Dx); Pain due to onychomycosis of toenail of left foot; Charcot's joint of right foot; 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inopathy without macular edema, with long-term current use of insulin 10/11/2019 Office Visit [facility] Wound C are [facility], [address] [place] [address] Allergies No Known Allergiesdocumented as of this encounter (statuses as of 10/11/2019) Medications End Date Status Medication Sig Dispensed [...] edema, with long-term current use of insulin Active levoFLOXacin (LEVAQUIN) Take 1 tablet 28 tablet 0 500 mg tabletIndications: by mouth 0 Diabetic ulcer of other every 24 part of right foot (twenty-four) associated with diabetes hours. mellitus due to underlying condition, limited to breakdown of skin, Charcot's joint of right foot, 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inopathy without macular edema, with long-term current use of insulin documented as of this encounter (statuses as of 10/11/2019) Active Problems Problem Noted Date 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, with long-term current use of insulin Overview: Added automatically from request for tj boles [id number] Charcot's joint of right foot 09/07/2019 Overview: Added automatically from request for tj boles [id number] Obesity (BMI 30-39.9) 03/27/2018 Lesion of lower eyelid 02/17/2018 Overview: Added automatically from request for tj boles [id number] Arthritis of knee, degenerative 09/21/2013 HTN (hypertension) 03/23/2012 Diabetes mellitus 03/23/2012 documented as of this encounter (statuses as of 10/11/2019) Social History Date Tobacco Use Types Packs/Day [...] Signs Reading Time Taken Comments Vital Sign 133/63 10/11/2019 9:47 AM [employer] D[employer] AX CONSULTANT Blood Pressure 78 10/11/2019 9:47 AM [employer] D[employer] AX CONSULTANT Pulse 36.8 C (98.2 F) 10/11/2019 9:47 AM [employer] D[employer] AX CONSULTANT Temperature 20 10/11/2019 9:47 AM [employer] D[employer] AX CONSULTANT Respiratory Rate 98% 10/11/2019 9:47 AM [employer] D[employer] AX CONSULTANT Oxygen Saturation - - Inhaled Oxygen Concentration 127.2 kg (280 lb 6.4 oz) 10/11/2019 9:47 AM [employer] D[employer] AX CONSULTANT Weight - - Height 36 10/04/2019 11:08 AM [employer] AX CONSULTANT Body Mass Index documented in this encounter Progress Notes * Gina Mark DPM - 10/11/2019 9:00 AM [employer] CONSULTANT Chief Complaint: Diabetic foot ulcer Referring [...] reports he finished his course of antibiotics. 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 He st ates that home health only came out one time the past week on , and used dish soap to cleanse his wound. The patient says he has had pain in his foot, b ut denies any nausea, vomiting, fever, or chills. He would like his nails trimme d this visit. The patient says he has not yet picked up his new antibiotics, but will pick them up tomorrow. He relates no other pedal concerns. Past Medical History: Past Medical [...] file Gets together: Not on file Attends uatsdin service: Not on file Active member of [...] bruising or bleeding tendencies Physical Exam: BP 133/63 (BP Location: Right arm, Patient Position: Sitting, BP CUFF SIZE: Adul t Large) | Pulse 78 | Temp 36.8 C (98.2 F) (Oral) | Resp 20 | Wt 280 lb 6.4 oz (127.2 kg) | SpO2 98% | BMI 36.00 kg/m Body mass index is 36 kg/m. General: alert, awake, oriented x 3, appearing age appropriate, no apparent dist ress. Skin: skin color, texture, and turgor are normal. 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 Area flushed with saline, then packed with 1/4" iodoform strips and santiago ssed with betadine wet to dry. PROCEDURE NOTE: Blood blister to left hallux drained in clinic PROCEDURE NOTE: Nails sharply debrided in length and thickness x 5 to left f oot without incident Home health orders updated Advised patient to begin Levaquin 500 mg Q24H x 28 days Recommend elevating feet and wearing compression hose to alleviate swelling Pt to report to ED for any local or systemic signs of infection, discussed in detail with him today RTC in 1 week Scribe's Attestation Rodríguez Rivera , am scribing for, and in the presence of, Gina nielsen DPM who performed the services described here-in. Rodríguez Rodriguez, October 11, 2019, 10:00 AM Physician's Attestation Gina Rivera DPM, personally [...] xam, assessment and plan. Gina Mark DPM Photoresist Printer Podiatric Medicine and Surgery Department of Orthopaedic Surgery & Rehabilitation 10/11/19 3:51 PM [employer] AX CONSULTANT * Mary Alex MA - 10/11/2019 9:00 AM [employer] CONSULTANT Laurie Marroquin is a 63 year old male is here for wound care. Wound measurements Right foot plantar 2.5 cm length, 2.5 cm width, 0.4 cm depth Patient arrived with local dressing and wrap Wound cleansed with Dakins solutions [employer] CONSULTANT documented in this encounter Plan of Treatment Care Team Description Date Type Specialty Gina Mark DPM [address] [place], [place] [address] [place], [place] [address] 10/18/2019 Office Visit Surgery Denise Rizo, RD [address] [place], [place] [address] 12/23/2019 Home Health Travel Ot Visit Endocrinology Diabe aj & Metabolism Yehuda Peres MD [address] [place] [address]. [place] [address] [phone] 12/24/2019 Office Visit Ophthalmology Health Maintenance Due [...] limited to breakdown of skin - Primary Pain due to onychomycosis of toenail of left foot Charcot's joint of right foot 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inopathy without macular edema, with long-term current u se of insulin documented in this encounter Additional Health Concerns Resolved Time Infection Noted Time Contact- MRSA 08/22/2019 6:33 PM [employer] CONSULTANT documented as of this encounter Insurance Type Payer Benefit Subscriber ID Effective Phone Address Plan / Dates Group Medicare MEDICARE MEDICARE xxxxxxxxxxx 2008- [phone] [address] PART A & B Present [id number] [place] [phone] documented as of this encounter
--- OUTSIDE RECORDS SUMMARY | 2019-12-13 10:16 | XMS REPORT | Summary of Care ---
Author Author [facility] - Health Organization [facility] - Health Address Unknown Phone Unavailable Care Team Providers Care Supervisor Cleaning And Annealing Name Role Phone Pcp, Patient Does Not Have A PCP [phone] Reason for Visit * Reason Comments Wound Care Encounter Details Care Team Description Date Type Department Gina Mark, MONISHA [address] [place], [place] [id number] Diabetic ulcer of other part of right fo ot associated with diabetes mellitus due to underlying condition, limited to breakdown of skin (Primary Dx); Charcot's joint of right foot; 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inopathy without macular edema, with long-term current use of insulin 10/04/2019 Office Visit [facility] Wound C are Clinic, [address], [facility] [place] [address] Allergies No Known Allergiesdocumented as of this encounter (statuses as of 10/08/2019) Medications End Date Status Medication Sig Dispensed [...] as of this encounter (statuses as of 10/08/2019) Active Problems Problem Noted Date 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, with long-term current use of insulin Overview: Added automatically from request for tj boles [id number] Charcot's joint of right foot 09/07/2019 Overview: Added automatically from request for tj boles [id number] Obesity (BMI 30-39.9) 03/27/2018 Lesion of lower eyelid 02/17/2018 Overview: Added automatically from request for tj boles [id number] Arthritis of knee, degenerative 09/21/2013 HTN (hypertension) 03/23/2012 Diabetes mellitus 03/23/2012 documented as of this encounter (statuses as of 10/08/2019) Social History Date Tobacco Use Types Packs/Day [...] Comments Vital Sign 122/65 10/04/2019 11:08 AM WASTE MACHINE OFFBEARER Blood Pressure 75 10/04/2019 11:08 AM WASTE MACHINE OFFBEARER Pulse 36.4 C (97.6 F) 10/04/2019 11:08 AM WASTE MACHINE OFFBEARER Temperature 18 10/04/2019 11:08 AM WASTE MACHINE OFFBEARER Respiratory Rate 98% 10/04/2019 11:08 AM WASTE MACHINE OFFBEARER Oxygen Saturation - - Inhaled Oxygen Concentration 130 kg (286 lb 9.6 oz) 10/04/2019 11:08 AM WASTE MACHINE OFFBEARER Weight 188 cm (6' 2") 10/04/2019 11:08 AM WASTE MACHINE OFFBEARER Height 36.8 10/04/2019 11:08 AM WASTE MACHINE OFFBEARER Body Mass Index documented in this encounter Progress Notes * Maria E Mustafa LVN - 10/04/2019 10:40 AM WASTE MACHINE OFFBEARER Laurie Marroquin is a 63 year old male presents to the clinic per ambulation wit h a cane for wound care evaluation of right foot with . Patient report s 12/18 pain level, fall risk assessed, allergies reviewed, and pharmacy reviewed . Wound#1 Wound etiology: diabetic or neurotrophic Anatomic location: Foot right Age of wound: chronic > 1 month Photos Taken Yes Vitals Taken Yes Reviewed allergies Yes Reviewed medications Yes Wound Description: Location: right plantar Size: 2.6 cm length, 2.6 cm width, 0.2 cm depth Total Area: 6.76 cm/sq Shape: oval Type of wound: partial [...] is now a suture line surgical wound Melissa Ag 4.34 sq/in (cut to size) applied to right plantar,foot wrapped with Ke rlix, and secured with 4" heron bandage. [facility] wound care orders were si gned by and will be sent to [facility] tomorrow. Patient t olerated wound care well, he denies any further question or concerns at this laura e. Patient will follow up as noted below. Future Appointments Date Time Provider Department Center 10/11/2019 9:00 AM Gina Mark DPM [facility] SURGERY 12/23/2019 1:[address] [facility] 12/24/2019 2:00 PM Yehuda Peres MD [facility] E MACHINE OFFBEARER * Gina Mark DPM - 10/04/2019 10:40 AM WASTE MACHINE OFFBEARER Chief Complaint: Diabetic foot ulcer Referring Provider: [...] file Gets together: Not on file Attends synagogue service: Not on file Active member of [...] with him today RTC in 1 week Siennaibrocio's Attestation Rodríguez Rivera , am scribing for, and in the presence of, Gina nielsen DPM who performed the services described here-in. Rodríguez Rodriguez, October 04, 2019, 11:38 AM Physician's Attestation Gina Rivera DPM, personally [...] xam, assessment and plan. Gina Mark DPM Dental Instrument Maker Podiatric Medicine and Surgery Department of Orthopaedic Surgery & Rehabilitation 10/04/19 4:19 PM E MACHINE OFFBEARER * Elizabeth Leigh MA - 10/04/2019 10:40 AM WASTE MACHINE OFFBEARER Laurie Marroquin is a 63 year old male is here for wound care. Wound measurements Right lateral plantar 3.1 cm length, 2.9 cm width, 0.2 cm depth Patient arrived with local dressing Wound cleansed with Dakins solutions E MACHINE OFFBEARER documented in this encounter Plan of Treatment Care Team Description Date Type Specialty Gina Mark DPM [address] [place], [place] [address] 10/11/2019 Office Visit Surgery Darrius Denise, RD [address] [place], [place] [id number] 12/23/2019 Occ Therapy Asst [facility] [address] [place] [address]. [place] [address] 12/24/2019 Office Visit Ophthalmology Health [...] Date/Time Associated Diag nosis WOUND CULTURE Routine 10/04/2019 Diabetic ulcer of other 4:25 PM WASTE MACHINE OFFBEARER part of right foot associated with diabetes mellitus due to underlying condition, limited to breakdown of skin Charcot's joint of right foot 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inopathy without macular edema, with long-term current use of insulin WOUND/ASPIRATE OR ABSCESS Routine 10/04/2019 Diab etic ulcer of other CULTURE 4:25 PM WASTE MACHINE OFFBEARER part of right foot associated with diabetes mellitus due to underlying condition, limited to breakdown of skin Charcot's joint of right foot 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inopathy without macular edema, with long-term current use of insulin documented in this encounter Results * WOUND CULTURE (10/04/2019 4:25 PM WASTE MACHINE OFFBEARER) Wound Culture 2+ Mixed organisms - suggests [facility] endogenous microbial SERVICES contamination Wound Culture 1+ Klebsiella (Enterobacter) [facility] aerogenes SERVICES Gram stain No Organisms seen [facility] SERVICES Gram stain Few PMNs or Mononuclear cells [facility] observed SERVICES Specimen Swab - FOOT, RIGHT Antibiotic Method Susceptibility Organism Cefazolin SUSCEPTIBILITY TESTING Resistant Klebsiella (Enterobacter) aerogenes Cefotaxime SUSCEPTIBILITY TESTING <=1: Susceptible Klebsiella (Enterobacter) aerogenes Ciprofloxacin SUSCEPTIBILITY TESTING <=0.25: Susceptible Klebsiella (Enterobacter) aerogenes Ertapenem SUSCEPTIBILITY TESTING <=0.5: Susceptible Klebsiella (Enterobacter) aerogenes Gentamicin SUSCEPTIBILITY TESTING <=1: Susceptible Klebsiella (Enterobacter) aerogenes Levofloxacin SUSCEPTIBILITY TESTING <=0.12: Susceptible Klebsiella (Enterobacter) aerogenes Piperacillin/Tazobactam SUSCEPTIBILITY TESTING <=4: Susceptible Klebsiella (Enterobacter) aerogenes Trimethoprim/Sulfamethoxazole SUSCEPTIBILITY TESTING <=20: Susceptible Klebsiella (Enterobacter) aerogenes Performing Organization Address City/State/Zipcode Ph one Number [facility] CLIA: [id number], [address] [place] [id number] [facility] documented in this encounter Visit Diagnoses Diagnosis [...] Noted Time Contact- MRSA 08/22/2019 6:33 PM WASTE MACHINE OFFBEARER documented as of this encounter Insurance Type Payer Benefit Subscriber ID Effective Phone Address Plan / Dates Group Medicare MEDICARE MEDICARE xxxxxxxxxxx 2008- [phone] [address] PART A & B Present [id number] [place] [phone] documented as of this encounter
--- OUTSIDE RECORDS SUMMARY | 2019-12-13 10:16 | XMS REPORT | Summary of Care ---
Author Author [facility] - Health Organization [facility] - Health Address Unknown Phone Unavailable Care Team Providers Care Sub Assembly Team Worker Name Role Phone Pcp, Patient Does Not Have A PCP [phone] Reason for Visit * Reason Comments Wound Care Encounter Details Care Team Description Date Type Department Gina Mark, MONISHA [address] [place] [address] [phone] Diabetic ulcer of other part of right fo ot associated with diabetes mellitus due to underlying condition, limited to breakdown of skin (Primary Dx); Pain due to onychomycosis of toenail of left foot; Charcot's joint of right foot; 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inopathy without macular edema, with long-term current use of insulin 10/11/2019 Office Visit [facility] Wound C are [facility], [address] [place] [address] Allergies No Known Allergiesdocumented as [...] Added automatically from request for tj boles [id number] Charcot's joint of right foot 09/07/2019 Overview: Added automatically from request for tj boles [id number] Obesity (BMI 30-39.9) 03/27/2018 Lesion of lower eyelid 02/17/2018 Overview: Added automatically from request for tj boles [id number] Arthritis of knee, degenerative 09/21/2013 HTN (hypertension) [...] Comments Vital Sign 133/63 10/11/2019 9:47 AM ADMITTING COORDINATOR Blood Pressure 78 10/11/2019 9:47 AM ADMITTING COORDINATOR Pulse 36.8 C (98.2 F) 10/11/2019 9:47 AM ADMITTING COORDINATOR Temperature 20 10/11/2019 9:47 AM ADMITTING COORDINATOR Respiratory Rate 98% 10/11/2019 9:47 AM ADMITTING COORDINATOR Oxygen Saturation - - Inhaled Oxygen Concentration 127.2 kg (280 lb 6.4 oz) 10/11/2019 9:47 AM ADMITTING COORDINATOR Weight - - Height 36 10/04/2019 11:08 AM ADMITTING COORDINATOR Body Mass Index documented in this encounter Progress Notes * Gina Mark DPM - 10/11/2019 9:00 AM ADMITTING COORDINATOR Chief Complaint: Diabetic foot ulcer Referring Provider: [...] file Gets together: Not on file Attends gnosticist service: Not on file Active member of [...] with him today RTC in 1 week Of note, this patient has made several inappropriate advances to the nursing sta ff in some form with each of his clinic appointments. It is now at the point wh ere nurses feel uncomfortable performing wound care/dressing changes. Today he asked my female resident how old she was. He has also asked my scribe and mysel f the same question. This morning when he was not allowed to enter the clinic pr ior to the clinic's opening hours, he threatened to "whip it out" and urinate al l over the front door to the clinic. He said this to our nurse and our front jessica k PSS. Scribe's Attestation Rodríguez Rivera , am scribing [...] xam, assessment and plan. Gina Mark DPM Vacation Sales Advisor Podiatric Medicine and Surgery Department of Orthopaedic Surgery & Rehabilitation 10/11/19 3:51 PM TTING COORDINATOR * Mary Alex MA - 10/11/2019 9:00 AM ADMITTING COORDINATOR Laurie Marroquin is a 63 year old male is here for wound care. Wound measurements Right foot plantar 2.5 cm length, 2.5 cm width, 0.4 cm depth Patient arrived with local dressing and wrap Wound cleansed with Dakins solutions TTING COORDINATOR documented in this encounter Plan of Treatment Care Team Description Date Type Specialty Gina Mark, [address] [facility] [address] [phone] 10/18/2019 Office Visit Surgery Darrius Denise, RD [address] [place] [address] [phone] 12/23/2019 Cloud Consultant Visit [facility]ocrinology [facility]abe [facility] [address] [place] [phone] 12/24/2019 Office Visit Ophthalmology Health Maintenance Due [...] Noted Time Contact- MRSA 08/22/2019 6:33 PM ADMITTING COORDINATOR documented as of this encounter Insurance Type Payer Benefit Subscriber ID Effective Phone Address Plan / Dates Group Medicare MEDICARE MEDICARE xxxxxxxxxxx 2008- [phone] [address] B [address] PART A & B Present [id number] [place] [id number] documented as of this encounter
--- OUTSIDE RECORDS SUMMARY | 2019-12-13 10:16 | XMS REPORT | Summary of Care ---
Author Author [facility] - Health Organization [facility] - Health Address Unknown Phone Unavailable Care Team Providers Care Business Planning Analyst Name Role Phone Pcp, Patient Does Not Have A PCP [phone] Reason for Visit * Reason Comments Wound Care Encounter Details Care Team Description Date Type Department Gina Mark, MONISHA [address] [place], [place] [id number] Diabetic ulcer of other part of right fo ot associated with diabetes mellitus due to underlying condition, limited to breakdown of skin (Primary Dx); Charcot's joint of right foot; 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inopathy without macular edema, with long-term current use of insulin 10/04/2019 Office Visit [facility], [address], [facility] [place] [address] Allergies No Known Allergiesdocumented as [...] Added automatically from request for tj boles [id number] Charcot's joint of right foot 09/07/2019 Overview: Added automatically from request for tj boles [id number] Obesity (BMI 30-39.9) 03/27/2018 Lesion of lower eyelid 02/17/2018 Overview: Added automatically from request for tj boles [id number] Arthritis of knee, degenerative 09/21/2013 HTN (hypertension) [...] Comments Vital Sign 122/65 10/04/2019 11:08 AM WEBMETHODS CONSULTANT Blood Pressure 75 10/04/2019 11:08 AM WEBMETHODS CONSULTANT Pulse 36.4 C (97.6 F) 10/04/2019 11:08 AM WEBMETHODS CONSULTANT Temperature 18 10/04/2019 11:08 AM WEBMETHODS CONSULTANT Respiratory Rate 98% 10/04/2019 11:08 AM WEBMETHODS CONSULTANT Oxygen Saturation - - Inhaled Oxygen Concentration 130 kg (286 lb 9.6 oz) 10/04/2019 11:08 AM WEBMETHODS CONSULTANT Weight 188 cm (6' 2") 10/04/2019 11:08 AM WEBMETHODS CONSULTANT Height 36.8 10/04/2019 11:08 AM WEBMETHODS CONSULTANT Body Mass Index documented in this encounter Progress Notes * Maria E Mustafa LVN - 10/04/2019 10:40 AM WEBMETHODS CONSULTANT Laurie Marroquin is a 63 year [...] rlix, and secured with 4" heron bandage. [facility] wound care orders were si gned by and will be sent to [facility] tomorrow. Patient t olerated wound care well, he denies any further question or concerns at this laura e. Patient will follow up as noted below. Future Appointments Date Time Provider Department Center 10/11/2019 9:00 AM Gina Mark DPM DICSUR SURGERY 12/23/2019 1:[address] VTCUDC [facility] 12/24/2019 2:00 PM Yehuda Peres MD FRIOPE Fri [facility] ETHODS CONSULTANT * Gina Mark DPM - 10/04/2019 10:40 AM WEBMETHODS CONSULTANT Chief Complaint: Diabetic foot ulcer Referring [...] file Gets together: Not on file Attends yazdanism service: Not on file Active member of [...] xam, assessment and plan. Gina Mark DPM Assistant Professor Of Chemistry Podiatric Medicine and Surgery Department of Orthopaedic Surgery & Rehabilitation 10/04/19 4:19 PM Elizabeth Hernandez MA - 10/04/2019 10:40 AM WEBMETHODS CONSULTANT Laurie Marroquin is a 63 year old male is here for wound care. Wound measurements Right lateral plantar 3.1 cm length, 2.9 cm width, 0.2 cm depth Patient arrived with local dressing Wound cleansed with Dakins solutions ETHODS CONSULTANT documented in this encounter Plan of Treatment Care Team Description Date Type Specialty Gina Mark, MONISHA [address] [place] [address] [phone] 10/11/2019 Office Visit Surgery Denise Rizo, RD [address] [place] [address] [phone] 12/23/2019 Fashion Marketer Visit [facility]ocrinology [facility] [address] [place] [address]. [place] [address] 12/24/2019 Office Visit Ophthalmology Health [...] 10/04/2019 Diabetic ulcer of other 4:25 PM WEBMETHODS CONSULTANT part of right foot associated with diabetes mellitus due to underlying condition, limited to breakdown of skin Charcot's joint of right foot 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inopathy without macular edema, with long-term current use of insulin WOUND/ASPIRATE OR ABSCESS Routine 10/04/2019 Diab etic ulcer of other CULTURE 4:25 PM WEBMETHODS CONSULTANT part of right foot associated with diabetes mellitus due to underlying condition, limited to breakdown of skin Charcot's joint of right foot 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inopathy without macular edema, with long-term current use of insulin documented in this encounter Results * WOUND CULTURE (10/04/2019 4:25 PM WEBMETHODS CONSULTANT) Wound Culture 2+ Mixed organisms - suggests [facility] endogenous microbial SERVICES contamination Wound Culture 1+ Klebsiella (Enterobacter) [facility] aerogenes SERVICES Gram stain No Organisms seen [facility] SERVICES Gram stain Few PMNs or Mononuclear cells [facility] observed SERVICES Specimen Swab - FOOT, [...] Organization Address City/State/Zipcode Ph one Number [facility] CLIA: [id number], [address] [place] [address] [facility] documented in this encounter Visit Diagnoses Diagnosis [...] Noted Time Contact- MRSA 08/22/2019 6:33 PM WEBMETHODS CONSULTANT documented as of this encounter Insurance Type Payer Benefit Subscriber ID Effective Phone Address Plan / Dates Group Medicare MEDICARE MEDICARE xxxxxxxxxxx 2008- [phone] [place] [place] PART A & B Present [id number] [place] [id number] documented as of this encounter
--- OUTSIDE RECORDS SUMMARY | 2019-12-13 10:16 | XMS REPORT | Summary of Care ---
Author Author [facility] - Health Organization [facility] - Health Address Unknown Phone Unavailable Care Team Providers Care Chart Picker Name Role Phone Pcp, Patient Does Not Have A PCP [phone] Reason for Visit * Reason Comments Wound Care Encounter Details Care Team Description Date Type Department Gina Mark, MONISHA [address] [place], [place] [id number] Diabetic ulcer of other part of right fo ot associated with diabetes mellitus due to underlying condition, limited to breakdown of skin (Primary Dx); Charcot's joint of right foot; 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inopathy without macular edema, with long-term current use of insulin 10/04/2019 Office Visit [facility] Clinic, [address], [facility] [address] Allergies No Known Allergiesdocumented as [...] Added automatically from request for tj boles [id number] Charcot's joint of right foot 09/07/2019 Overview: Added automatically from request for tj boles [id number] Obesity (BMI 30-39.9) 03/27/2018 Lesion of lower eyelid 02/17/2018 Overview: Added automatically from request for tj boles [id number] Arthritis of knee, degenerative 09/21/2013 HTN (hypertension) [...] Comments Vital Sign 122/65 10/04/2019 11:08 AM BOILER PLANT WORKER Blood Pressure 75 10/04/2019 11:08 AM BOILER PLANT WORKER Pulse 36.4 C (97.6 F) 10/04/2019 11:08 AM BOILER PLANT WORKER Temperature 18 10/04/2019 11:08 AM BOILER PLANT WORKER Respiratory Rate 98% 10/04/2019 11:08 AM BOILER PLANT WORKER Oxygen Saturation - - Inhaled Oxygen Concentration 130 kg (286 lb 9.6 oz) 10/04/2019 11:08 AM BOILER PLANT WORKER Weight 188 cm (6' 2") 10/04/2019 11:08 AM BOILER PLANT WORKER Height 36.8 10/04/2019 11:08 AM BOILER PLANT WORKER Body Mass Index documented in this encounter Progress Notes * Gina Mark DPM - 10/04/2019 10:40 AM BOILER PLANT WORKER Chief Complaint: Diabetic foot ulcer Referring Provider: [...] file Gets together: Not on file Attends taoism service: Not on file Active member of [...] xam, assessment and plan. Gina Mark DPM Cue Worker Podiatric Medicine and Surgery Department of Orthopaedic Surgery & Rehabilitation 10/04/19 4:19 PM ER PLANT WORKER * Elizabeth Leigh MA - 10/04/2019 10:40 AM BOILER PLANT WORKER Laurie Marroquin is a 63 year old male is here for wound care. Wound measurements Right lateral plantar 3.1 cm length, 2.9 cm width, 0.2 cm depth Patient arrived with local dressing Wound cleansed with Dakins solutions ER PLANT WORKER documented in this encounter Plan of Treatment Care Team Description Date Type Specialty Gina Mark DPM [address] [place] [address] [phone] 10/11/2019 Office Visit Surgery DarriusDenise lane, RD [address] [place] [address] [phone] 12/23/2019 Alfalfa Dehydrator Operator Visit Endocrinology Diabe aj & [facility] [address] [place] [address] 12/24/2019 Office Visit Ophthalmology Order Schedule Name Type Priority Associated Diag [...] Noted Time Contact- MRSA 08/22/2019 6:33 PM BOILER PLANT WORKER documented as of this encounter Insurance Type Payer Benefit Subscriber ID Effective Phone Address Plan / Dates Group Medicare MEDICARE MEDICARE xxxxxxxxxxx 2008- [phone] [address] PART A & B Present [id number] [place] [id number] documented as of this encounter
--- OUTSIDE RECORDS SUMMARY | 2019-12-13 10:16 | XMS REPORT | Summary of Care ---
Author Author [facility] - Health Organization [facility] - Health Address Unknown Phone Unavailable Care Team Providers Care Cycle Consultant Name Role Phone Pcp, Patient Does Not Have A PCP [phone] Reason for Visit * Reason Comments Wound Care Encounter Details Care Team Description Date Type Department Gina Mark, MONISHA [address] [place], [place] [id number] Diabetic ulcer of other part of right fo ot associated with diabetes mellitus due to underlying condition, limited to breakdown of skin (Primary Dx); Charcot's joint of right foot; 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inopathy without macular edema, with long-term current use of insulin 10/18/2019 Office Visit [facility] W[facility], [address], [facility] [place] [address] Allergies No Known Allergiesdocumented as of this encounter (statuses as of 10/19/2019) Medications End Date Status Medication Sig Dispensed [...] Lesion of lower eyelid, Obesity (BMI 30-39.9) Active levoFLOXacin (LEVAQUIN) Take 1 tablet 28 [...] as of this encounter (statuses as of 10/19/2019) Active Problems Problem Noted Date 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, with long-term current use of insulin Overview: Added automatically from request for tj boles [id number] Charcot's joint of right foot 09/07/2019 Overview: Added automatically from request for tj boles [id number] Obesity (BMI 30-39.9) 03/27/2018 Lesion of lower eyelid 02/17/2018 Overview: Added automatically from request for tj boles [id number] Arthritis of knee, degenerative 09/21/2013 HTN (hypertension) 03/23/2012 Diabetes mellitus 03/23/2012 documented as of this encounter (statuses as of 10/19/2019) Social History Date Tobacco Use Types Packs/Day [...] Signs Reading Time Taken Comments Vital Sign 105/58 10/18/2019 9:08 AM CDT Blood Pressure 86 10/18/2019 9:06 AM CDT Pulse 36.3 C (97.4 F) 10/18/2019 9:06 AM CDT Temperature 18 10/18/2019 9:06 AM CDT Respiratory Rate 95% 10/18/2019 9:06 AM CDT Oxygen Saturation - - Inhaled Oxygen Concentration 124.7 kg (275 lb) 10/18/2019 9:06 AM CDT Weight - - Height 35.31 10/04/2019 11:08 AM HOME HEALTH NURSE Body Mass Index documented in this encounter Progress Notes * Kirti Miller RN - 10/18/2019 9:00 AM CDT Laurie Marroquin is a 63 year old male presents to the clinic per ambulation wit h a cane for wound care evaluation of right foot with . Patient report s 03/20 pain level and MD informed in person, fall risk assessed, allergies revie wed, and pharmacy reviewed. Wound#1 Wound etiology: diabetic or neurotrophic Anatomic location: Foot right Age of wound: chronic > 1 month Photos Taken Yes Vitals Taken Yes Reviewed allergies Yes Reviewed medications Yes Wound Description: Location: right plantar Size: 2.1 cm length, 2.2 cm width, 0.6 cm depth Total Area: 4.62 cm/sq Shape: oval Type of wound: partial thickness wound Exudate: amount moderate, color serosanguinous, consistency watery Pitting Edema : no Sepsis: none Surrounding skin: intact Maceration: not present Edges: not attached Epithelialization: not present Tissue Bed: granulation tissue present 25% Necrotic Tissue: present. Type: slough yellow . Percentage of wound: 25% Tenderness or pain: no pain Dressing upon arrival:local dressing Dressing removed and Wound washed with 0.25% Dakins Devitalized Tissue Removed yes by . Wound #2 Wound etiology: diabetic or neurotrophic Anatomic location: Foot right Age of wound: chronic > 1 month Photos Taken Yes Vitals Taken Yes Reviewed allergies Yes Reviewed medications Yes Wound Description: Location: right lateral foot patient had surgery 09/09/19, noted linear closure with [address] Note d small dehiscence in mid suture line. Size:0.3 cm length,0.4 cm width, 1.8 cm depth Total Area: 0.12 cm/sq Shape: oval Type of wound: full thickness wound Exudate: amount excessive, color serosanguinous, consistency purulent Pitting Edema : yes - 2+ Sepsis: odor detected Surrounding skin: edematous, erythematous and intact Maceration: present, location: lana-wound Edges: not attached Epithelialization: not present Tissue Bed: granulation tissue not present Necrotic Tissue: not present Tenderness or pain: no pain Dressing upon arrival: Iodoform packing Dressing removed and Wound washed with 0.25% Dakins solution Devitalized Tissue Removed, all remaining suture removed by Moisten melissa Ag 4.34 sq/in (cut to size) was applied to right plantar and sma ll area of dehiscence packed with 1/4 iodoform packing strips with a betadine we t to dry overlay to suture site. The foot was wrapped with Kerlix and secured wi th 4' heron bandage. Patient tolerated wound care well and will follow up as noted below. 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 He notes h e has been in pain, but it is relieved with the Tylenol #3 with codeine. Patient says his home health comes twice a week to pack his incision site. He reports he is on his antibiotics and relates no new pedal concerns. [...] file Gets together: Not on file Attends mandaeism service: Not on file Active member of [...] bruising or bleeding tendencies Physical Exam: BP 105/58 (BP Location: Left arm, Patient Position: Sitting) | Pulse 86 | Temp 36.3 C (97.4 F) (Oral) | Resp 18 | Wt 275 lb (124.7 kg) | SpO2 95% | BMI 35.31 kg/m Body mass index is 35.31 kg/m. General: alert, awake, oriented x 3, appearing age appropriate, no apparent dist ress. Skin: skin color, texture, and turgor are normal. Specific Physical Exam/Lower Extremity Pedal Exam: DERM: Pedal hair growth present: no Soft tissue envelope: normal Nails are thickened, elongated, discolored, with subungual debris:yes - 1-5 of l eft foot, 1-4 of right foot Small area of dehiscence noted to proximal incision site with bloody drainage ex pressed- 1.9cm D. Remaining incision site is well co-apted. WOUND #1: Location: Right partial 5th ray amputation site- plantar wound Measurements: 10/18/19: Pre-debridement: 2.1cm L x 2.2cm W x 0cm D- red, granular Post-debridement: 2.1cm L x 2.2cm W x 0cm D- bleeding, granular 10/11/19: Pre-debridement: 2.5cm L x 2.5cm W [...] 2 50.50 Z79.4 362.04 V58.67 Pt is 5 weeks, 4 days s/p right foot resection [...] bandaged- patient to continue daily PROCEDURE NOTE: Remaining sutures removed. Vicryl suture debrided from incisi on site today. Proximal area of dehiscence then packed with 1/4" iodoform strips and dressed with betadine wet to dry. Home health orders updated Continue Rx: Levaquin 500 mg Q24H x 28 days Recommend elevating feet and wearing compression hose to alleviate swelling Pt to report to ED for any local or systemic signs of infection, discussed in detail with him today RTC in 1 week Of note, this patient has been verbally warned during this encounter by myself t hat if his inappropriate commentary and behavior towards the staff continues, he will be discharged from clinic. Patient verbally stated that he understood, apo logized and stated that he would cease all offensive behavior and comments. Scribe's Attestation I, Rodríguez Rodriguez , am scribing for, and in the presence of, Gina nielsen DPM who performed the services described here-in. Rodríguez Rodriguez, October 18, 2019, 9:39 AM Physician's Attestation I, Gina Mark DPM, personally [...] xam, assessment and plan. Gina Mark DPM Television Station Manager Podiatric Medicine and Surgery Department of Orthopaedic Surgery & Rehabilitation 10/18/19 2:00 PM documented in this encounter Plan of Treatment Care Team Description Date Type Specialty Gina Mark DPM [address] [place], [place] [address] 10/25/2019 Office Visit Surgery Darrius, Denise, RD [address] [place] [address] [phone] 12/23/2019 Insurance Writer [facility] [address] [place] [address]. [place] [address] 12/24/2019 Office Visit Ophthalmology Health [...] Noted Time Contact- MRSA 08/22/2019 6:33 PM HOME HEALTH NURSE documented as of this encounter Insurance Type Payer Benefit Subscriber ID Effective Phone Address Plan / Dates Group Medicare MEDICARE MEDICARE xxxxxxxxxxx 2008- [phone] [address] B [place] PART A & B Present [id number] [place] [id number] documented as of this encounter
--- OUTSIDE RECORDS SUMMARY | 2019-12-13 10:16 | XMS REPORT | Summary of Care ---
Author Author [facility] - Health Organization [facility] - Health Address Unknown Phone Unavailable Care Team Providers Care Associate Java Developer Name Role Phone Pcp, Patient Does Not Have A PCP [phone] Reason for Visit * Reason Comments Wound Care Encounter Details Care Team Description Date Type Department Gina Mark, MONISHA [address] [place], [place] [id number] Diabetic ulcer of other part of right fo ot associated with diabetes mellitus due to underlying condition, limited to breakdown of skin (Primary Dx); Charcot's joint of right foot; 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inopathy without macular edema, with long-term current use of insulin 10/18/2019 Office Visit [facility] W[facility] Clinic, [address], [facility] [place] [address] Allergies No Known Allergiesdocumented as of this encounter (statuses as of 10/18/2019) Medications End Date Status Medication Sig Dispensed [...] as of this encounter (statuses as of 10/18/2019) Active Problems Problem Noted Date 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, with long-term current use of insulin Overview: Added automatically from request for tj boles [id number] Charcot's joint of right foot 09/07/2019 Overview: Added automatically from request for tj boles [id number] Obesity (BMI 30-39.9) 03/27/2018 Lesion of lower eyelid 02/17/2018 Overview: Added automatically from request for tj boles [id number] Arthritis of knee, degenerative 09/21/2013 HTN (hypertension) 03/23/2012 Diabetes mellitus 03/23/2012 documented as of this encounter (statuses as of 10/18/2019) Social History Date Tobacco Use Types Packs/Day [...] - - Height 35.31 10/04/2019 11:08 AM STOCK OR DELIVERY CLERK Body Mass Index documented in this encounter Progress Notes * Gina Mark DPM - 10/18/2019 9:00 [...] all offensive behavior and comments. Scribe's Attestation IRodríguez , am scribing for, and in the presence of, Gina nielsen DPM who performed the services described here-in. Rodríguez Rodriguez, October 18, 2019, 9:39 AM Physician's Attestation Gina Rivera DPM, personally [...] xam, assessment and plan. Gina Mark DPM Drive Man Podiatric Medicine and Surgery Department of Orthopaedic Surgery & Rehabilitation 10/18/19 2:00 PM documented in this encounter Plan of Treatment Care Team Description Date Type Specialty Gina Mark DPM [address] [place], [place] [address] 10/25/2019 Office Visit Surgery Darrius, Denise, RD [address] [place] [address] [phone] 12/23/2019 Principal Software Architect Visit Endocrinology [facility]abe [facility] [address] [place] [address]. [place] [address] 12/24/2019 Office Visit Ophthalmology Health [...] Noted Time Contact- MRSA 08/22/2019 6:33 PM STOCK OR DELIVERY CLERK documented as of this encounter Insurance Type Payer Benefit Subscriber ID Effective Phone Address Plan / Dates Group Medicare MEDICARE MEDICARE xxxxxxxxxxx 2008- [phone] P[address] B [address]X PART A & B Present [id number] [place] [id number] documented as of this encounter
--- OUTSIDE RECORDS SUMMARY | 2019-12-13 10:16 | XMS REPORT | Summary of Care ---
Author Author [facility] - Health Organization [facility] - Health Address Unknown Phone Unavailable Care Team Providers Care Ged Teacher Name Role Phone Pcp, Patient Does Not Have A PCP [phone] Reason for Visit * Reason Comments Wound Care Encounter Details Care Team Description Date Type Department Gina Mark, MONISHA [address] [place], [place] [id number] Diabetic ulcer of other part of right fo ot associated with diabetes mellitus due to underlying condition, limited to breakdown of skin (Primary Dx); Wound dehiscence; Charcot's joint of right foot; 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inopathy without macular edema, with long-term current use of insulin 10/25/2019 Office Visit [facility], [address], [facility] [place] [address] Allergies No Known Allergiesdocumented as of this encounter (statuses as of 10/25/2019) Medications End Date Status Medication Sig Dispensed [...] edema, with long-term current use of insulin 10/25/2019 Discontinued (Reorder) levoFLOXacin (LEVAQUIN) Take 1 tablet 28 tablet [...] as of this encounter (statuses as of 10/25/2019) Active Problems Problem Noted Date 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, with long-term current use of insulin Overview: Added automatically from request for spencer rgery [id number] Charcot's joint of right foot 09/07/2019 Overview: Added automatically from request for spencer elvi [id number] Obesity (BMI 30-39.9) 03/27/2018 Lesion of lower eyelid 02/17/2018 Overview: Added automatically from request for spencer juniorery [id number] Arthritis of knee, degenerative 09/21/2013 HTN (hypertension) 03/23/2012 Diabetes mellitus 03/23/2012 documented as of this encounter (statuses as of 10/25/2019) Social History Date Tobacco Use Types Packs/Day [...] Signs Reading Time Taken Comments Vital Sign 132/65 10/25/2019 11:42 AM CDT Blood Pressure 88 10/25/2019 11:42 AM CDT Pulse 36.7 C (98.1 F) 10/25/2019 11:42 AM CDT Temperature 20 10/25/2019 11:42 AM CDT Respiratory Rate 98% 10/25/2019 11:42 AM CDT Oxygen Saturation - - Inhaled Oxygen Concentration 125.9 kg (277 lb 9.6 oz) 10/25/2019 11:42 AM CDT Weight - - Height 35.64 10/04/2019 11:08 AM 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 He repo rts his home health care is packing his wound as instructed. The patient has bee n having pain to his foot and reports that while out at a baby shower, several g uests stepped on his injured foot which increased his pain. He relates no other pedal concerns this visit. Past Medical History: [...] file Gets together: Not on file Attends caodaism service: Not on file Active member of [...] bruising or bleeding tendencies Physical Exam: BP 132/65 (BP Location: Right arm, Patient Position: Sitting) | Pulse 88 | Tem p 36.7 C (98.1 F) (Oral) | Resp 20 | Wt 277 lb 9.6 oz (125.9 kg) | SpO2 9 8% | BMI 35.64 kg/m Body mass index is 35.64 kg/m. 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 Wound dehiscence T81.30XA 998.30 3. Charcot's joint of right foot M14.671 094.0 713.5 4. 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 inopathy without macular edema, with long-term current use of insulin E11.3293 2 50.50 Z79.4 362.04 V58.67 Pt is 6 weeks, 4 days s/p right foot resection [...] bandaged- patient to continue daily PROCEDURE NOTE: Proximal area of dehiscence then packed with 1/4" iodoform st rips Home health orders updated Refill Rx: Levaquin 500 mg Q24H x 28 days Recommend elevating feet and wearing compression hose to alleviate swelling Pt to report to ED for any local or systemic signs of infection, discussed in detail with him today RTC in 1 week Scribe's Attestation Rodríguez Rivera , am scribing for, and in the presence of, Gina nielsen DPM who performed the services described here-in. Orthodox Ben Rodriguez, October 25, 2019, 11:54 AM Physician's Attestation I, Gina Mark DPM, [...] xam, assessment and plan. Gina Mark DPM Pricing Clerk Podiatric Medicine and Surgery Department of Orthopaedic Surgery & Rehabilitation 10/25/19 4:42 PM documented in this encounter Plan of Treatment Care Team Description Date Type Specialty Gina Mark DPM [address] [place], [place] [address] [place], [place] [address] 11/01/2019 Office Visit Surgery Darrius, Denise, RD [address] [place], [place] [address] 12/23/2019 Event Marketing Specialist Visit Endocrinology [facility] [address] [place] [address]. [place] [address] 12/24/2019 Office Visit Ophthalmology Health [...] limited to breakdown of skin - Primary Wound dehiscence Disruption of external operation (surgi darren) wound Charcot's joint of right foot 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inopathy without macular edema, with long-term current u se of insulin documented in this encounter Additional Health Concerns Resolved Time Infection Noted Time Contact- MRSA 08/22/2019 6:33 PM [employer] documented as of this encounter Insurance Type Payer Benefit Subscriber ID Effective Phone Address Plan / Dates Group Medicare MEDICARE MEDICARE xxxxxxxxxxx 2008- [phone] [address] PART A & B Present [id number] [place] [id number] documented as of this encounter
--- OUTSIDE RECORDS SUMMARY | 2019-12-13 10:16 | XMS REPORT | Summary of Care ---
Author Author [facility] - Health Organization [facility] - Health Address Unknown Phone Unavailable Care Team Providers Care Dray Driver Name Role Phone Pcp, Patient Does Not Have A PCP [phone] Reason for Visit * Reason Comments Wound Care Encounter Details Care Team Description Date Type Department Gina Mark, MONISHA [address] [place], [place] [id number] Diabetic ulcer of other part of right fo ot associated with diabetes mellitus due to underlying condition, limited to breakdown of skin (Primary Dx); Charcot's joint of right foot; 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inopathy without macular edema, with long-term current use of insulin 10/04/2019 Office Visit [facility], [address], [facility] [place] [address] Allergies No Known Allergiesdocumented as [...] Added automatically from request for tj boles [id number] Charcot's joint of right foot 09/07/2019 Overview: Added automatically from request for tj boles [id number] Obesity (BMI 30-39.9) 03/27/2018 Lesion of lower eyelid 02/17/2018 Overview: Added automatically from request for tj boles [id number] Arthritis of knee, degenerative 09/21/2013 HTN (hypertension) [...] Comments Vital Sign 122/65 10/04/2019 11:08 AM HOT PLATE [employer]YWOOD PRESS FEEDER Blood Pressure 75 10/04/2019 11:08 AM HOT PLATE [employer] PRESS FEEDER Pulse 36.4 C (97.6 F) 10/04/2019 11:08 AM HOT PLATE [employer] PR[employer] FEEDER Temperature 18 10/04/2019 11:08 AM HOT PLATE [employer] PRESS FEEDER Respiratory Rate 98% 10/04/2019 11:08 AM HOT PLATE [employer] PR[employer] FEEDER Oxygen Saturation - - Inhaled Oxygen Concentration 130 kg (286 lb 9.6 oz) 10/04/2019 11:08 AM HOT PLATE [employer] PR[employer] FEEDER Weight 188 cm (6' 2") 10/04/2019 11:08 AM HOT PLATE [employer] PR[employer] FE[employer]ER Height 36.8 10/04/2019 11:08 AM HOT [employer]ATE [employer] PR[employer] FE[employer]ER Body Mass Index documented in this encounter Progress Notes * Maria E Mustafa LVN - 10/04/2019 10:40 AM HOT [employer]ATE [employer] FE[employer]ER Laurie Marroquin is a 63 year old [...] rlix, and secured with 4" heron bandage. [facility] wound care orders were si gned by and will be sent to [facility] tomorrow. Patient t olerated wound care well, he denies any further question or concerns at this laura e. Patient will follow up as noted below. Future Appointments Date Time Provider Department Center 10/11/2019 9:00 AM Gina Mark DPM [facility] SURGERY 12/23/2019 1:[address] [facility] 12/24/2019 2:00 PM Yehuda Peres MD [facility] [employer]ATE [employer]ER * Gina Mark DPM - 10/04/2019 10:40 AM HOT [employer]ATE [employer] PR[employer] FEEDER Chief Complaint: Diabetic foot ulcer Referring Provider: [...] file Gets together: Not on file Attends jainism service: Not on file Active member of [...] xam, assessment and plan. Gina Mark DPM Floral Associate Podiatric Medicine and Surgery Department of Orthopaedic Surgery & Rehabilitation 10/04/19 4:19 PM Elizabeth Hernandez MA - 10/04/2019 10:40 AM HOT [employer]ATE [employer] PR[employer] FE[employer]ER Laurie Marroquin is a 63 year old male is here for wound care. Wound measurements Right lateral plantar 3.1 cm length, 2.9 cm width, 0.2 cm depth Patient arrived with local dressing Wound cleansed with [employer] solutions PLATE [employer] PR[employer] FEEDER documented in this encounter Plan of Treatment Care Team Description Date Type Specialty Gina Mark DPM [address] [place] [address] [phone] 10/11/2019 Office Visit Surgery Denise Rizo, RD [address] [place] [address] [phone] 12/23/2019 Digitizer Operator Visit Endocrinology [facility]abe aj [facility] [address] [place] [address]. [place], [place] [phone] 12/24/2019 Office Visit Ophthalmology Date/Time Name Type Priority Associated Diag noses 10/04/2019 4:25 PM HOT [employer]ATE [employer] FE[employer]ER WOUND/ASPIRATE OR ABSCESS LAB Routine Diab etic ulcer of other CULTURE part of right foot associated with diabetes mellitus due to underlying condition, limited to breakdown of skin Charcot's joint of right foot 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inopathy without macular edema, with long-term current use of insulin 10/04/2019 4:25 PM HOT [employer]ATE [employer] FE[employer]ER WOUND CULTURE LAB Routine Diabetic ulcer of [...] Noted Time Contact- MRSA 08/22/2019 6:33 PM HOT [employer]ATE [employer]ER documented as of this encounter Insurance Type Payer Benefit Subscriber ID Effective Phone Address Plan / Dates Group Medicare MEDICARE MEDICARE xxxxxxxxxxx 2008- [phone] [address] PART A & B Present [id number] [place] [id number] documented as of this encounter
--- OUTSIDE RECORDS SUMMARY | 2019-12-13 10:16 | XMS REPORT | Summary of Care ---
Author Author [facility] - Health Organization [facility] - Health Address Unknown Phone Unavailable Care Team Providers Care Valet Cashier Name Role Phone Pcp, Patient Does Not Have A PCP [phone] Reason for Visit * Reason Comments Wound Care Encounter Details Care Team Description Date Type Department Gina Mark, MONISHA [address] [place] [address] [phone] Diabetic ulcer of other part of right fo ot associated with diabetes mellitus due to underlying condition, limited to breakdown of skin (Primary Dx); Pain due to onychomycosis of toenail of left foot; Charcot's joint of right foot; 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inopathy without macular edema, with long-term current use of insulin 10/11/2019 Office Visit [facility], [address] [place] [address] Allergies No Known Allergiesdocumented as of this encounter (statuses as of 10/13/2019) Medications End Date Status Medication Sig Dispensed [...] as of this encounter (statuses as of 10/13/2019) Active Problems Problem Noted Date 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, with long-term current use of insulin Overview: Added automatically from request for tj boles [id number] Charcot's joint of right foot 09/07/2019 Overview: Added automatically from request for tj boles [id number] Obesity (BMI 30-39.9) 03/27/2018 Lesion of lower eyelid 02/17/2018 Overview: Added automatically from request for tj boles [id number] Arthritis of knee, degenerative 09/21/2013 HTN (hypertension) 03/23/2012 Diabetes mellitus 03/23/2012 documented as of this encounter (statuses as of 10/13/2019) Social History Date Tobacco Use Types Packs/Day [...] Comments Vital Sign 133/63 10/11/2019 9:47 AM CLINICAL SOCIOLOGIST Blood Pressure 78 10/11/2019 9:47 AM CLINICAL SOCIOLOGIST Pulse 36.8 C (98.2 F) 10/11/2019 9:47 AM CLINICAL SOCIOLOGIST Temperature 20 10/11/2019 9:47 AM CLINICAL SOCIOLOGIST Respiratory Rate 98% 10/11/2019 9:47 AM CLINICAL SOCIOLOGIST Oxygen Saturation - - Inhaled Oxygen Concentration 127.2 kg (280 lb 6.4 oz) 10/11/2019 9:47 AM CLINICAL SOCIOLOGIST Weight - - Height 36 10/04/2019 11:08 AM CLINICAL SOCIOLOGIST Body Mass Index documented in this encounter Progress Notes * Gina Mark DPM - 10/11/2019 9:00 AM CLINICAL SOCIOLOGIST Chief Complaint: Diabetic foot ulcer Referring Provider: [...] file Gets together: Not on file Attends adventist service: Not on file Active member of [...] xam, assessment and plan. Gina Mark DPM System Administration Manager Podiatric Medicine and Surgery Department of Orthopaedic Surgery & Rehabilitation 10/11/19 3:51 PM ICAL SOCIOLOGIST * Mary Alex MA - 10/11/2019 9:00 AM CLINICAL SOCIOLOGIST Laurie Marroquin is a 63 year old male is here for wound care. Wound measurements Right foot plantar 2.5 cm length, 2.5 cm width, 0.4 cm depth Patient arrived with local dressing and wrap Wound cleansed with Dakins solutions ICAL SOCIOLOGIST documented in this encounter Plan of Treatment Care Team Description Date Type Specialty Gina Mark, [address] [place] [address] [phone] 10/18/2019 Office Visit Surgery Darrius Denise, RD [address] [place] [address] [phone] 12/23/2019 Infantry Indirect Fire Crewmember Visit Endocrinology Diabe aj [facility] [address] [place] [phone] 12/24/2019 Office Visit Ophthalmology Health Maintenance Due [...] Noted Time Contact- MRSA 08/22/2019 6:33 PM CLINICAL SOCIOLOGIST documented as of this encounter Insurance Type Payer Benefit Subscriber ID Effective Phone Address Plan / Dates Group Medicare MEDICARE MEDICARE xxxxxxxxxxx 2008- [phone] [address] PART A & B Present [id number] [place] [id number] documented as of this encounter
--- OUTSIDE RECORDS SUMMARY | 2019-12-13 10:16 | XMS REPORT | Summary of Care ---
Author Author [facility] - Health Organization [facility] - Health Address Unknown Phone Unavailable Care Team Providers Care Heavy Equipment Operator Apprentice Name Role Phone Pcp, Patient Does Not Have A PCP [phone] Reason for Visit * Reason Comments Wound Care Encounter Details Care Team Description Date Type Department Gina Mark, MONISHA [address] [place] [address] [phone] Diabetic ulcer of other part of right fo ot associated with diabetes mellitus due to underlying condition, limited to breakdown of skin (Primary Dx); Pain due to onychomycosis of toenail of left foot; Charcot's joint of right foot; 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inopathy without macular edema, with long-term current use of insulin 10/11/2019 Office Visit [facility], [address] [place] [address] Allergies No Known Allergiesdocumented as [...] Added automatically from request for tj boles [id number] Charcot's joint of right foot 09/07/2019 Overview: Added automatically from request for tj boles [id number] Obesity (BMI 30-39.9) 03/27/2018 Lesion of lower eyelid 02/17/2018 Overview: Added automatically from request for tj boles [id number] Arthritis of knee, degenerative 09/21/2013 HTN (hypertension) [...] Comments Vital Sign 133/63 10/11/2019 9:47 AM CONTINUOUS IMPROVEMENT ENGINEER Blood Pressure 78 10/11/2019 9:47 AM CONTINUOUS IMPROVEMENT ENGINEER Pulse 36.8 C (98.2 F) 10/11/2019 9:47 AM CONTINUOUS IMPROVEMENT ENGINEER Temperature 20 10/11/2019 9:47 AM CONTINUOUS IMPROVEMENT ENGINEER Respiratory Rate 98% 10/11/2019 9:47 AM CONTINUOUS IMPROVEMENT ENGINEER Oxygen Saturation - - Inhaled Oxygen Concentration 127.2 kg (280 lb 6.4 oz) 10/11/2019 9:47 AM CONTINUOUS IMPROVEMENT ENGINEER Weight - - Height 36 10/04/2019 11:08 AM CONTINUOUS IMPROVEMENT ENGINEER Body Mass Index documented in this encounter Progress Notes * Gina Mark DPM - 10/11/2019 9:00 AM CONTINUOUS IMPROVEMENT ENGINEER Chief Complaint: Diabetic foot ulcer Referring Provider: [...] file Gets together: Not on file Attends pentecostal service: Not on file Active member of [...] xam, assessment and plan. Gina Mark DPM Research Asst Podiatric Medicine and Surgery Department of Orthopaedic Surgery & Rehabilitation 10/11/19 3:51 PM INUOUS IMPROVEMENT ENGINEER * Mary Alex MA - 10/11/2019 9:00 AM CONTINUOUS IMPROVEMENT ENGINEER Laurie Marroquin is a 63 year old male is here for wound care. Wound measurements Right foot plantar 2.5 cm length, 2.5 cm width, 0.4 cm depth Patient arrived with local dressing and wrap Wound cleansed with Dakins solutions INUOUS IMPROVEMENT ENGINEER documented in this encounter Plan of Treatment Care Team Description Date Type Specialty Gina Mark DPM [address] [place], [place] [address] [place], [place] [address] 10/18/2019 Office Visit Surgery Denise Rizo, RD [address] [place], [place] [address] 12/23/2019 Finance Mgr Visit Endocrinology Diabe aj & Metabolism Yehuda Peres MD [address] [place] [address]. [place] [address] [phone] 12/24/2019 Office Visit Ophthalmology Health Maintenance Due [...] Noted Time Contact- MRSA 08/22/2019 6:33 PM CONTINUOUS IMPROVEMENT ENGINEER documented as of this encounter Insurance Type Payer Benefit Subscriber ID Effective Phone Address Plan / Dates Group Medicare MEDICARE MEDICARE xxxxxxxxxxx 2008- [phone] P[address]X PART A & B Present [id number] [place] [id number] documented as of this encounter
--- OUTSIDE RECORDS SUMMARY | 2019-12-13 10:16 | XMS REPORT | Summary of Care ---
Author Author [facility] - Health Organization [facility] - Health Address Unknown Phone Unavailable Care Team Providers Care Director Of Quality Control Name Role Phone Pcp, Patient Does Not Have A PCP [phone] Reason for Visit * Reason Comments Wound Care Encounter Details Care Team Description Date Type Department Gina Mark, MONISHA [address] [place] [address] [phone] Diabetic ulcer of other part of right fo ot associated with diabetes mellitus due to underlying condition, limited to breakdown of skin (Primary Dx); Pain due to onychomycosis of toenail of left foot; Charcot's joint of right foot; 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inopathy without macular edema, with long-term current use of insulin 10/11/2019 Office Visit [facility] Wound C are [facility], [address] [place] [address] Allergies No Known Allergiesdocumented as [...] Added automatically from request for spencer elvi [id number] Charcot's joint of right foot 09/07/2019 Overview: Added automatically from request for spencer elvi [id number] Obesity (BMI 30-39.9) 03/27/2018 Lesion of lower eyelid 02/17/2018 Overview: Added automatically from request for spencer elvi [id number] Arthritis of knee, degenerative 09/21/2013 HTN (hypertension) [...] Comments Vital Sign 133/63 10/11/2019 9:47 AM WOOD ROUTER HAND Blood Pressure 78 10/11/2019 9:47 AM WOOD ROUTER HAND Pulse 36.8 C (98.2 F) 10/11/2019 9:47 AM WOOD ROUTER HAND Temperature 20 10/11/2019 9:47 AM WOOD ROUTER HAND Respiratory Rate 98% 10/11/2019 9:47 AM WOOD ROUTER HAND Oxygen Saturation - - Inhaled Oxygen Concentration 127.2 kg (280 lb 6.4 oz) 10/11/2019 9:47 AM WOOD ROUTER HAND Weight - - Height 36 10/04/2019 11:08 AM WOOD ROUTER HAND Body Mass Index documented in this encounter Progress Notes * Kirti Miller RN - 10/11/2019 9:00 AM WOOD ROUTER HAND Laurie Marroquin is a 63 year old male presents to the clinic per ambulation wit h a cane for wound care evaluation of right foot with . Patient report s 5/10 pain level, fall risk assessed, allergies reviewed, and pharmacy reviewed . Noted patient presented to the clinic before nurse arrived at 0745. Patient was blocking the front door. He firmly stated the following " I have to piss and hi s leodan (HBOT Tech) did not let me. If you don't lets me in right now, I will whip it out and piss everywhere!" Nurse responded " , that is not appropr iate behavior or language. You cannot act that way." The patient then responded " well that leodan (HBOT Tech) know i had to piss and he didn't let me in, he doesn 't care!" Nurse told the patient " Our doors do not open until 0800 every day. I m sorry but i can let you in right now." patient then entered the clinic behind the nurse mumbling words. Our Cloth Framer and and was informed a t this incident later that day. Wound#1 Wound etiology: diabetic or neurotrophic Anatomic location: Foot right Age of wound: chronic > 1 month Photos Taken Yes Vitals Taken Yes Reviewed allergies Yes Reviewed medications Yes Wound Description: Location: right plantar Size: 2.5 cm length, 2.5 cm width, 0.4 cm depth Total Area: 6.25 cm/sq Shape: oval Type of wound: partial [...] Location: right lateral foot Size: patient had surgery 09/09/19, noted linear closure with [address] e. Noted small dehiscence in mid suture line. Several sutures were removed by Dr Varghese at this time. Moisten melissa Ag 4.34 sq/in (cut to size) was applied to right plantar and sma ll area of dehiscence packed with 1/4 iodoform packing strips with a betadine we t to dry overlay to suture site. The foot was wrapped with Kerlix and secured wi th 4' heron bandage. [facility] wound care orders were signed by , forms were sent to [facility]. Patient tolerated wound care well, he denies any further question or concerns at this time. Patient will return to [facility] as noted below. Future Appointments Date Time Provider Department Center 10/18/2019 9:00 AM Gina Mark DPM [facility] 12/23/2019 1:[address] [facility] 12/24/2019 2:00 PM Yehuda Peres MD [facility] ROUTER HAND * Gina Mark DPM - 10/11/2019 9:00 AM WOOD ROUTER HAND Chief Complaint: Diabetic foot ulcer Referring Provider: José Miguel Arreola History of Present Illness: Laurei Marroquin, is a 63 year old, male, [...] our front jessica k PSS. Scribe's Attestation IRodríguez , am scribing for, and in the presence of, Gina nielsen DPM who performed the services described here-in. Rodríguez Rodriguez, October 11, 2019, 10:00 AM Physician's Attestation I, Gina Mark DPM, [...] xam, assessment and plan. Gina Mark DPM Switching Clerk Podiatric Medicine and Surgery Department of Orthopaedic Surgery & Rehabilitation 10/11/19 3:51 PM ROUTER HAND * Mary Alex MA - 10/11/2019 9:00 AM WOOD ROUTER HAND Laurie Marroquin is a 63 year old male is here for wound care. Wound measurements Right foot plantar 2.5 cm length, 2.5 cm width, 0.4 cm depth Patient arrived with local dressing and wrap Wound cleansed with [employer] ROUTER HAND documented in this encounter Plan of Treatment Care Team Description Date Type Specialty Gina Mark DPM [address] [facility] [address] 10/18/2019 Office Visit Surgery [facility], [address]ise, [address] [place] [address] [phone] 12/23/2019 Book Publisher Visit [facility]in[facility] [address] [place] [address]. [place] [address] 12/24/2019 Office Visit Ophthalmology Health [...] Noted Time Contact- MRSA 08/22/2019 6:33 PM WOOD ROUTER HAND documented as of this encounter Insurance Type Payer Benefit Subscriber ID Effective Phone Address Plan / Dates Group Medicare MEDICARE MEDICARE xxxxxxxxxxx 2008- [phone] P[address] B [address]X PART A & B Present [id number] [place] [id number] documented as of this encounter
--- OUTSIDE RECORDS SUMMARY | 2019-12-13 10:16 | XMS REPORT | Summary of Care ---
Author Author [facility] - Health Organization [facility] - Health Address Unknown Phone Unavailable Care Team Providers Care Cooperer Name Role Phone Pcp, Patient Does Not Have A PCP [phone] Encounter Details Care Team Description Date Type Department Doctor Unassigned, [place] [address] [place] [address] 10/11/2019 Orders Only [facility] [address] [place] [address] Allergies No Known Allergiesdocumented as of this encounter (statuses as of 10/14/2019) Medications End Date Status Medication Sig Dispensed [...] as of this encounter (statuses as of 10/14/2019) Active Problems Problem Noted Date 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, with long-term current use of insulin Overview: Added automatically from request for tj boles [id number] Charcot's joint of right foot 09/07/2019 Overview: Added automatically from request for tj boles [id number] Obesity (BMI 30-39.9) 03/27/2018 Lesion of lower eyelid 02/17/2018 Overview: Added automatically from request for tj boles [id number] Arthritis of knee, degenerative 09/21/2013 HTN (hypertension) 03/23/2012 Diabetes mellitus 03/23/2012 documented as of this encounter (statuses as of 10/14/2019) Social History Date Tobacco Use Types Packs/Day [...] Type Specialty Gina Mark DPM [address] [place], [place] [address] 10/18/2019 Office Visit Surgery Denise Rizo, RD [address] [place], [place] [address] 12/23/2019 Jacket Preparer [facility]in[facility] [address] [place] [address]. [place] [address] 12/24/2019 Office Visit Ophthalmology Health [...] Diag nosis HOME HEALTH - OTHER Routine 10/11/2019 12:01 AM TERMITE CONTROL REPRESENTATIVE documented in this encounter Results Not on filedocumented in this encounter Additional Health Concerns Resolved Time Infection Noted Time Contact- MRSA 08/22/2019 6:33 PM TERMITE CONTROL REPRESENTATIVE documented as of this encounter Insurance Type Payer Benefit Subscriber ID Effective Phone Address Plan / Dates Group Medicare MEDICARE MEDICARE xxxxxxxxxxx 2008- [phone] P[address] B [place]X PART A & B Present [id number] [place] [phone] documented as of this encounter
--- OUTSIDE RECORDS SUMMARY | 2019-12-13 10:16 | XMS REPORT | Summary of Care ---
Author Author [facility] - Health Organization [facility] - Health Address Unknown Phone Unavailable Care Team Providers Care Crane Engineer Name Role Phone Pcp, Patient Does Not Have A PCP [phone] Reason for Visit * Reason Comments Wound Care Encounter Details Care Team Description Date Type Department Gina Mark, MONISHA [address] [place], [place] [id number] Diabetic ulcer of other part of right fo ot associated with diabetes mellitus due to underlying condition, limited to breakdown of skin (Primary Dx); Charcot's joint of right foot; 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inopathy without macular edema, with long-term current use of insulin 10/18/2019 Office Visit [facility] Wound C are Clinic, [address], [facility] [place] [address] Allergies No Known Allergiesdocumented as [...] Added automatically from request for tj boles [id number] Charcot's joint of right foot 09/07/2019 Overview: Added automatically from request for tj boles [id number] Obesity (BMI 30-39.9) 03/27/2018 Lesion of lower eyelid 02/17/2018 Overview: Added automatically from request for tj boles [id number] Arthritis of knee, degenerative 09/21/2013 HTN (hypertension) [...] - - Height 35.31 10/04/2019 11:08 AM LOADERS Body Mass Index documented in this encounter [...] file Gets together: Not on file Attends holiness service: Not on file Active member of [...] xam, assessment and plan. Gina Mark DPM Recruitment Specialist Podiatric Medicine and Surgery Department of Orthopaedic Surgery & Rehabilitation 10/18/19 2:00 PM documented in this encounter Plan of Treatment Care Team Description Date Type Specialty Gina Mark DPM [address] [place], [place] [address] 10/25/2019 Office Visit Surgery Darri[facility], Denise, [address] [place] [address] [phone] 12/23/2019 Rotary Drier Feeder Visit [facility]ocrinology [facility] aj [facility] [address] [place] [address]. [place] [address] 12/24/2019 Office Visit Ophthalmology Health [...] Noted Time Contact- MRSA 08/22/2019 6:33 PM LOADERS documented as of this encounter Insurance Type Payer Benefit Subscriber ID Effective Phone Address Plan / Dates Group Medicare MEDICARE MEDICARE xxxxxxxxxxx 2008- [phone] P[address] B OX PART A & B Present [id number] [place] [phone] documented as of this encounter
--- OUTSIDE RECORDS SUMMARY | 2019-12-13 10:16 | XMS REPORT | Summary of Care ---
Author Author [facility] - Health Organization [facility] - Health Address Unknown Phone Unavailable Care Team Providers Care Workers Compensation Analyst Name Role Phone Pcp, Patient Does Not Have A PCP [phone] Reason for Visit * Reason Comments Wound Care Encounter Details Care Team Description Date Type Department Gina Mark, MONISHA [address] [place], [place] [id number] Diabetic ulcer of other part of right fo ot associated with diabetes mellitus due to underlying condition, limited to breakdown of skin (Primary Dx); Charcot's joint of right foot; 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inopathy without macular edema, with long-term current use of insulin 10/04/2019 Office Visit [facility] Wound C are Clinic, [address], [place] [place] [address] Allergies No Known Allergiesdocumented as [...] Added automatically from request for tj boles [id number] Charcot's joint of right foot 09/07/2019 Overview: Added automatically from request for tj boles [id number] Obesity (BMI 30-39.9) 03/27/2018 Lesion of lower eyelid 02/17/2018 Overview: Added automatically from request for tj boles [id number] Arthritis of knee, degenerative 09/21/2013 HTN (hypertension) [...] Comments Vital Sign 122/65 10/04/2019 11:08 AM CRM MARKETING ANALYST Blood Pressure 75 10/04/2019 11:08 AM CRM MARKETING ANALYST Pulse 36.4 C (97.6 F) 10/04/2019 11:08 AM CRM MARKETING ANALYST Temperature 18 10/04/2019 11:08 AM CRM MARKETING ANALYST Respiratory Rate 98% 10/04/2019 11:08 AM CRM MARKETING ANALYST Oxygen Saturation - - Inhaled Oxygen Concentration 130 kg (286 lb 9.6 oz) 10/04/2019 11:08 AM CRM MARKETING ANALYST Weight 188 cm (6' 2") 10/04/2019 11:08 AM CRM MARKETING ANALYST Height 36.8 10/04/2019 11:08 AM CRM MARKETING ANALYST Body Mass Index documented in this encounter Progress Notes * Gina Mark DPM - 10/04/2019 10:40 AM CRM MARKETING ANALYST Chief Complaint: Diabetic foot ulcer Referring Provider: [...] xam, assessment and plan. Gina Mark DPM Kick Boxer Podiatric Medicine and Surgery Department of Orthopaedic Surgery & Rehabilitation 10/04/19 4:19 PM MARKETING ANALYST * Elizabeth Leigh MA - 10/04/2019 10:40 AM CRM MARKETING ANALYST Laurie Marroquin is a 63 year old male is here for wound care. Wound measurements Right lateral plantar 3.1 cm length, 2.9 cm width, 0.2 cm depth Patient arrived with local dressing Wound cleansed with [employer] MARKETING ANALYST documented in this encounter Plan of Treatment Care Team Description Date Type Specialty Gina Mark DPM [address] [place] [address] [phone] 10/11/2019 Office Visit Surgery [address], [address] [place] [address] [phone] 12/23/2019 Social Work Msw Visit Endocrinology Diabe aj & [facility] [address] [place] [address] 12/24/2019 Office Visit Ophthalmology Order Schedule [...] Noted Time Contact- MRSA 08/22/2019 6:33 PM CRM MARKETING ANALYST documented as of this encounter Insurance Type Payer Benefit Subscriber ID Effective Phone Address Plan / Dates Group Medicare MEDICARE MEDICARE xxxxxxxxxxx 2008- [phone] P. [address]. B OX PART A & B Present [id number] [place] [phone] documented as of this encounter
--- OUTSIDE RECORDS SUMMARY | 2019-12-13 10:17 | XMS REPORT | Summary of Care ---
Author Author [facility] - Health Organization [facility] - Health Address Unknown Phone Unavailable Care Team Providers Care Cupola Worker Name Role Phone Pcp, Patient Does Not Have A PCP [phone] Reason for Visit * Reason Comments Wound Care Encounter Details Care Team Description Date Type Department Gina Mark, MONISHA [address] [place], [place] [id number] Diabetic ulcer of other part of right fo ot associated with diabetes mellitus due to underlying condition, limited to breakdown of skin (Primary Dx); Charcot's joint of right foot; Diabetes mellitus type 2, insulin dependent; 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inopathy without macular edema, with long-term current use of insulin 11/22/2019 Office Visit [facility] Wound C are Clinic, [address] [place] [address] Allergies No Known Allergiesdocumented as of this encounter (statuses as of 11/22/2019) Medications End Date Status Medication Sig Dispensed [...] as of this encounter (statuses as of 11/22/2019) Active Problems Problem Noted Date 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, with long-term current use of insulin Overview: Added automatically from request for tj boles [id number] Charcot's joint of right foot 09/07/2019 Overview: Added automatically from request for tj boles [id number] Obesity (BMI 30-39.9) 03/27/2018 Lesion of lower eyelid 02/17/2018 Overview: Added automatically from request for tj boles [id number] Arthritis of knee, degenerative 09/21/2013 HTN (hypertension) 03/23/2012 Diabetes mellitus 03/23/2012 documented as of this encounter (statuses as of 11/22/2019) Social History Date Tobacco Use Types Packs/Day [...] Signs Reading Time Taken Comments Vital Sign 135/69 11/22/2019 8:53 AM CDT Blood Pressure 74 11/22/2019 8:53 AM CDT Pulse 36.6 C (97.8 F) 11/22/2019 8:53 AM CDT Temperature 20 11/22/2019 8:53 AM CDT Respiratory Rate 99% 11/22/2019 8:53 AM CDT Oxygen Saturation - - Inhaled Oxygen Concentration 122.9 kg (271 lb) 11/22/2019 8:53 AM CDT Weight - - Height 34.79 10/04/2019 11:08 AM POLITICAL ADVISOR Body Mass Index documented in this encounter Progress Notes * Gina Mark DPM - 11/22/2019 8:40 AM CDT Chief Complaint: Diabetic foot ulcer Referring Provider: José Miguel Arreola History of Present Illness: Laurie Marroquin, is a 63 year old, male seen today for follow-up 8 weeks, 4 day s s/p bone resection of 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 He says that his foot pain is better this visit, but he is having ankle pain which flip mendez is due to his home health nurse wrapping his bandage too tight. He notes he has lost about 60 lbs, but relates no new pedal concerns this visit. Interval History 11/22/19: Pt seen today for follow-up 9 weeks, 4 days s/p bon e resection of 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 He states he sti ll has pain, but his home health nurse noted the area of wound dehiscence was he aled. Patient relates no new pedal concerns and says that he is still taking his antibiotics as prescribed. Past Medical History: Past Medical History: Diagnosis [...] file Gets together: Not on file Attends anabaptist service: Not on file Active member of [...] bruising or bleeding tendencies Physical Exam: BP 135/69 (BP Location: Right arm, Patient Position: Sitting) | Pulse 74 | Tem p 36.6 C (97.8 F) (Oral) | Resp 20 | Wt 122.9 kg (271 lb) | SpO2 99% | B FL 34.79 kg/m Body mass index is 34.79 kg/m. General: alert, awake, oriented x 3, [...] incision site with bloody drainage ex pressed- 11/22/19: Resolved 11/08/19: 0.5cm L x 0.5cm W x 1.5cm D- bleeding and granular 11/01/19: 0.5cm L x 0.6cm W x 1.5cm D- bleeding and granular with serosanguinou s drainage with mild tenderness to palpation- WOUND #1: Location: Right partial 5th ray amputation site- plantar wound Measurements: 11/22/19: Pre-debridement: 0.7cm L x 0.8cm W x 0.1cm D- pink granular wound bed with biofilm covering. Mild hyperkeratotic periwound tissue Post-debridement: 0.7cm L x 0.8cm W x 0.1cm D- bleeding, granular with thic k biofilm removed 11/08/19: Pre-debridement: 1.1cm L x 1.6cm W x 0.1cm D- granular wound bed. No d eep probing, tracking or undermining. Post-debridement: 1.1cm L x 1.6cm W x 0.1cm D- bleeding and granular 11/01/19: Pre-debridement: 1.5cm L x 2.0cm W x 0.5cm D- pink granular wound bed with biofilm covering. Hyperkeratotic periwound tissue Post-debridement: 1.5cm L x 2.0cm W x 0.5cm D- bleeding, g ranular 10/25/19: Pre-debridement: 2.0cm L x 1.9cm W [...] of right foot M14.671 094.0 713.5 3. Diabetes mellitus type 2, insulin dependent E11.9 250.00 Z79.4 V58.67 4. 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 inopathy without macular edema, with long-term current use of insulin E11.3293 2 50.50 Z79.4 362.04 V58.67 Pt is 9 weeks, 4 days s/p right foot resection of residual 5th met head - DOS - Plan: Patient evaluated and examined Condition and treatment plan discussed in detail with patient PROCEDURE NOTE: Type of Debridement: Excisional Level of Debridement: Wound debrided down to and including subcutaneous tissue l evel and muscle Tissue type removed: Biofilm Instrument: Scapel/Blade: Yes Curette:Yes Forceps: No Scissors: No Melissa applied to wound bed, then bandaged- patient to continue daily Continue Rx: Levaquin 500 mg Q24H x 28 days Advised patient to bear weight at the ball of his foot Recommend elevating feet and wearing compression hose to alleviate swelling Pt to report to ED for any local or systemic signs of infection, discussed in detail with him today RTC in 2 weeks Scribe's Attestation IRodríguez , am scribing for, and in the presence of, Gina nielsen DPM who performed the services described here-in. Rodríguez Rodriguez, November 22, 2019, 9:07 AM Physician's Attestation IGina DPM, personally performed [...] xam, assessment and plan. Gina Mark DPM Phlebotomist Prn Podiatric Medicine and Surgery Department of Orthopaedic Surgery & Rehabilitation 11/22/19 9:17 AM documented in this encounter Plan of Treatment Care Team Description Date Type Specialty Denise Rizo, RD [address] [place] [address] [phone] 12/23/2019 Supervisor Melt House Visit Endocrinology Diabe aj & Metabolism Yehuda Peres MD [address] [place] [address] [phone] 12/24/2019 Office Visit Ophthalmology Health Maintenance Due [...] - Primary Charcot's joint of right foot Diabetes mellitus type 2, insulin depen dent Type II or unspecified type diabetes me llitus without mention of complication, not stated as uncontrolled 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inopathy without macular edema, with long-term current u se of insulin documented in this encounter Additional Health Concerns Resolved Time Infection Noted Time Contact- MRSA 08/22/2019 6:33 PM POLITICAL ADVISOR documented as of this encounter Insurance Type Payer Benefit Subscriber ID Effective Phone Address Plan / Dates Group Medicare MEDICARE MEDICARE xxxxxxxxxxx 2008- [phone] P. O. B OX PART A & B Present [id number] [place] [id number] documented as of this encounter
--- OUTSIDE RECORDS SUMMARY | 2019-12-13 10:17 | XMS REPORT | Summary of Care ---
Author Author [facility] - Health Organization [facility] - Health Address Unknown Phone Unavailable Care Team Providers Care Director Skills Name Role Phone Pcp, Patient Does Not Have A PCP [phone] Reason for Visit * Reason Comments Wound Care Encounter Details Care Team Description Date Type Department Gina Mark, MONISHA [address] [place], [place] [id number] Diabetic ulcer of other part of right fo ot associated with diabetes mellitus due to underlying condition, limited to breakdown of skin (Primary Dx); Charcot's joint of right foot; Diabetes mellitus type 2, insulin dependent; 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inopathy without macular edema, with long-term current use of insulin 11/22/2019 Office Visit [facility], [address] [place] [address] Allergies No Known Allergiesdocumented as [...] Added automatically from request for tj boles [id number] Charcot's joint of right foot 09/07/2019 Overview: Added automatically from request for tj boles [id number] Obesity (BMI 30-39.9) 03/27/2018 Lesion of lower eyelid 02/17/2018 Overview: Added automatically from request for tj boles [id number] Arthritis of knee, degenerative 09/21/2013 HTN (hypertension) [...] - - Height 34.79 10/04/2019 11:08 AM CAR RENTAL CLERK Body Mass Index documented in this [...] file Gets together: Not on file Attends mosque service: Not on file Active member of [...] (271 lb) | SpO2 99% | B GA 34.79 kg/m Body mass index is 34.79 [...] xam, assessment and plan. Gina Mark DPM Abstract Manager Podiatric Medicine and Surgery Department of Orthopaedic Surgery & Rehabilitation 11/22/19 9:17 AM documented in this encounter Plan of Treatment Care Team Description Date Type Specialty Denise Rizo, RD [address] [place] [address] [phone] 12/23/2019 Medical Administrator Visit Endocrinology Diabe aj & Metabolism Yehuda Peres MD [address] [place] [address] [phone] 12/24/2019 Office Visit Ophthalmology Health Maintenance Due [...] Noted Time Contact- MRSA 08/22/2019 6:33 PM CAR RENTAL CLERK documented as of this encounter Insurance Type Payer Benefit Subscriber ID Effective Phone Address Plan / Dates Group Medicare MEDICARE MEDICARE xxxxxxxxxxx 2008- [phone] P[address] B OX PART A & B Present [id number] [place] [id number] documented as of this encounter
--- OUTSIDE RECORDS SUMMARY | 2019-12-13 10:17 | XMS REPORT | Summary of Care ---
Author Author [facility] - Health Organization [facility] - Health Address Unknown Phone Unavailable Care Team Providers Care Newspaper Managing Editor Name Role Phone Pcp, Patient Does Not Have A PCP [phone] Reason for Visit * Reason Comments Wound Care Encounter Details Care Team Description Date Type Department Gina Mark, MONISHA [address] [place], [place] [id number] Diabetic ulcer of other part of right fo ot associated with diabetes mellitus due to underlying condition, limited to breakdown of skin (Primary Dx); Wound dehiscence; Charcot's joint of right foot; 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inopathy without macular edema, with long-term current use of insulin 10/25/2019 Office Visit [facility], [address], [facility] [place] [address] Allergies No Known Allergiesdocumented as of this encounter (statuses as of 10/26/2019) Medications End Date Status Medication Sig Dispensed [...] as of this encounter (statuses as of 10/26/2019) Active Problems Problem Noted Date 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, with long-term current use of insulin Overview: Added automatically from request for spencer rgery [id number] Charcot's joint of right foot 09/07/2019 Overview: Added automatically from request for spencer elvi [id number] Obesity (BMI 30-39.9) 03/27/2018 Lesion of lower eyelid 02/17/2018 Overview: Added automatically from request for specner juniorery [id number] Arthritis of knee, degenerative 09/21/2013 HTN (hypertension) 03/23/2012 Diabetes mellitus 03/23/2012 documented as of this encounter (statuses as of 10/26/2019) Social History Date Tobacco Use Types Packs/Day [...] - - Height 35.64 10/04/2019 11:08 AM MENAGERIE SUPERINTENDENT Body Mass Index documented in this encounter Progress Notes * Kirti Miller RN - 10/25/2019 11:00 AM CDT Laurie Marroquin is a 63 [...] Yes Wound Description: Location: right plantar Size: 1.9 cm length, 1.6 cm width, 0.4 cm depth Total Area: 3.04 cm/sq Shape: oval Type of wound: partial [...] yes by . Wound #2 Wound etiology: surgical Anatomic location: Foot right Age of wound: chronic > 1 month Photos Taken Yes Vitals Taken Yes Reviewed allergies Yes Reviewed medications Yes Wound Description: Location: right lateral foot Size:0.3 cm length,0.4 cm width, 1.8 cm depth Total Area: 0.12 cm/sq Shape: oval Type of wound: surgical wound Exudate: amount moderate, color serosanguinous, consistency watery Pitting Edema : no Sepsis: odor detected Surrounding skin: erythematous and intact Maceration: present, location: lana-wound Edges: not attached Epithelialization: not present Tissue Bed: granulation tissue not present Necrotic Tissue: not present Tenderness or pain: no pain Dressing upon arrival: 1/4 iodoform packing Dressing removed and Wound washed with 0.25% dakins solution Devitalized Tissue Removed No Moisten melissa Ag 4.34 sq/in (cut to size) was applied to right plantar and sma ll area of dehiscence packed with 1/4 iodoform packing strips.The foot was wrapp ed with Kerlix and secured with 4' heron bandage. Patient tolerated wound care wel l and will follow up as noted below. Future Appointments Date Time Provider Department Center 11/01/2019 8:40 AM Gina Mark DPM [facility] SURGERY 12/23/2019 1:[address] [facility] 12/24/2019 2:00 PM Yehuda Peres MD [facility] * Gina Mark DPM - 10/25/2019 11:00 [...] file Gets together: Not on file Attends yarsanism service: Not on file Active member of [...] the services described here-in. Rodríguez Rodriguez, October 25, 2019, 11:54 AM Physician's Attestation Gina Rivera DPM, personally [...] xam, assessment and plan. Gina Mark DPM Clinical Resource Nurse Podiatric Medicine and Surgery Department of Orthopaedic Surgery & Rehabilitation 10/25/19 4:42 PM documented in this encounter Plan of Treatment Care Team Description Date Type Specialty Gina Mark DPM [address] [place], [place] [address] 11/01/2019 Office Visit Surgery Darrius, Denise, RD [address] [place], [place] [address] 12/23/2019 Physical Integration Practitioner Visit Endocrinology Diabe aj & Metabolism PuthenYehuda askew MD [address] [place] [address]. [place], [place] [id number] 12/24/2019 Office Visit Ophthalmology Health Maintenance Due [...] Noted Time Contact- MRSA 08/22/2019 6:33 PM MENAGERIE SUPERINTENDENT documented as of this encounter Insurance Type Payer Benefit Subscriber ID Effective Phone Address Plan / Dates Group Medicare MEDICARE MEDICARE xxxxxxxxxxx 2008- [phone] P[address] B [address]X PART A & B Present [id number] [place] [id number] documented as of this encounter
--- OUTSIDE RECORDS SUMMARY | 2019-12-13 10:17 | XMS REPORT | Summary of Care ---
Author Author [facility] - Health Organization [facility] - Health Address Unknown Phone Unavailable Care Team Providers Care Cage/Vault Supervisor Name Role Phone Pcp, Patient Does Not Have A PCP [phone] Reason for Visit * Reason Comments Wound Care Encounter Details Care Team Description Date Type Department Gina Mark, MONISHA [address] [place], [place] [id number] Diabetic ulcer of other part of right fo ot associated with diabetes mellitus due to underlying condition, limited to breakdown of skin (Primary Dx); Wound dehiscence; Charcot's joint of right foot; 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inopathy without macular edema, with long-term current use of insulin 11/01/2019 Office Visit [facility], [address], [facility] [place] [address] Allergies No Known Allergiesdocumented as of this encounter (statuses as of 11/01/2019) Medications End Date Status Medication Sig Dispensed [...] as of this encounter (statuses as of 11/01/2019) Active Problems Problem Noted Date 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, with long-term current use of insulin Overview: Added automatically from request for tj boles [id number] Charcot's joint of right foot 09/07/2019 Overview: Added automatically from request for tj boles [id number] Obesity (BMI 30-39.9) 03/27/2018 Lesion of lower eyelid 02/17/2018 Overview: Added automatically from request for tj boles [id number] Arthritis of knee, degenerative 09/21/2013 HTN (hypertension) 03/23/2012 Diabetes mellitus 03/23/2012 documented as of this encounter (statuses as of 11/01/2019) Social History Date Tobacco Use Types Packs/Day [...] Signs Reading Time Taken Comments Vital Sign 123/66 11/01/2019 8:20 AM CDT Blood Pressure 75 11/01/2019 8:20 AM CDT Pulse 36.8 C (98.2 F) 11/01/2019 8:20 AM CDT Temperature 18 11/01/2019 8:20 AM CDT Respiratory Rate 97% 11/01/2019 8:20 AM CDT Oxygen Saturation - - Inhaled Oxygen Concentration 120.9 kg (266 lb 9.6 oz) 11/01/2019 8:20 AM CDT Weight - - Height 34.23 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 Patient report s 05/20 pain level and MD informed in person, fall risk assessed, allergies revi ewed, and pharmacy reviewed. Wound#1 Wound etiology: diabetic or neurotrophic Anatomic location: Foot right Age of wound: chronic > 1 month Photos Taken Yes Vitals Taken Yes Reviewed allergies Yes Reviewed medications Yes Wound Description: Location: right plantar Size: 1.4 cm length, 1.6 cm width, 0.4 cm depth Total Area: 2.24 cm/sq Shape: oval Type of wound: partial [...] Yes Wound Description: Location: right lateral foot Size:1 cm length,0.6 cm width, 0.5 cm depth Total Area: 0.6 cm/sq Shape: oval Type of wound: surgical wound Exudate: amount moderate, color green, consistency purulent Pitting Edema : no Sepsis: none Surrounding skin: erythematous, intact and warm Maceration: present, location: lana-wound Edges: not attached Epithelialization: not present Tissue Bed: granulation tissue not present Necrotic Tissue: not present Tenderness or pain: on touch Dressing upon arrival:iodoform packing Dressing removed and Wound washed with 0.25% Dakins solution Devitalized Tissue Removed No Wound Culture obtained from right lateral foot at this time per written orders f rom . Moisten melissa Ag 4.34 sq/in (cut to size) was applied to right plantar and small area of dehiscence packed with 1/4 iodoform packing strips.The foot was wrapped with Kerlix and secured with 4' heron bandage. Patient tolerated wound care well and will follow up as noted below. 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 Joanne ent says he has been experiencing 10/10 pain that keeps him up at night. He desc ribes the pain as a throbbing pain, but says it is different than the neuropathy pain he had in the past. He states his foot will "jump" and "shake" and he can take over 3 Tylenol Extra Strength without much pain relief. He says he has fin ished the Tylenol #3 he was prescribed after surgery. He says the pain goes up t o his knee. Patient relates no other pedal concerns this visit. [...] bruising or bleeding tendencies Physical Exam: BP 123/66 (BP Location: Right arm, Patient Position: Sitting) | Pulse 75 | Tem p 36.8 C (98.2 F) (Oral) | Resp 18 | Wt 120.9 kg (266 lb 9.6 oz) | SpO2 9 7% | BMI 34.23 kg/m Body mass index is 34.23 kg/m. General: alert, awake, oriented x 3, [...] incision site with bloody drainage ex pressed- 0.5cm L x 0.6cm W x 1.5cm D- bleeding and granular with serosanguinous drainage with mild tenderness to palpation- 11/01/19 WOUND #1: Location: Right partial 5th ray amputation site- plantar wound Measurements: 11/01/19: Pre-debridement: 1.5cm L x 2.0cm W [...] 2 50.50 Z79.4 362.04 V58.67 Pt is 7 weeks, 4 days s/p right foot resection [...] iodoform st rips Home health orders updated Continue Rx: Levaquin 500 mg Q24H x 28 days Discussed surgical re-debridement of wound Recommend elevating feet and wearing compression hose to alleviate swelling Pt to report to ED for any local or systemic signs of infection, discussed in detail with him today RTC in 1 week Scribe's Attestation IRodríguez , am scribing for, and in the presence of, Gina nielsen DPM who performed the services described here-in. Rodríguez Rodriguez, November 01, 2019, 8:48 AM Physician's Attestation IGina DPM, personally performed [...] xam, assessment and plan. Gina Mark DPM Leather Toggler Podiatric Medicine and Surgery Department of Orthopaedic Surgery & Rehabilitation 11/01/19 10:40 AM documented in this encounter Plan of Treatment Care Team Description Date Type Specialty Gina Mark DPM [address] [place], [place] [address] 11/08/2019 Office Visit Surgery Denise Rizo, RD [address] [place] [address] [phone] 12/23/2019 Sailmaker Visit Endocrinology Diabe aj & Metabolism Yehuda Peres MD [address] [place] [address]. [place] [address] [phone] 12/24/2019 Office Visit Ophthalmology Date/Time Name Type Priority Associated Diag noses 11/01/2019 10:28 AM CDT WOUND/ASPIRATE OR ABSCESS LAB Routine Diab etic ulcer of other CULTURE part of right foot associated with diabetes mellitus due to underlying condition, limited to breakdown of skin Wound dehiscence Charcot's joint of right foot 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inopathy without macular edema, with long-term current use of insulin 11/01/2019 10:28 AM CDT WOUND CULTURE LAB Routine Diabetic ulcer of other part of right foot associated with diabetes mellitus due to underlying condition, limited to breakdown of skin Wound dehiscence Charcot's joint of right foot 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inopathy without macular edema, with long-term current use of insulin Order Schedule Name Type Priority Associated Diag noses Expected: 11/01/2019, Expires: 1 WOUND/ASPIRATE OR ABSCESS LAB Routine Diab etic ulcer of other CULTURE part of right foot associated with diabetes mellitus due to underlying condition, limited to breakdown of skin Wound dehiscence Charcot's joint of right foot Type 2 [...] Noted Time Contact- MRSA 08/22/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 B OX PART A & B Present [id number] [place] [id number] documented as of this encounter
--- OUTSIDE RECORDS SUMMARY | 2019-12-13 10:17 | XMS REPORT | Summary of Care ---
Author Author [facility] - Health Organization [facility] - Health Address Unknown Phone Unavailable Care Team Providers Care Conservation Biology Professor Name Role Phone Pcp, Patient Does Not Have A PCP Encounter Details Care Team Description Date Type Department Doctor Unassigned, [place] [address] [place] [address] 11/08/2019 Orders Only [facility] [address] [place] [address] Allergies No Known Allergiesdocumented as of this encounter (statuses as of 11/11/2019) Medications End Date Status Medication Sig Dispensed [...] as of this encounter (statuses as of 11/11/2019) Active Problems Problem Noted Date 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, with long-term current use of insulin Overview: Added automatically from request for tj boles [id number] Charcot's joint of right foot 09/07/2019 Overview: Added automatically from request for tj pachecoery [id number] Obesity (BMI 30-39.9) 03/27/2018 Lesion of lower eyelid 02/17/2018 Overview: Added automatically from request for tj boles [id number] Arthritis of knee, degenerative 09/21/2013 HTN (hypertension) 03/23/2012 Diabetes mellitus 03/23/2012 documented as of this encounter (statuses as of 11/11/2019) Social History Date Tobacco Use Types Packs/Day [...] Type Specialty Gina Mark, MONISHA [address] [place], [place] [address] 11/22/2019 Office Visit Surgery Denise Rizo, RD [address] [place], [place] [address] 12/23/2019 Loft Patternmaker Visit Endocrinology Diabe aj & Metabolism [facility] [address] [place] [address] 12/24/2019 Office Visit Ophthalmology Health Maintenance [...] Diag nosis HOME HEALTH - OTHER Routine 11/08/2019 12:01 AM CDT documented in this encounter Results Not on filedocumented in this encounter Additional Health Concerns Resolved Time Infection Noted Time Contact- MRSA 08/22/2019 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 O. B OX PART A & B Present [id number] [place] [id number] documented as of this encounter
--- OUTSIDE RECORDS SUMMARY | 2019-12-13 10:17 | XMS REPORT | Summary of Care ---
Author Author [facility] - Health Organization [facility] - Health Address Unknown Phone Unavailable Care Team Providers Care Chemical Processing Equipment Repairer Name Role Phone Pcp, Patient Does Not Have A PCP [phone] Reason for Visit * Reason Comments Appointment Encounter Details Care Team Description Date Type Department Yehuda Peres MD [address] [place] [address] Appointment 11/29/2019 Telephone [facility] Eye [address] [place] [address] Allergies No Known Allergiesdocumented as of this encounter (statuses as of 11/29/2019) Medications End Date Status Medication Sig Dispensed [...] as of this encounter (statuses as of 11/29/2019) Active Problems Problem Noted Date 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, with long-term current use of insulin Overview: [facility] [id number] Charcot's joint of right foot 09/07/2019 Overview: [facility] [id number] Obesity (BMI 30-39.9) 03/27/2018 Lesion of lower eyelid 02/17/2018 Overview: Added automatically from request for tj boles [id number] Arthritis of knee, degenerative 09/21/2013 HTN (hypertension) 03/23/2012 Diabetes mellitus 03/23/2012 documented as of this encounter (statuses as of 11/29/2019) Social History Date Tobacco Use Types Packs/Day [...] Type Specialty Gina Mark, MONISHA [address] [place] [address] [phone] 12/06/2019 Office Visit Surgery Darrius, Denise, RD [address] [place] [address] [phone] 12/23/2019 Funeral Service Apprentice Visit Endocrinology Diabe aj & [facility] [address] [place] [address]. 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 O. B PART A & B Present [id number] [place] [id number] documented as of this encounter
--- OUTSIDE RECORDS SUMMARY | 2019-12-13 10:17 | XMS REPORT | Summary of Care ---
Author Author [facility] - Health Organization [facility] - Health Address Unknown Phone Unavailable Care Team Providers Care Clam Grader Name Role Phone Pcp, Patient Does Not Have A PCP [phone] Encounter Details Care Team Description Date Type Department Doctor Unassigned, [place] [address] [place] [address] 11/29/2019 Orders Only [facility] [address] [place] [address] Allergies No Known Allergiesdocumented as of this encounter (statuses as of 2019) Medications End Date Status Medication Sig Dispensed [...] as of this encounter (statuses as of 2019) Active Problems Problem Noted Date 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, with long-term current use of insulin Overview: Added automatically from request for tj boles [id number] Charcot's joint of right foot 09/07/2019 Overview: Added automatically from request for tj pachecoery [id number] Obesity (BMI 30-39.9) 03/27/2018 Lesion of lower eyelid 02/17/2018 Overview: Added automatically from request for tj boles [id number] Arthritis of knee, degenerative 09/21/2013 HTN (hypertension) 03/23/2012 Diabetes mellitus 03/23/2012 documented as of this encounter (statuses as of 2019) Social History Date Tobacco Use Types Packs/Day [...] Type Specialty Gina Mark DPM [address] [place], [place] [address] 12/06/2019 Office Visit Surgery Denise Rizo, RD [address] [place] [address] [phone] 12/23/2019 Quarter Section Ironer Visit Endocrinology Diabe aj & Metabolism Rob Randolph MD [address] [place] [address]. 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 B OX PART A & B Present [id number] [place] [id number] documented as of this encounter
--- OUTSIDE RECORDS SUMMARY | 2019-12-13 10:17 | XMS REPORT | Summary of Care ---
Author Author [facility] - Health Organization [facility] - Health Address Unknown Phone Unavailable Care Team Providers Care Real Estate Attorney Name Role Phone Pcp, Patient Does Not Have A PCP [phone] Reason for Visit * Reason Comments Wound Care Encounter Details Care Team Description Date Type Department Gina Mark, MONISHA [address] [place], [place] [address] Diabetic ulcer of other part of right fo ot associated with diabetes mellitus due to underlying condition, limited to breakdown of skin (Primary Dx); Wound dehiscence; Charcot's joint of right foot; Diabetes mellitus type 2, insulin dependent 11/08/2019 Office Visit [facility], [address], [facility] [place] [address] Allergies No Known Allergiesdocumented as of this encounter (statuses as of 11/08/2019) Medications End Date Status Medication Sig Dispensed [...] as of this encounter (statuses as of 11/08/2019) Active Problems Problem Noted Date 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, with long-term current use of insulin Overview: Added automatically from request for tj boles [id number] Charcot's joint of right foot 09/07/2019 Overview: Added automatically from request for tj boles [id number] Obesity (BMI 30-39.9) 03/27/2018 Lesion of lower eyelid 02/17/2018 Overview: Added automatically from request for tj boles [id number] Arthritis of knee, degenerative 09/21/2013 HTN (hypertension) 03/23/2012 Diabetes mellitus 03/23/2012 documented as of this encounter (statuses as of 11/08/2019) Social History Date Tobacco Use Types Packs/Day [...] Signs Reading Time Taken Comments Vital Sign 122/71 11/08/2019 9:00 AM CDT Blood Pressure 84 11/08/2019 9:00 AM CDT Pulse 36.6 C (97.8 F) 11/08/2019 9:00 AM CDT Temperature 22 11/08/2019 9:00 AM CDT Respiratory Rate 100% 11/08/2019 9:00 AM CDT Oxygen Saturation - - Inhaled Oxygen Concentration 118.2 kg (260 lb 9.6 oz) 11/08/2019 9:00 AM CDT Weight - - Height 33.46 10/04/2019 11:08 AM GIS SOFTWARE DEVELOPER Body Mass Index documented in this encounter Progress Notes * Kirti Miller RN - 11/08/2019 8:40 AM CDT Laurie Marroquin is a [...] Yes Wound Description: Location: right plantar Size: 0.7 cm length, 0.4 cm width, 0.2 cm depth Total Area: 0.28 cm/sq Shape: irregular Type of wound: partial thickness wound Exudate: amount moderate, color serosanguinous, consistency watery Pitting Edema : no Sepsis: none Surrounding skin: intact and warm Maceration: not present Edges: attached and smooth Epithelialization: not present Tissue Bed: granulation tissue present 75% Necrotic Tissue: present. Type: slough yellow . Percentage of wound: 25% Tenderness or pain: anytime Dressing upon arrival:melissa Ag and local dressing Dressing removed and Wound washed with 0.25% Dakins solution Devitalized Tissue Removed yes by . Wound #2 Wound etiology: surgical Anatomic location: Foot right Age of wound: chronic > 1 month Photos Taken Yes Vitals Taken Yes Reviewed allergies Yes Reviewed medications Yes Shape: irregular Type of wound: partial thickness wound Exudate: amount moderate, color green, consistency purulent Pitting Edema : no Sepsis: none Surrounding skin: discolored and intact Maceration: present, location: lana-wound Edges: not attached Epithelialization: not present Tissue Bed: granulation tissue not present Necrotic Tissue: not present Tenderness or pain: anytime Dressing upon arrival:iodorform 1/4 packing Dressing removed and Wound washed with 0.25% Dakins solution Devitalized Tissue Removed No Moisten melissa Ag 4.34 sq/in (cut to size)wasapplied to right plantar and sm all area of dehiscence packed with 1/4 iodoform packing strips.The foot was wrap ped with Kerlix and secured with 4' heron bandage. Patient tolerated wound care we ll and will follow up as noted below. Future Appointments Date Time Provider Department Center 11/22/2019 8:40 AM Gina Mark DPM [facility] SURGERY 12/23/2019 1:[address] [facility] 12/24/2019 2:00 PM Yehuda Peres MD [facility] * Gina Mark DPM - 11/08/2019 8:40 AM CDT Laurie Marroquin is a [...] Yes Wound Description: Location: right plantar Size: 0.7 cm length, 0.4 cm width, 0.2 cm depth Total Area: 0.28 cm/sq Shape: irregular Type of wound: partial thickness wound Exudate: amount moderate, color serosanguinous, consistency watery Pitting Edema : no Sepsis: none Surrounding skin: intact and warm Maceration: not present Edges: attached and smooth Epithelialization: not present Tissue Bed: granulation tissue present 75% Necrotic Tissue: present. Type: slough yellow . Percentage of wound: 25% Tenderness or pain: anytime Dressing upon arrival:melissa Ag and local dressing Dressing removed and Wound washed with 0.25% Dakins solution Devitalized Tissue Removed yes by . Wound #2 Wound etiology: surgical Anatomic location: Foot right Age of wound: chronic > 1 month Photos Taken Yes Vitals Taken Yes Reviewed allergies Yes Reviewed medications Yes Shape: irregular Type of wound: partial thickness wound Exudate: amount moderate, color green, consistency purulent Pitting Edema : no Sepsis: none Surrounding skin: discolored and intact Maceration: present, location: lana-wound Edges: not attached Epithelialization: not present Tissue Bed: granulation tissue not present Necrotic Tissue: not present Tenderness or pain: anytime Dressing upon arrival:iodorform 1/4 packing Dressing removed and Wound washed with 0.25% Dakins solution Devitalized Tissue Removed No Moisten melsisa Ag 4.34 sq/in (cut to size) was applied to right plantar and smal l area of dehiscence packed with 1/4 iodoform packing strips.The foot was wrappe d with Kerlix and secured with 4' heron bandage. Patient tolerated wound care well and will follow up as noted below. 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 He says that his foot pain is better this visit, but he is having ankle pain which he b rosees is due to his home health nurse [...] file Gets together: Not on file Attends lutheran service: Not on file Active member of [...] bruising or bleeding tendencies Physical Exam: BP 122/71 (BP Location: Right arm, Patient Position: Sitting) | Pulse 84 | Tem p 36.6 C (97.8 F) (Oral) | Resp 22 | Wt 118.2 kg (260 lb 9.6 oz) | SpO2 1 00% | BMI 33.46 kg/m Body mass index is 33.46 kg/m. 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 Diabetes mellitus type 2, insulin dependent E11.9 250.00 Z79.4 V58.67 Pt is 8 weeks, 4 days s/p right foot resection [...] iodoform st rips Home health orders updated Surgical path exam ordered Continue Rx: Levaquin 500 mg Q24H x [...] the services described here-in. Rodríguez Rodriguez, November 08, 2019, 9:20 AM Physician's Attestation IGina DPM, personally performed [...] xam, assessment and plan. Gina Mark DPM Manager Inventory Management Podiatric Medicine and Surgery Department of Orthopaedic Surgery & Rehabilitation 11/08/19 11:51 AM documented in this encounter Plan of Treatment Care Team Description Date Type Specialty Gina Mark DPM [address] [place], [place] [address] [place] [address] [phone] 11/22/2019 Office Visit Surgery Darrius, Denise, RD [address] [place] [address] [phone] 12/23/2019 Microfilm Duplicating Unit Supervisor Visit Endocrinology Diabe aj & Metabolism Yehuda Peres MD [address] [place] [address] [phone] 12/24/2019 Office Visit Ophthalmology Order Schedule Name Type Priority Associated Diag noses Expected: 11/08/2019, Expires: 1 SURGICAL PATHOLOGY EXAM LAB Routine Diabet ic ulcer of other part of right foot associated with diabetes mellitus due to underlying condition, limited to breakdown of skin Wound dehiscence Charcot's joint of right foot Diabetes mellitus type 2, insulin dependent Health [...] darren) wound Charcot's joint of right foot Diabetes mellitus type 2, insulin depen dent Type II or unspecified type diabetes me llitus without mention of complication, not stated as uncontrolled documented in this encounter Additional Health Concerns Resolved Time Infection Noted Time Contact- MRSA 08/22/2019 6:33 PM GIS SOFTWARE DEVELOPER documented as of this encounter Insurance Type Payer Benefit Subscriber ID Effective Phone Address Plan / Dates Group Medicare MEDICARE MEDICARE xxxxxxxxxxx 2008- [phone] [address] [place] PART A & B Present [id number] [place] [id number] documented as of this encounter
--- OUTSIDE RECORDS SUMMARY | 2019-12-13 10:17 | XMS REPORT | Summary of Care ---
Author Author [facility] - Health Organization [facility] - Health Address Unknown Phone Unavailable Care Team Providers Care Prior Authorization Technician Name Role Phone Pcp, Patient Does Not Have A PCP [phone] Reason for Visit * Reason Comments Wound Care Encounter Details Care Team Description Date Type Department Gina Mark, MONISHA [address] [place], [place] [address] Diabetic ulcer of other part of right fo ot associated with diabetes mellitus due to underlying condition, limited to breakdown of skin (Primary Dx); Wound dehiscence; Charcot's joint of right foot; Diabetes mellitus type 2, insulin dependent 11/08/2019 Office Visit [facility], [address], [facility] [place] [address] Allergies No Known Allergiesdocumented as [...] Added automatically from request for tj boles [id number] Charcot's joint of right foot 09/07/2019 Overview: Added automatically from request for tj boles [id number] Obesity (BMI 30-39.9) 03/27/2018 Lesion of lower eyelid 02/17/2018 Overview: Added automatically from request for tj boles [id number] Arthritis of knee, degenerative 09/21/2013 HTN (hypertension) [...] - - Height 33.46 10/04/2019 11:08 AM SPRING MANUFACTURING SET UP TECHNICIAN Body Mass Index documented in this encounter Progress Notes * Gina Mark DPM - 11/08/2019 8:40 [...] SURGERY 12/23/2019 1:[address] [facility] 12/24/2019 2:00 PM Yehuda Peres MD [...] he is having ankle pain which he celestina mendez is due to his home health [...] file Gets together: Not on file Attends church service: Not on file Active member of [...] 2 weeks Scribe's Attestation Rodríguez Rivera , flor scribing for, and in the presence of, Gina nielsen DPM who performed the services described here-in. Rodríguez Rodriguez, November 08, 2019, 9:20 AM Physician's Attestation Gina Rivera DPM, personally [...] xam, assessment and plan. Gina Mark DPM Environmental Systems Coordinator Podiatric Medicine and Surgery Department of Orthopaedic Surgery & Rehabilitation 11/08/19 11:51 AM documented in this encounter Plan of Treatment Care Team Description Date Type Specialty Gina Mark DPM [address] [place] [address] [address] [place], [place] [address] 11/22/2019 Office Visit Surgery Darrius, Denise, RD [address] [place], [place] [address] 12/23/2019 Cutlet Maker Pork Visit Endocrinology Diabe aj & Metabolism Yehuda Peres MD [address] [place] [address]. [place], [place] [address] 12/24/2019 Office Visit Ophthalmology Order Schedule Name [...] Wound dehiscence Disruption of external operation (surgi adrren) wound Charcot's joint of right foot Diabetes mellitus type 2, insulin depen dent Type II or unspecified type diabetes me llitus without mention of complication, not stated as uncontrolled documented in this encounter Additional Health Concerns Resolved Time Infection Noted Time Contact- MRSA 08/22/2019 6:33 PM SPRING MANUFACTURING SET UP TECHNICIAN documented as of this encounter Insurance Type Payer Benefit Subscriber ID Effective Phone Address Plan / Dates Group Medicare MEDICARE MEDICARE xxxxxxxxxxx 2008- [phone] [address] PART A & B Present [id number] [place] [id number] documented as of this encounter
--- OUTSIDE RECORDS SUMMARY | 2019-12-13 10:17 | XMS REPORT | Summary of Care ---
Author Author [facility] - Health Organization [facility] - Health Address Unknown Phone Unavailable Care Team Providers Care Talent Agent Name Role Phone Pcp, Patient Does Not Have A PCP [phone] Reason for Visit * Reason Comments Wound Care Encounter Details Care Team Description Date Type Department Gina Mark, MONISHA [address] [place], [place] [id number] Diabetic ulcer of other part of right fo ot associated with diabetes mellitus due to underlying condition, limited to breakdown of skin (Primary Dx); Wound dehiscence; Charcot's joint of right foot; 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inopathy without macular edema, with long-term current use of insulin 11/01/2019 Office Visit [facility], [address], [facility] [place] [address] Allergies No Known Allergiesdocumented as [...] Added automatically from request for tj boles [id number] Charcot's joint of right foot 09/07/2019 Overview: Added automatically from request for tj boles [id number] Obesity (BMI 30-39.9) 03/27/2018 Lesion of lower eyelid 02/17/2018 Overview: Added automatically from request for tj boles [id number] Arthritis of knee, degenerative 09/21/2013 HTN (hypertension) [...] - Height 34.23 10/04/2019 11:08 AM AUTO DETAILER Body Mass Index documented in this encounter [...] SURGERY 12/23/2019 1:[address] [facility] 12/24/2019 2:00 PM Yehuda Peres [...] xam, assessment and plan. Gina Mark DPM Forest [employer] [place] Podiatric Medicine and Surgery Department of Orthopaedic Surgery & Rehabilitation 11/01/19 10:40 AM documented in this encounter Plan of Treatment Care Team Description Date Type Specialty Gina Mark DPM [address] [place], [place] [address] 11/08/2019 Office Visit Surgery Denise Rizo, RD [address] [place] [address] [phone] 12/23/2019 Director Of Adult Epilepsy Visit Endocrinology Diabe aj & Metabolism Yehuda Peres MD [address] [place] [address]. [place] [address] [phone] 12/24/2019 Office Visit Ophthalmology Date/Time Name Type [...] Time Contact- MRSA 08/22/2019 6:33 PM AUTO DETAILER documented as of this encounter Insurance Type Payer Benefit Subscriber ID Effective Phone Address Plan / Dates Group Medicare MEDICARE MEDICARE xxxxxxxxxxx 2008- [phone] [address]X PART A & B Present [id number] [place] [id number] documented as of this encounter
--- OUTSIDE RECORDS SUMMARY | 2019-12-13 10:17 | XMS REPORT | Summary of Care ---
Author Author [facility] - Health Organization [facility] - Health Address Unknown Phone Unavailable Care Team Providers Care Contract Assistant Name Role Phone Pcp, Patient Does Not Have A PCP [phone] Reason for Visit * Reason Comments Wound Care Encounter Details Care Team Description Date Type Department Gina Mark, MONISHA [address] [place], [place] [address] Diabetic ulcer of other part of right fo ot associated with diabetes mellitus due to underlying condition, limited to breakdown of skin (Primary Dx); Wound dehiscence; Charcot's joint of right foot; Diabetes mellitus type 2, insulin dependent 11/08/2019 Office Visit [facility], [address], [facility] [place] [address] Allergies No Known Allergiesdocumented as [...] Added automatically from request for tj boles [id number] Charcot's joint of right foot 09/07/2019 Overview: Added automatically from request for tj boles [id number] Obesity (BMI 30-39.9) 03/27/2018 Lesion of lower eyelid 02/17/2018 Overview: Added automatically from request for tj boles [id number] Arthritis of knee, degenerative 09/21/2013 HTN (hypertension) [...] - - Height 33.46 10/04/2019 11:08 AM DRESS CUTTER Body Mass Index documented in this encounter [...] 1:[address] [facility] 12/24/2019 2:00 PM Yehuda Peres [...] file Gets together: Not on file Attends latter-day service: Not on file Active member of [...] xam, assessment and plan. Gina Mark DPM Acute Dialysis Nurse Podiatric Medicine and Surgery Department of Orthopaedic Surgery & Rehabilitation 11/08/19 11:51 AM documented in this encounter Plan of Treatment Care Team Description Date Type Specialty Gina Mark DPM [address] [place] [address] [address] [place], [place] [address] 11/22/2019 Office Visit Surgery Darrius, Denise, RD [address] [place], [place] [address] 12/23/2019 Finished Cloth Checker Visit Endocrinology Diabe aj & Metabolism Yehuda Peres MD [address] [place] [address]. [place], [place] [address] 12/24/2019 Office Visit Ophthalmology Order Schedule Name [...] Noted Time Contact- MRSA 08/22/2019 6:33 PM DRESS CUTTER documented as of this encounter Insurance Type Payer Benefit Subscriber ID Effective Phone Address Plan / Dates Group Medicare MEDICARE MEDICARE xxxxxxxxxxx 2008- [phone] P. O. B OX PART A & B Present [id number] [place] [id number] documented as of this encounter
--- OUTSIDE RECORDS SUMMARY | 2019-12-13 10:17 | XMS REPORT | Summary of Care ---
Author Author [facility] - Health Organization [facility] - Health Address Unknown Phone Unavailable Care Team Providers Care Cushion Assembler Name Role Phone Pcp, Patient Does Not Have A PCP [phone] Reason for Visit * Reason Comments Wound Care Encounter Details Care Team Description Date Type Department Gina Mark, MONISHA [address] [place], [place] [id number] Diabetic ulcer of other part of right fo ot associated with diabetes mellitus due to underlying condition, limited to breakdown of skin (Primary Dx); Wound dehiscence; Charcot's joint of right foot; 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inopathy without macular edema, with long-term current use of insulin 10/25/2019 Office Visit [facility], [address], [facility] [place] [address] Allergies No Known Allergiesdocumented as [...] Added automatically from request for spencer rgery [id number] Charcot's joint of right foot 09/07/2019 Overview: Added automatically from request for spencer elvi [id number] Obesity (BMI 30-39.9) 03/27/2018 Lesion of lower eyelid 02/17/2018 Overview: Added automatically from request for spencer juniorery [id number] Arthritis of knee, degenerative 09/21/2013 HTN (hypertension) [...] - - Height 35.64 10/04/2019 11:08 AM THERAPY AIDE Body Mass Index documented in this encounter [...] file Gets together: Not on file Attends sikh service: Not on file Active member of [...] DPM who performed the services described here-in. Restorationist Ben Rodriguez, October 25, 2019, 11:54 AM [...] xam, assessment and plan. Gina Mark DPM Inside Sales Territory Manager Podiatric Medicine and Surgery Department of Orthopaedic Surgery & Rehabilitation 10/25/19 4:42 PM documented in this encounter Plan of Treatment Care Team Description Date Type Specialty Gina Mark DPM [address] [place], [place] [address] [place], [place] [address] 11/01/2019 Office Visit Surgery Darrius, Denise, RD [address] [place], [place] [address] 12/23/2019 Posting Specialist Visit Endocrinology Diabe aj & [facility] [address] [place] [address]. [place] [address] 12/24/2019 Office Visit Ophthalmology Health [...] Noted Time Contact- MRSA 08/22/2019 6:33 PM THERAPY AIDE documented as of this encounter Insurance Type Payer Benefit Subscriber ID Effective Phone Address Plan / Dates Group Medicare MEDICARE MEDICARE xxxxxxxxxxx 2008- [phone] P. O. B OX PART A & B Present [id number] [place] [phone] documented as of this encounter
--- OUTSIDE RECORDS SUMMARY | 2019-12-13 10:17 | XMS REPORT | Summary of Care ---
Author Author [facility] - Health Organization [facility] - Health Address Unknown Phone Unavailable Care Team Providers Care Country Director Name Role Phone Pcp, Patient Does Not Have A PCP [phone] Reason for Visit * Reason Comments Wound Care Encounter Details Care Team Description Date Type Department Gina Mark, MONISHA [address] [place], [place] [id number] Diabetic ulcer of other part of right fo ot associated with diabetes mellitus due to underlying condition, limited to breakdown of skin (Primary Dx); Charcot's joint of right foot; Diabetes mellitus type 2, insulin dependent; 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inopathy without macular edema, with long-term current use of insulin 11/22/2019 Office Visit [facility], [address] [place] [address] Allergies No Known Allergiesdocumented as [...] Added automatically from request for tj boles [id number] Charcot's joint of right foot 09/07/2019 Overview: Added automatically from request for tj boles [id number] Obesity (BMI 30-39.9) 03/27/2018 Lesion of lower eyelid 02/17/2018 Overview: Added automatically from request for tj boles [id number] Arthritis of knee, degenerative 09/21/2013 HTN (hypertension) [...] - - Height 34.79 10/04/2019 11:08 AM CERTIFIED PEDIATRIC NURSE PRACTITIONER Body Mass Index documented in this encounter Progress Notes * Kirti Miller, RN - 11/22/2019 8:40 AM CDT Laurie Marroquin is a 63 year old male presents to the clinic per ambulation wit h a walker for wound care followed of the right foot with . Patient re ports 5/10 pain level and MD informed in person, fall risk assessed, allergies r eviewed, and pharmacy reviewed. Wound#1 Wound etiology: diabetic [...] Yes Reviewed medications Yes Wound Description: Location: Right lateral foot Resolved Moisten melissa Ag 4.34 sq/in (cut to size)wasapplied to right plantar and se cured with a bandaid. Patient tolerated wound care well, he denies any further questions or concern at this time. Patient will follow up as noted below. Future Appointments Date Time Provider Department Center 12/06/2019 8:40 AM Gina Mark DPM [facility] 12/23/2019 1:[address] [facility] 12/24/2019 2:00 PM [facility] * Gina Mark DPM - 11/22/2019 8:40 [...] is having ankle pain which he b elieves is due to his home health nurse [...] file Gets together: Not on file Attends hindu service: Not on file Active member of [...] (271 lb) | SpO2 99% | B TN 34.79 kg/m Body mass index is 34.79 [...] November 22, 2019, 9:07 AM Physician's Attestation Gina Rivera DPM, personally [...] xam, assessment and plan. Gina Mark DPM Php Website Developer Podiatric Medicine and Surgery Department of Orthopaedic Surgery & Rehabilitation 11/22/19 9:17 AM documented in this encounter Plan of Treatment Care Team Description Date Type Specialty Gina Mark DPM [address] [place] [address] [place] [address] [phone] 12/06/2019 Office Visit Surgery Darrius, Denise, RD [address] [place] [address] [phone] 12/23/2019 Percher Visit Endocrinology Diabe aj & Metabolism Yehuda Peres MD [address] [place] [address] [phone] 12/24/2019 Office Visit Ophthalmology Health Maintenance Due [...] Noted Time Contact- MRSA 08/22/2019 6:33 PM CERTIFIED PEDIATRIC NURSE PRACTITIONER documented as of this encounter Insurance Type Payer Benefit Subscriber ID Effective Phone Address Plan / Dates Group Medicare MEDICARE MEDICARE xxxxxxxxxxx 2008- [phone] [employer] B Present [id number] [place] [id number] documented as of this encounter
[2019-12-13] MEDS ORDERED: SODIUM CHLORIDE 0.9% 500ML 500 ML IV STA (10:25)
[2019-12-13] MEDS ORDERED: HUMALOG KW200 UNIT/1 (10:30)
[2019-12-13] MEDS ORDERED: LISINOPRIL40 MG (10:30)
[2019-12-13] MEDS ORDERED: DEXTROSE 50% SYRINGE 50 ML IV PRN (10:30)
[2019-12-13] MEDS ORDERED: DICLOFENAC SOD100 G1 (10:30)
[2019-12-13] MEDS ORDERED: JARDIANCE25 MG (10:30)
[2019-12-13] MEDS ORDERED: METOPROLOL SUC100 MG (10:30)
[2019-12-13] MEDS ORDERED: SODIUM CHLORIDE 0.9% 500ML 500 ML ONE (10:30)
[2019-12-13 10:45] LABS: BASOPHILS # (AUTO) 0.1 (0.0-0.1); BASOPHILS % 0.5 % (0.0-1.0); EOSINOPHILS # (AUTO) 0.2 (0.0-0.4); EOSINOPHILS % 2.5 % (0.0-6.0); HEMOGLOBIN 9.5 g/dL (14.0-18.0); LYMPHOCYTES # (AUTO) 1.1 (1.0-3.2); LYMPHOCYTES % 11.3 % (18.0-39.1); MEAN CORPUSCULAR HEMOGLOBIN 26.5 pg (28-32); MEAN CORPUSCULAR HGB CONC 31.7 g/dL (31-35); MEAN CORPUSCULAR VOLUME 83.6 fL (81-99); MONOCYTES # (AUTO) 0.8 (0.2-0.8); MONOCYTES % 8.1 % (4.4-11.3); NEUTROPHILS # (AUTO) 7.5 (2.1-6.9); NEUTROPHILS % 76.9 % (38.7-80.0); PLATELET COUNT 318 x10e3/uL (140-360); RED BLOOD COUNT 3.59 x10e6/uL (4.3-5.7); RED CELL DISTRIBUTION WIDTH 16.5 % (11.7-14.4)
[2019-12-13] MEDS ORDERED: VANCOMYCIN 1GM/NS 250 ML 250 ML IV ONE (10:45)
[2019-12-13 11:05] LABS: ALBUMIN 3.3 g/dL (3.5-5.0); ALBUMIN/GLOBULIN RATIO 0.7 (0.8-2.0); ANION GAP 15.2 mmol/L (8-16); CREATININE, SERUM 2.44 mg/dL (0.72-1.25); POTASSIUM 4.2 mmol/L (3.5-5.1)
[2019-12-13] MEDS ORDERED: ONDANSETRON HCL INJ 2MG/ML 2ML 2 MG/ML VIAL IV PRN (11:15)
[2019-12-13] MEDS ORDERED: MORPHINE SULFATE 2 MG/ML SYR 1ML IV PRN (11:15)
[2019-12-13] MEDS: INSULIN REGULAR, HUMAN 100 UNIT/1 ML 3ML VIAL SQ SCH ×3 (12:11→20:50)
--- NOTE | 2019-12-13 13:35 | NUR ---
PT ARRIVED FROM ER. PT IS AAOX4. EDUCATED PT ABOUT FALL PRECAUTIONS. PT VERBALIZED UNDERSTANDING. CALL LIGHT WITH IN EASY REACH. INSTRUCTED PT TO USE CALL LIGHT FOR ALL THE NEEDS. BED IS LOW AND LOCKED. SIDE RAILS X2. PT DENIES NEEDS AT THIS TIME.
[2019-12-13 13:55] VITALS: BP 151/69
[2019-12-13 14:00] VITALS: BP 151/69
--- NOTE | 2019-12-13 15:00 | NUR ---
HOME MEDS RECONFIRMED WITH PT.
[2019-12-13] MEDS ORDERED: JARDIANCE10 MG PO (15:02)
[2019-12-13] MEDS ORDERED: FENOFIBRATE150 MG PO (15:02)
[2019-12-13] MEDS ORDERED: AMLODIPINE BESY10 MG PO (15:02)
[2019-12-13] MEDS ORDERED: ATORVASTATIN CA40 MG PO (15:02)
[2019-12-13] MEDS ORDERED: DULOXETINE HCL30 MG PO (15:02)
[2019-12-13] MEDS ORDERED: ASPIRIN81 MG PO (15:02)
[2019-12-13] MEDS ORDERED: HUMALOG100 UNIT/3 SQ ×2 (15:02→15:06)
[2019-12-13] MEDS ORDERED: FUROSEMIDE40 MG PO (15:02)
[2019-12-13] MEDS ORDERED: TOUJEO SOL300 UNIT/1 SQ (15:08)
[2019-12-13 15:14] VITALS: BP 151/69
[2019-12-13] MEDS: MORPHINE SULFATE INJ 4 MG/ML INJ 1ML IV PRN ×2 (15:27→20:45)
[2019-12-13 16:00] VITALS: BP 156/71
--- NOTE | 2019-12-13 16:13 | NUR ---
[id number] r/o om foot dm neuropathy obesity ckd htn r/o pvd see orderes
[2019-12-13] MEDS: CEFTRIAXONE SOD 2 GM/NS 100 ML 100 ML IV SCH (17:18)
[2019-12-13] MEDS ORDERED: SODIUM CHLORIDE 0.9% 250ML 250 ML ONE (17:22)
--- NOTE | 2019-12-13 19:00 | NUR ---
Bedside nursing report with morning nurse. Pt lying in bed HOB 45. Pt c/o 11/18 pain to RLE will check next time medication due. Call light within reach. Bed low and locked.
--- NOTE | 2019-12-13 19:00 | NUR ---
BEDSIDE SHIFT REPORT GIVEN TO THE BUSINESS MANAGEMENT MANAGER RN. PT DENIED FURTHER NEEDS.
[2019-12-13 20:00] VITALS: BP 150/68
--- NOTE | 2019-12-13 20:22 | Consultation ---
DATE OF CONSULTATION: REASON FOR CONSULTATION: Infection of the right foot, osteomyelitis right foot. HISTORY OF PRESENT ILLNESS: This patient, who is a 64-year-old white male, history of hypertension, diabetes mellitus, atherosclerotic disease, neuropathy, and Charcot joint. The patient has been having problem with his right foot for several months now. He was seen by [facility]. The patient has been having drainage on and off. There were 2 wounds, one on the lateral aspect and one on the plantar aspect. He tells me there was communication. He is coming with redness and swelling of his leg. The patient comes into the hospital, where he is being admitted. He denies fever and chills, but he states the foot is worse, so the patient is being admitted. PAST MEDICAL HISTORY: Hypertension, diabetes mellitus, neuropathy, osteoarthritis, osteomyelitis, and obesity. PAST SURGICAL HISTORY: Debridement of the foot several surgical procedure before. ALLERGIES: NKA. SOCIAL HISTORY: He denies smoking, drug abuse, or alcohol abuse. FAMILY HISTORY: Hypertension and diabetes. REVIEW OF SYSTEMS: At the present time, HEENT: Negative. PULMONARY: Negative. CARDIAC: Negative. : Negative. GI: Negative. SKIN: There are no other rashes. All are within normal limits. PHYSICAL EXAMINATION: GENERAL: He is currently alert and oriented. Does not seem to be in acute distress. VITAL SIGNS: Stable, currently afebrile. HEENT: He is not icteric. NECK: Supple. CHEST: Clear bilateral. HEART: S1 and S2. No S3, S4, or murmurs. ABDOMEN: Soft. Bowel sounds present. No tenderness. EXTREMITIES: On the foot, there is redness and swelling and edema, and some drainage on the plantar aspect. The pulse was weak. IMPRESSION: 1. Since he has chronic infection of his right foot, concerned about osteomyelitis. Obtain x-ray of the foot. Obtain MRI of the foot. 2. Obesity. 3. Hypertension. 4. Neuropathy. 5. Anemia of chronic disease, on admission. 6. Chronic kidney disease with creatinine of 2.44. 7. Diabetes mellitus, not controlled. We will put the patient on Rocephin 1 g a day. Obtain MRI of the foot. Would need a bone culture. May need debridement. Further recommendation depending on the finding of the MRI and the clinical progress. We will follow with you. Thank you for asking me to see this patient. MD JOHN Capone/ZAK /[id number]
[2019-12-13 22:09] VITALS: BP 150/68
[2019-12-14] VITALS (7 sets, daily range): BP systolic 134–153; BP diastolic 63–91
[2019-12-14 05:36] LABS: BASOPHILS # (AUTO) 0.1 (0.0-0.1); BASOPHILS % 0.6 % (0.0-1.0); EOSINOPHILS # (AUTO) 0.4 (0.0-0.4); EOSINOPHILS % 4.5 % (0.0-6.0); HEMATOCRIT 28.1 % (38.2-49.6); HEMOGLOBIN 8.8 g/dL (14.0-18.0); LYMPHOCYTES # (AUTO) 1.5 (1.0-3.2); LYMPHOCYTES % 19.1 % (18.0-39.1); MEAN CORPUSCULAR HEMOGLOBIN 26.5 pg (28-32); MEAN CORPUSCULAR HGB CONC 31.3 g/dL (31-35); MEAN CORPUSCULAR VOLUME 84.6 fL (81-99); MONOCYTES # (AUTO) 0.8 (0.2-0.8); MONOCYTES % 9.8 % (4.4-11.3); NEUTROPHILS # (AUTO) 5.1 (2.1-6.9); NEUTROPHILS % 65.6 % (38.7-80.0); PLATELET COUNT 271 x10e3/uL (140-360); RED BLOOD COUNT 3.32 x10e6/uL (4.3-5.7); RED CELL DISTRIBUTION WIDTH 16.7 % (11.7-14.4)
[2019-12-14 06:00] LABS: ALBUMIN/GLOBULIN RATIO 0.7 (0.8-2.0); ANION GAP 12.9 mmol/L (8-16); CALCIUM 8.6 mg/dL (8.4-10.2); CREATININE, SERUM 2.1 mg/dL (0.72-1.25); POTASSIUM 3.9 mmol/L (3.5-5.1)
--- NOTE | 2019-12-14 06:57 | NUR ---
Received patient lying in bed with eyes closed. Respiration even and unlabored without SOB. Call light in reach.
[2019-12-14] MEDS: INSULIN REGULAR, HUMAN 100 UNIT/1 ML 3ML VIAL SQ SCH ×4 (07:30→21:00)
[2019-12-14] MEDS: INSULIN LISPRO 100 UNIT/1 ML 3ML VIAL SQ SCH ×2 (12:10→16:30)
--- NOTE | 2019-12-14 12:25 | Progress Note ---
DATE: SUBJECTIVE: Laurie Marroquin is a 64-year-old gentleman. REVIEW OF SYSTEMS: Feels better. No nausea, vomiting, fever, chills, chest pain, shortness of breath, headache, dysuria, cough, or polyuria. PHYSICAL EXAMINATION: VITAL SIGNS: Temperature 97.6, pulse of 62, respiration 18, and blood pressure 134/66. GENERAL: Alert and oriented, no acute distress. Comfortable in bed. CV: S1 and S2. CHEST: Equal expansion. Clear to auscultation. No acute distress. ABDOMEN: Soft and nontender. No distention. HEENT: Moist. No pallor. No JVD. EXTREMITIES: Bilateral lower extremities, edema and erythema, right worse than left, both seem to be improving. No active drainage noted. The plantar wound of the right foot is dried, however, it is on local care. No active drainage noted. MRI is not done yet. MEDICATIONS: Medication list reviewed and as far as Infectious Disease point of view, the patient is currently on Rocephin and he had a dose of vancomycin 1 g IV piggyback yesterday. LABORATORY STUDIES: White blood cells 7.79, hemoglobin 8.8, and platelet 271. Sodium 140, potassium 3.9, creatinine 2.1, and estimated GFR of 32. Serology; COVID-19 PCR not detected on 12/13/2019. MICROBIOLOGY: Blood culture negative 24 hours. IMPRESSION AND PLAN: The patient remains on Rocephin and had a gram of vancomycin IV yesterday. We will continue to monitor the patient and follow with the radiology studies. Other medical conditions includin. Hypertension. 2. Diabetes. 3. Chronic kidney disease. 4. Anemia of chronic disease. 5. Obesity. 6. Peripheral neuropathy. 7. Please refer to the chart for more information. Further management of this patient is based on future findings on laboratory and physical examination. Discussed with Dr. Domínguez. Dictated by Silver Driscoll PA-C (Al) Charlotte Domínguez MD /MODL /[id number]
--- NOTE | 2019-12-14 12:48 | Diagnostic Imaging Report ---
TECHNIQUE: Magnetic resonance imaging of the RIGHT foot was performed WITHOUT injected contrast. HISTORY: Right foot pain, evaluate for osteomyelitis. COMPARISON: None available. DISCUSSION: Charcot arthropathy of the midfoot and hindfoot most pronounced at the Chopart articulation between the talonavicular and calcaneocuboid joint. Bone destruction with edema and loss of T1 signal most pronounced involving the cuboid and to a lesser degree the navicular, talus, and anterior calcaneus. Small effusions extending from the hindfoot articulations. No definite sinus tracts or abscess. IMPRESSION: Charcot arthropathy of the foot most prominent at the Chopart articulation with bone destruction and marrow signal change most prominent involving the cuboid. Evaluation of superimposed osteomyelitis is difficult - bone biopsy and/or nuclear medicine white blood cell scan may be of benefit Signed by: Dr. Marco A Farris M.D. on 12/14/2019 12:45 PM
[2019-12-14] MEDS: FUROSEMIDE 40 MG TAB PO SCH (16:27)
[2019-12-14] MEDS: CEFTRIAXONE SOD 2 GM/NS 100 ML 100 ML IV SCH (16:27)
[2019-12-14] MEDS: DICLOFENAC SOD 1% GEL 100 GM TUBE TP SCH (16:38)
--- NOTE | 2019-12-14 19:10 | NUR ---
Bedside nursing report with morning nurse. Pt sitting up in bed. Pt denies pain at this time. Call light within reach. Bed low and locked.
--- NOTE | 2019-12-14 19:10 | NUR ---
Report given to head charrer. Respiration even and unlabored without SOB. Call light in reach.
[2019-12-14] MEDS: ATORVASTATIN 40 MG TAB PO SCH (21:00)
[2019-12-14] MEDS: FENOFIBRATE 145 MG TAB PO SCH (21:00)
[2019-12-14] MEDS: INSULIN GLARGINE 100 UNITS/ML VIAL SQ SCH (21:00)
[2019-12-14] MEDS: AMLODIPINE BESYLATE 5 MG TAB PO SCH (21:00)
[2019-12-15] VITALS (7 sets, daily range): BP systolic 130–179; BP diastolic 66–77
--- NOTE | 2019-12-15 06:47 | NUR ---
Pt lying in bed, no acute distress noted.
--- NOTE | 2019-12-15 07:03 | NUR ---
Received patient lying in bed with eyes open. Respiration even and unlabored without SOB. Call light in reach
[2019-12-15] MEDS: INSULIN REGULAR, HUMAN 100 UNIT/1 ML 3ML VIAL SQ SCH ×4 (07:30→21:00)
[2019-12-15] MEDS: INSULIN LISPRO 100 UNIT/1 ML 3ML VIAL SQ SCH ×4 (08:00→17:02)
[2019-12-15] MEDS: DULOXETINE HCL 30 MG DELAYED RELEASE PO SCH (08:12)
[2019-12-15] MEDS: FUROSEMIDE 40 MG TAB PO SCH ×2 (08:12→17:01)
[2019-12-15] MEDS: ASPIRIN 81 MG CHEW TAB PO SCH (08:12)
[2019-12-15] MEDS: LISINOPRIL 20 MG TAB PO SCH (08:13)
[2019-12-15] MEDS: MULTIVITAMINS/MINERALS TAB PO SCH (08:13)
[2019-12-15] MEDS: METOPROLOL SUCCINATE 50 MG TAB XL PO SCH (08:13)
[2019-12-15] MEDS: AMLODIPINE BESYLATE 10 MG TAB PO SCH (08:13)
[2019-12-15] MEDS: DICLOFENAC SOD 1% GEL 100 GM TUBE TP SCH ×2 (08:14→17:01)
--- NOTE | 2019-12-15 08:43 | NUR ---
Spoke with Dr. Price for the consult. States he or his associate will see the patient.
--- NOTE | 2019-12-15 10:59 | Progress Note ---
DATE: 12/15/2019 SUBJECTIVE: Mr. Marroquin is a 64-year-old male with history of diabetes, hypertension, hyperlipidemia, Charcot-Radha toe , came to the emergency room complaining of right foot edema and erythema. He was started on IV antibiotics for cellulitis. He is doing much better and we are awaiting for alignment mechanic to see him. PHYSICAL EXAMINATION: GENERAL: He is awake and alert. He is feeling better. VITAL SIGNS: Temperature is 97.4, blood pressure 129/67. HEART: Regularly irregular. LUNGS: Clear to auscultation. ABDOMEN: Soft. LABORATORY DATA: On the blood work, white count 7.79, hemoglobin 8.8, hematocrit 28.1. Glucose today 95. Coronavirus came back negative. Blood cultures so far have been negative. He had an MRI of the foot that shows Charcot arthropathy. Evaluation of superimposed osteomyelitis is difficult. A bone biopsy or nuclear medicine, white blood cell scan may be of benefit. ASSESSMENT AND PLAN: 1. Right lower extremity cellulitis. 2. Diabetes type 2 with hyperglycemia. 3. Hypertension. 4. Hyperlipidemia. 5. Anemia of chronic disease. 6. Diabetes with chronic kidney disease. 7. Chronic kidney disease, stage 3. 8. Diabetes with peripheral neuropathy. 9. Peripheral neuropathy. PLAN: At present time, we are awaiting for alignment mechanic to see the patient. Dr. Domínguez already saw the patient. He is on IV antibiotics, continue ADA diet, sliding scale,and continue home medications. MRI was not conclusive of osteomyelitis. He may need a bone scan. All this was discussed with the patient. All questions were answered to satisfaction. MD SERVANDO Bass/MODL /[id number]
--- NOTE | 2019-12-15 11:59 | Progress Note ---
DATE: SUBJECTIVE: The patient is seen and evaluated. Discussed with Dr. Domínguez. Discussed with staff. REVIEW OF SYSTEMS: No nausea, vomiting, fever, chills, chest pain, shortness of breath, headache, dysuria, or polyuria. PHYSICAL EXAMINATION: VITAL SIGNS: Temperature is 97.4, pulse is 65, respirations 18, and blood pressure 139/67. GENERAL: Alert and oriented, very pleasant. CV: S1 and S2. CHEST: Equal expansion. Clear to auscultation. No acute distress. ABDOMEN: Soft and nontender. No distention. HEENT: Moist. No pallor. No JVD. EXTREMITIES: Cellulitis of bilateral lower extremities with the right worse than left. Overall seem improved. MEDICATIONS: Medication list reviewed. As far as Infectious Disease point of view, the patient is on Rocephin and a gram of vancomycin. LABORATORY STUDIES: No new CBC or BMP available. Creatinine is 2.1 on 12/13. MICROBIOLOGY: Blood cultures negative. RADIOLOGY STUDIES: MRI showed evaluation of superimposed osteomyelitis is difficult, bone biopsy or indium scan was recommended, which might help, also showed Charcot arthropathy of the foot, most prominent at the Chopart articulation with bone destruction and marrow signal change, most prominent involving the cuboid. ASSESSMENT AND PLAN: 1. Cellulitis of bilateral lower extremities with the right worse than left. MRI as mentioned above. Non-necessary diagnosed osteomyelitis. 2. Hypertension. 3. Diabetes. 4. Chronic kidney disease. 5. Anemia of chronic disease. 6. Peripheral neuropathy. 7. Obesity. 8. Debility. 9. The patient remains on Rocephin, had a gram of vancomycin a couple of days ago. The patient is in chronic renal insufficiency with creatinine as mentioned above. Discussed with Dr. Domínguez in details. Please refer to chart for more information. Further management of this patient is based on daily findings on laboratory and physical examination. Dictated by Silver Driscoll PA-C (Al) Charlotte Domínguez MD /MODL /[id number]
[2019-12-15] MEDS: CEFTRIAXONE SOD 2 GM/NS 100 ML 100 ML IV SCH (17:01)
--- NOTE | 2019-12-15 19:08 | NUR ---
Report given to materials engineering technician. Respiration even and unlabored without SOB. Call light in reach.
--- NOTE | 2019-12-15 19:11 | Consultation ---
DATE OF CONSULTATION: 12/15/2019 HISTORY OF PRESENT ILLNESS: This is a 64-year-old male with past medical history of type 2 diabetes, peripheral neuropathy, Charcot neuroarthropathy, and hypertension, who was admitted two days ago for a worsening infection to his right foot. The patient had a chronic right foot wound, which is being treated by another physician in [place] for several months to several years. He has a history of bilateral fifth ray amputations, and also history of Charcot neuroarthropathy. He is a previous patient of Dr. Price, who saw him last week and sent him to have a brace made due to varus rotation and Charcot deformity. When he went to have the brace made, there was noted to be edema to the leg and they determined that the brace could not be made at this time, so he was admitted to the hospital for further workup and IV antibiotics. The patient denies pain, nausea, vomiting, fever, chills, chest pain, or shortness of breath. The patient relates to being on oral antibiotics for several months, but has never been on IV antibiotics with a PICC line for a prolonged period of time. PAST MEDICAL HISTORY: Type 2 diabetes, peripheral neuropathy, Charcot neuroarthropathy, and hypertension. PAST SURGICAL HISTORY: Multiple bilateral foot procedures including bilateral fifth ray amputations. ALLERGIES: NO KNOWN DRUG ALLERGIES. SOCIAL HISTORY: Denies smoking, drinking, or illicit drug usage. FAMILY HISTORY: Type 2 diabetes, peripheral neuropathy, hypertension, and heart disease. REVIEW OF SYSTEMS: The patient currently denies nausea, vomiting, fever, chills, chest pain, or shortness of breath. PHYSICAL EXAMINATION: GENERAL: Alert and oriented x3, in no apparent distress. VITAL SIGNS: Today, temperature is 97.4, heart rate 65, respiratory rate 18, blood pressure 139/67, and pulse ox 99% on room air. PROBLEM FOCUSED LOWER EXTREMITY PHYSICAL EXAM: Vascular, dorsalis pedis and posterior tibial pulses are faintly palpable. Capillary refill time is 3-4 seconds in all digits. Erythema, edema, and warm to the lateral aspect of the patient's right foot and ankle appeared to be significantly improved based on previous markings. NEUROLOGIC: Sensation is absent to light touch bilateral. MUSCULOSKELETAL: Bilateral partial fifth ray amputations. DERMATOLOGIC: Pre-ulcerative lesion to the plantar aspect of the right subcuboid area, which appears to be fully scabbed over with hyperkeratotic tissue. No open ulcerations are noted. No macerations. Significant reduction in periwound erythema, edema, and warmth. The wound feels to be fully epithelialized at this time. LABORATORY DATA: White blood cell count is 7.7, hemoglobin 8.8, hematocrit 28.1, and platelet count is 271. Sodium 140, potassium 3.9, chloride 105, CO2 of 26, BUN 38, creatinine 2.1, and glucose 136. Coronavirus, not detected. Blood cultures negative. IMAGING DATA: Right foot MRI reveals inconclusive evidence of osteomyelitis due to superimposed Charcot neuroarthropathy. ASSESSMENT: 1. Right foot Charcot with possible chronic osteomyelitis. 2. Type 2 diabetes peripheral neuropathy. 3. Hypertension. 4. 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 PLAN: The patient was seen and evaluated. Discussed condition and treatment options the patient in detail. Discussed with patient at this time that the wound appears significantly improved and fully epithelialized at this time with significant reduction in periwound erythema, edema, and warmth. At this time due to wound closure, we would not recommend invasive bone biopsy at this time. We would recommend Indium labeled white blood cell scan to determine osteomyelitis versus Charcot neuroarthropathy. If the bone scan returns negative, the patient will be continued to be treated with outpatient wound care with oral antibiotics. If osteomyelitis is detected within the , we would recommend six weeks of IV antibiotics. This case was discussed with Dr. Domínguez. The Podiatry Service will continue to monitor as inpatient. MONISHA Geller/ZAK /[id number]
[2019-12-15] MEDS ORDERED: ONDANSETRON HCL 4 MG ORAL DISINTEGRATING TAB PO PRN (19:15)
[2019-12-15] MEDS: INSULIN GLARGINE 100 UNITS/ML VIAL SQ SCH (20:36)
[2019-12-15] MEDS: AMLODIPINE BESYLATE 5 MG TAB PO SCH (20:53)
[2019-12-15] MEDS: FENOFIBRATE 145 MG TAB PO SCH (20:53)
[2019-12-15] MEDS: ATORVASTATIN 40 MG TAB PO SCH (20:53)
[2019-12-16] VITALS (8 sets, daily range): BP systolic 101–140; BP diastolic 60–69
[2019-12-16] MEDS: INSULIN REGULAR, HUMAN 100 UNIT/1 ML 3ML VIAL SQ SCH ×4 (07:30→22:37)
--- NOTE | 2019-12-16 07:32 | NUR ---
BSSR GIVEN TO JUAN MANUEL, PATIENT AOX4, NO DISTRESS NO C/O PAIN RIGHT LOWER EXTREMITY, CALL LIGHT WITHIN REACH, AMBULATORY BRP WITH WALKER
[2019-12-16] MEDS: INSULIN LISPRO 100 UNIT/1 ML 3ML VIAL SQ SCH ×3 (08:00→17:10)
[2019-12-16] MEDS: MULTIVITAMINS/MINERALS TAB PO SCH (09:02)
[2019-12-16] MEDS: LISINOPRIL 20 MG TAB PO SCH (09:03)
[2019-12-16] MEDS: AMLODIPINE BESYLATE 10 MG TAB PO SCH (09:03)
[2019-12-16] MEDS: METOPROLOL SUCCINATE 50 MG TAB XL PO SCH (09:04)
[2019-12-16] MEDS: FUROSEMIDE 40 MG TAB PO SCH ×2 (09:04→15:46)
[2019-12-16] MEDS: ASPIRIN 81 MG CHEW TAB PO SCH (09:05)
[2019-12-16] MEDS: DULOXETINE HCL 30 MG DELAYED RELEASE PO SCH (09:05)
[2019-12-16] MEDS: DICLOFENAC SOD 1% GEL 100 GM TUBE TP SCH ×2 (09:16→15:46)
--- NOTE | 2019-12-16 11:18 | Progress Note ---
DATE: SUBJECTIVE: The patient is seen and evaluated. Available labs and notes reviewed. Discussed with Dr. Domínguez. Podiatry notes reviewed. REVIEW OF SYSTEMS: No nausea, vomiting, fever, chills, chest pain, shortness of breath, headache, dysuria, polyuria, rash, or cough. OBJECTIVE: VITAL SIGNS: Temperature 97.2, pulse is 59, respirations 17, and blood pressure 132/60. GENERAL: Alert and oriented, no acute distress, very pleasant. CV: S1 and S2. CHEST: Equal expansion. Clear to auscultation. No acute distress. HEENT: Moist. No pallor. No JVD. EXTREMITIES: Weak with significant improvement in erythema of the right lower extremity with granulation of the wound and no significant erythema noted. MEDICATIONS: Medication list reviewed and as far as Infectious Disease point of view, the patient is on Rocephin. LABORATORY STUDIES: No new CBC or BMP available from today. Serology; COVID-19 PCR not detected on 12/13/2019. MICROBIOLOGY: Blood culture negative so far in 48 hours. There is no wound culture available. RADIOLOGY STUDIES: MRI of the foot could not determine osteomyelitis. Bone scan ordered by Podiatry and it is pending. ASSESSMENT AND PLAN: 1. Cellulitis of the right lower extremity. 2. Lower extremity wounds. 3. Hypertension. 4. Diabetes. 5. Chronic kidney disease. 6. Anemia of chronic disease. 7. Obesity. 8. Debility. 9. Peripheral neuropathy. 10. Continue with Rocephin, status post vancomycin a single dose, the patient with renal insufficiency and anemia. We will follow with the wound care and bone scan. A bone biopsy was not recommended by Podiatry secondary to wound closure. Further management of this patient is based on daily findings on laboratory and physical examination. Please refer to chart for more information. Dictated by Silver Driscoll PA-C (Al) Charlotte Domínguez MD /MODL /[id number]
--- NOTE | 2019-12-16 11:34 | Progress Note ---
DATE: 12/16/2019 SUBJECTIVE: Mr. Marroquin is a 64-year-old man with history of diabetes, hypertension, hyperlipidemia, Charcot-Radha toe, came to the emergency room with complaining of right lower extremity edema and erythema. He was started on IV antibiotics for cellulitis. He is doing much better regarding that. We are trying to rule out osteomyelitis, so he is going to go for bone scan today. PHYSICAL EXAMINATION: GENERAL: He is awake and alert. VITAL SIGNS: Temperature is 97.2, blood pressure 132/60. HEART: Regular rate. LUNGS: Clear to auscultation. ABDOMEN: Soft. LABORATORY DATA: On the blood work, white count 7.79, hemoglobin 8.8, hematocrit 28.1, and glucose 100. Blood culture so far had been negative. ASSESSMENT: 1. Right foot Charcot with possible chronic osteomyelitis. 2. Diabetes type 2 with neuropathy. 3. Peripheral neuropathy. 4. Hypertension. 5. Hyperlipidemia. 6. Diabetes type 2 with hyperglycemia. 7. Anemia of chronic disease. 8. Diabetes with chronic kidney disease. 9. Chronic kidney disease, stage 3. PLAN: At present time is the patient is going to go for continue IV antibiotics. He is doing better. He is going to go for a bone scan to rule out osteomyelitis. Once we have all these results, we will decide on how many weeks he will need of antibiotics. All this was discussed in extension with the patient. All questions were answered to satisfaction. MD SERVANDO Bass/ZAK /[id number]
--- NOTE | 2019-12-16 15:39 | Progress Note ---
DATE: 12/16/2019 SUBJECTIVE: This is a 64-year-old male with past medical history of type 2 diabetes, peripheral neuropathy, Charcot and hypertension, who was admitted for worsening infection to his right foot. The patient relates to no new pedal complaints since yesterday. Denies nausea, vomiting, fever, chills, chest pain, or short of breath; relates overall improvement since yesterday. No acute issues overnight. OBJECTIVE: VITAL SIGNS: Today temperature 97.3, heart rate 64, respiratory rate 18, blood pressure 126/61, pulse ox 97% on room air. PROBLEM FOCUSED LOWER EXTREMITY PHYSICAL EXAM: Vascular dorsalis pedis and posterior tibial pulses are faintly palpable. Capillary refill time is less than 3 seconds to all remaining digits. Erythema, edema and warmth have significantly improved since previous visit. NEUROLOGICAL: Sensation is absent to light touch bilateral. MUSCULOSKELETAL: Bilateral partial 5th ray amputations. DERMATOLOGICAL: Fully epithelialized ulceration to the plantar aspect of the patient's right foot in the area of the calcaneocuboid joint. Negative periwound erythema, edema or warmth. No active drainage at this time. LABORATORY DATA: Glucose 100. No other new labs today. ASSESSMENT: 1. Right foot Charcot with possible chronic osteomyelitis. 2. Type 2 diabetes peripheral neuropathy. 3. Hypertension. 4. Bilateral 5th ray amputations with varus rotation. PLAN: The patient was seen and evaluated. Discussed condition and treatment options with the patient in detail. At this time, the wound remains completely epithelialized and an adherent bandage was placed along the plantar arch of the patient's right foot today. There continues to be significant reduction in erythema, edema and warmth of the patient's right lower extremity. The patient had his blood drawn for indium labelling of the white blood cells to proceed with bone scan hopefully today. Once the results of the bone scan has been obtained, we will determine whether or not the patient will need long-term IV antibiotics versus p.o. antibiotics. Discussed case with Dr. Domínguez and the Podiatry Service will continue to follow. MONISHA Geller/ZAK /[id number]
[2019-12-16] MEDS: CEFTRIAXONE SOD 2 GM/NS 100 ML 100 ML IV SCH (15:46)
--- NOTE | 2019-12-16 18:48 | NUR ---
report received from renu ZAMBRANO, LYNETTE ROUNDING COMPLETED, UPDATED ON PATIENT CARE
--- NOTE | 2019-12-16 19:19 | NUR ---
Bedside shift rounding complete, report given to oncoming nurse, pt stable at this time.
[2019-12-16] MEDS: ATORVASTATIN 40 MG TAB PO SCH (21:04)
[2019-12-16] MEDS: FENOFIBRATE 145 MG TAB PO SCH (21:04)
[2019-12-16] MEDS: AMLODIPINE BESYLATE 5 MG TAB PO SCH (21:05)
[2019-12-16] MEDS: INSULIN GLARGINE 100 UNITS/ML VIAL SQ SCH (22:37)
[2019-12-17] VITALS (10 sets, daily range): BP systolic 127–148; BP diastolic 58–68
[2019-12-17] MEDS: INSULIN REGULAR, HUMAN 100 UNIT/1 ML 3ML VIAL SQ SCH ×4 (07:30→23:04)
[2019-12-17] MEDS: INSULIN LISPRO 100 UNIT/1 ML 3ML VIAL SQ SCH ×3 (08:56→17:00)
[2019-12-17] MEDS: AMLODIPINE BESYLATE 10 MG TAB PO SCH (09:00)
[2019-12-17] MEDS: METOPROLOL SUCCINATE 50 MG TAB XL PO SCH (09:01)
[2019-12-17] MEDS: ASPIRIN 81 MG CHEW TAB PO SCH (09:02)
[2019-12-17] MEDS: DULOXETINE HCL 30 MG DELAYED RELEASE PO SCH (09:02)
[2019-12-17] MEDS: MULTIVITAMINS/MINERALS TAB PO SCH (09:02)
[2019-12-17] MEDS: FUROSEMIDE 40 MG TAB PO SCH ×2 (09:02→21:02)
[2019-12-17] MEDS: LISINOPRIL 20 MG TAB PO SCH (09:03)
[2019-12-17] MEDS: DICLOFENAC SOD 1% GEL 100 GM TUBE TP SCH ×2 (09:10→21:03)
--- NOTE | 2019-12-17 09:32 | Progress Note ---
DATE: 12/17/2019 SUBJECTIVE: This is a 64-year-old male with past medical history of type 2 diabetes, peripheral neuropathy, Charcot, and hypertension, who was admitted for worsening infection to his right foot. The patient relates no new pedal complaints since yesterday. Denies nausea, vomiting, fever, chills, chest pain, or shortness of breath. No acute issues overnight. OBJECTIVE: VITAL SIGNS: Today, temperature is 96.2, heart rate 61, respiratory rate 18, blood pressure 130/60, pulse ox is 98% on room air. PROBLEM FOCUSED LOWER EXTREMITY PHYSICAL EXAM: Vascular dorsalis pedis and posterior tibial pulses are faintly palpable. Capillary refill time less than 3 seconds to all remaining digits. Erythema, edema, and warmth significantly improved over his hospital course. NEUROLOGICAL: Sensation is absent to light touch bilateral. MUSCULOSKELETAL: Bilateral partial 5th ray amputation. DERMATOLOGICAL: A preulcerative lesion on the plantar aspect of the patient's right foot in the subcalcaneocuboid joint remains fully epithelialized at this time. Negative periwound erythema, edema, or warmth. No active drainage is noted. LABORATORY DATA: Glucose is 99. No other new labs today. ASSESSMENT: 1. Right foot Charcot with possible chronic osteomyelitis. 2. Type 2 diabetes peripheral neuropathy. 3. Hypertension. 4. Bilateral 5th ray amputations, varus rotation. PLAN: The patient was seen and evaluated. Discussed condition and treatment options with the patient in detail. At this time, the wound remains completely epithelialized. We will leave the wound open to air at this time. There continues to be significant improvement in erythema, edema, and warmth to the right lower extremity. The patient had his blood drawn for indium labeling and is scheduled for bone scan today. Based on the results of bone scan, we will determine if the patient needs to be on long-term IV antibiotics versus p.o. antibiotics and local wound care. Discussed case with Dr. Domínguez. The patient is stable for discharge once the results of bone scan are obtained. The Podiatry Service will continue to follow as an inpatient. MONISHA Geller/MODL /[id number]
--- NOTE | 2019-12-17 10:52 | Progress Note ---
DATE: SUBJECTIVE: The patient is a 64-year-old gentleman. The patient is seen and evaluated. Available labs and notes reviewed. I spoke with the attending. Indium scan is still pending, mostly gets scanned today later on, maybe around noon. REVIEW OF SYSTEMS: No nausea, vomiting, fever, chills, chest pain, shortness of breath, headache, dysuria, polyuria, rash, cough. OBJECTIVE: VITAL SIGNS: Temperature 96.2, pulse is 60, respirations 18, blood pressure 138/63. GENERAL: Alert and oriented, in no acute distress. CV: S1, S2. CHEST: Equal expansion. Clear to auscultation. No acute distress. ABDOMEN: Soft and nontender. No distention. HEENT: Moist. No pallor. No JVD. EXTREMITIES: Cellulitis almost resolved. There is no erythema. The plantar wound on the right foot is almost closed. No drainage. It is soft and nontender. No erythema. MEDICATIONS: Medication list reviewed. As far as Infectious Disease point of view, the patient is on Rocephin, also had a dose of vancomycin and vancomycin random of 2.3 yesterday. MICROBIOLOGY: Blood cultures negative. RADIOLOGY STUDIES: Indium scan pending. MRI was not conclusive for osteomyelitis. ASSESSMENT AND PLAN: 1. Right foot cellulitis. 2. Right foot plantar wound. 3. Diabetes. 4. Hypertension. 5. Chronic kidney disease. 6. Obesity. 7. Anemia of chronic disease. 8. Peripheral neuropathy. The patient is on Rocephin, had vancomycin IV as well. The vancomycin random level was as mentioned above. Indium scan is pending, most likely gets completed today. Podiatry note reviewed. Pending for indium scan. Continue with antibiotic at this point to monitor patient clinically. Discussed with Dr. Domínguez in details. Please refer to chart for more information. Dictated by Silver Driscoll PA-C (Al) Charlotte Domínguez MD /MODL /[id number]
[2019-12-17] MEDS: CEFTRIAXONE SOD 2 GM/NS 100 ML 100 ML IV SCH (21:02)
[2019-12-17] MEDS: ATORVASTATIN 40 MG TAB PO SCH (21:03)
[2019-12-17] MEDS: AMLODIPINE BESYLATE 5 MG TAB PO SCH (21:03)
[2019-12-17] MEDS: FENOFIBRATE 145 MG TAB PO SCH (21:03)
--- NOTE | 2019-12-17 22:43 | Diagnostic Imaging Report ---
Labeled WBC Study Reason for exam: Diabetic foot ulcer, right foot; osteomyelitis versus Charcot joint. 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 Comparison: Report: The patient's own white blood cells were labeled with In-111 oxine 0.48 mCi by a commercial radiopharmacy. Images of the feet and ankles in orthogonal projections were obtained at 24 hours post administration of the labeled white blood cells. DIffuse, mildly increased tracer activity is seen diffusely throughout the right ankle without discrete focal abnormality. Increased tracer activity is seen in the left foot distally at the midline. IMPRESSION: 1. Scan findings are consistent with Charcot joint in the right ankle. No scan evidence of osteomyelitis in the right ankle. 2. Inflammatory process in the left forefoot in the midline is nonspecific. Approximate location is at the left 3rd or 4th toe. Signed by: Dr. Tania Coombs M.D. on 12/17/2019 10:40 PM
[2019-12-17] MEDS: INSULIN GLARGINE 100 UNITS/ML VIAL SQ SCH (23:04)
[2019-12-18] VITALS: BP 110/49
[2019-12-18 04:00] VITALS: BP 112/52
--- NOTE | 2019-12-18 06:37 | NUR ---
patient is resting comfortably in the bed. bed is in the lowest position and call light is within reach.
[2019-12-18] MEDS: INSULIN REGULAR, HUMAN 100 UNIT/1 ML 3ML VIAL SQ SCH ×2 (07:30→16:02)
[2019-12-18] MEDS: INSULIN LISPRO 100 UNIT/1 ML 3ML VIAL SQ SCH ×2 (08:00→16:01)
[2019-12-18 08:32] VITALS: BP 128/64
[2019-12-18] MEDS: FUROSEMIDE 40 MG TAB PO SCH (09:24)
[2019-12-18] MEDS: METOPROLOL SUCCINATE 50 MG TAB XL PO SCH (09:25)
[2019-12-18] MEDS: MULTIVITAMINS/MINERALS TAB PO SCH (09:27)
[2019-12-18] MEDS: AMLODIPINE BESYLATE 10 MG TAB PO SCH (09:27)
[2019-12-18] MEDS: DULOXETINE HCL 30 MG DELAYED RELEASE PO SCH (09:28)
[2019-12-18] MEDS: LISINOPRIL 20 MG TAB PO SCH (09:28)
[2019-12-18] MEDS: ASPIRIN 81 MG CHEW TAB PO SCH (09:28)
[2019-12-18] MEDS: DICLOFENAC SOD 1% GEL 100 GM TUBE TP SCH (09:28)
[2019-12-18 09:43] VITALS: BP 128/64
--- NOTE | 2019-12-18 09:45 | Progress Note ---
DATE: 12/18/2019 CHIEF COMPLAINT/HISTORY OF PRESENT ILLNESS: This is a 64-year-old white man, whose primary treating diagnosis of right Charcot foot deformity, type 2 diabetes mellitus with neuropathy, stage 3 chronic kidney disease, and anemia secondary to chronic kidney disease. The patient was being treated during this hospitalization for presumed right foot osteomyelitis with intravenous antibiotics. The patient underwent a bone scan on December 16, 2019, which revealed findings consistent with Charcot joint in the right ankle, but no scan evidence of osteomyelitis in the right ankle was appreciated. However, on December 14, 2019, the patient was found to have a BUN and creatinine of 38 and 2.10 respectively, and no repeat blood work has been performed since then. Also on December 14, 2019, the patient was found to have a hemoglobin 8.8 g/dL. REVIEW OF SYSTEMS: As per HPI. PHYSICAL EXAMINATION: GENERAL: He is awake, alert, and fluent, very pleasant. VITAL SIGNS: Blood pressure is 120/64, pulse 60, respiratory rate 16, temp 97.7, oxygenation 96% on room air. BMI 32. INTEGUMENT: Skin is warm and dry. Slight pallor. No jaundice or diaphoresis. Anicteric sclerae with moist mucous membranes. NECK: Supple. CARDIOVASCULAR: Distant heart sounds. Regular rate and rhythm. LUNGS: No rales, no rhonchi, no wheezes. ABDOMEN: Benign. EXTREMITIES: The patient has obvious right foot Charcot deformity. NEUROLOGIC: Intact. No gross deficits, but he does have decreased pinprick sensation to plantar aspect of the feet. DIAGNOSIS: 1. Chronic right Charcot foot deformity. 2. Type 2 diabetes mellitus with neuropathy. 3. Right foot/lower leg cellulitis, resolving. 4. Stage 3 chronic kidney disease. 5. Anemia secondary to chronic kidney disease. 6. Hypertensive heart disease. PLAN: 1. Blood glucose monitoring and control. 2. We will discuss with Infectious Disease specialist in regard discharge planning. 3. We will check hemoglobin and hematocrit since he has anemia secondary to chronic kidney disease. 4. We will check renal function and electrolytes since he has stage 3 chronic kidney disease. I spent 25 minutes in the care of this patient. MD FARRAH Olivier/ZAK /[id number] SCOTT
[2019-12-18 10:27] LABS: BASOPHILS # (AUTO) 0.1 (0.0-0.1); BASOPHILS % 0.8 % (0.0-1.0); EOSINOPHILS # (AUTO) 0.4 (0.0-0.4); EOSINOPHILS % 4.6 % (0.0-6.0); HEMATOCRIT 34.5 % (38.2-49.6); HEMOGLOBIN 10.7 g/dL (14.0-18.0); LYMPHOCYTES # (AUTO) 1.2 (1.0-3.2); LYMPHOCYTES % 12.6 % (18.0-39.1); MEAN CORPUSCULAR HEMOGLOBIN 25.9 pg (28-32); MEAN CORPUSCULAR VOLUME 83.5 fL (81-99); MONOCYTES # (AUTO) 1.1 (0.2-0.8); MONOCYTES % 11.3 % (4.4-11.3); NEUTROPHILS # (AUTO) 6.5 (2.1-6.9); NEUTROPHILS % 70.3 % (38.7-80.0); PLATELET COUNT 328 x10e3/uL (140-360); RED BLOOD COUNT 4.13 x10e6/uL (4.3-5.7); RED CELL DISTRIBUTION WIDTH 16.2 % (11.7-14.4)
[2019-12-18 10:47] LABS: ALBUMIN 3.4 g/dL (3.5-5.0); ALBUMIN/GLOBULIN RATIO 0.7 (0.8-2.0); ANION GAP 17.2 mmol/L (8-16); CALCIUM 9.6 mg/dL (8.4-10.2); CREATININE, SERUM 2.79 mg/dL (0.72-1.25); POTASSIUM 5.2 mmol/L (3.5-5.1)
[2019-12-18 12:04] VITALS: BP 124/61
--- NOTE | 2019-12-18 12:30 | NUR ---
IMM letter delivered and explained to pt. He verbalized understanding, states he's ready to go home. Signed copy placed in chart. Copy to pt. Dr. Catrachita lino, said pt can go home on oral abx.
--- NOTE | 2019-12-18 15:15 | NUR ---
Nutrition Screen Note RD Recommendation for Physician: -Continue current diet as ordered Plan of Care: RD following, monitoring for tolerance and adequacy Nutrition reason for involvement: Length of stay Primary Diagnose(s): cellulitis, hyperglycemia, and CKD PMH: HTN, diabetes, neuropathy, osteoarthritis, osteomyelitis, and obesity Ht: 74 in Wt: 253 lb BMI: 32.5 kg/m2 IBW:[address] Assessment: (12/17) Chart reviewed. Labs and meds reviewed. Pt is a 64 year old male admitted with cellulitis, hyperglycemia, and CKD. Pt reports he has been eating all of his meals. Pt also mentioned he used to weigh 325 lbs in June and has been intentionally losing weight. No N/V/D/C or chewing/swallowing issues. Will continue to monitor Current Diet: 1800 kcal ADA Malnutrition Evaluation (12/18/19) The patient does not meet criteria for a specified degree of malnutrition at this time. Will re-evaluate at follow-up as appropriate. Diet Education Needs Assessment:. Diet education indicated, RD provided pt with written materials regarding carbohydrate counting, reading the food label, and weight management/weight loss tips. Pt was not interested in verbal education and stated he will read the provided materials. Encouraged pt to contact RD if he has questions. Nutrition Care Level: low Signed: Imani Lee, MIRIAN, LD
--- NOTE | 2019-12-20 09:32 | Discharge Summary ---
HISTORY OF PRESENT ILLNESS: Mr. Marroquin is a 64-year-old man with history of diabetes, hypertension, hyperlipidemia, Charcot-Radha toe, who came to emergency room complaining of right lower extremity edema and erythema, started on IV antibiotics. He was found to have a small plantar lesion, went for an MRI that was not conclusive for osteomyelitis. So, a bone scan was requested. We are awaiting for results. Depending on results, the patient will be going home on IV antibiotics or p.o. antibiotics. PHYSICAL EXAMINATION: GENERAL: He is awake and alert. He is feeling better. He wants to go home. VITAL SIGNS: Temperature is 96.2, blood pressure 138/63. HEART: Regular rate. LUNGS: Clear to auscultation. ABDOMEN: Soft. EXTREMITIES: The right lower extremity edema, erythema, resolved. There is a small plantar lesion that is healing nicely. On the blood work white count 7.79, hemoglobin 8.8, hematocrit 28.1, glucose was 99. Coronavirus test negative. Blood cultures negative. ASSESSMENT: 1. Right foot Charcot-Radha with possible chronic osteomyelitis. 2. Diabetes type 2 with neuropathy. 3. Peripheral neuropathy. 4. Hypertension. 5. Hyperlipidemia. 6. Diabetes type 2 with hyperglycemia. 7. Anemia of chronic disease. 8. Diabetes with chronic kidney disease. 9. Chronic kidney disease, stage 3. PLAN: At present time, we are awaiting for bone scan results. Depending on the results, patient may go home with IV antibiotics for 6 weeks for osteomyelitis. If not, he probably will be able to go home on p.o. antibiotics and continue all home medications. All this was discussed in extension with the patient. All questions were answered to satisfaction. At present time, we are pending discharge depending on bone scan result. MD SERVANDO Bass/ZAK /[id number]
--- NOTE | 2019-12-20 09:58 | Progress Note ---
DATE: SUBJECTIVE: Mr. Marroquin is doing well. There are no complaints. REVIEW OF SYSTEMS: HEENT: Negative. PULMONARY: Negative. CARDIAC: Negative. : Negative. EXTREMITIES: His leg is doing much better. PHYSICAL EXAMINATION: GENERAL: He is currently alert, oriented, does not seem acute distress. VITAL SIGNS: Stable, currently afebrile. HEENT: He is not icteric. NECK: Supple. CHEST: Clear. ABDOMEN: Soft. IMPRESSION: 1. Cellulitis. The bone scan came back negative, can discharge home with doxycycline 100 mg p.o. b.i.d. for 10 days. Follow up as an outpatient. Continue local care. 2. Obesity. 3. Anemia. 4. Diabetes mellitus. 5. Chronic kidney disease. 6. Neuropathy. 7. Bilateral lower extremities edema. Consider still having elastic stocking. MD JOHN Capone/ZAK /[id number]
== END 2019-12-18 15:55 | disposition home or self-care (01) | DRG 74 ==
LOC: ER 10:11 → ERHOLD 11:12 → MED/SURG2 13:36
PROVIDERS: ADMIT Internal Medicine; ATTEND Internal Medicine
DX: G60.0 Hereditary motor and sensory neuropathy (principal); L03.115 Cellulitis of right lower limb; M86.671 Other chronic osteomyelitis, right ankle and foot; E11.69 Type 2 diabetes mellitus with other specified complication; E11.65 Type 2 diabetes mellitus with hyperglycemia; E11.21 Type 2 diabetes mellitus with diabetic nephropathy; E11.42 Type 2 diabetes mellitus with diabetic polyneuropathy; Z79.4 Long term (current) use of insulin; E11.22 Type 2 diabetes mellitus with diabetic chronic kidney disease; N18.3 Chronic kidney disease, stage 3 (moderate); D63.8 Anemia in other chronic diseases classified elsewhere; E78.5 Hyperlipidemia, unspecified; E66.9 Obesity, unspecified; Z68.32 Body mass index [BMI] 32.0-32.9, adult; D63.1 Anemia in chronic kidney disease; I13.10 Hypertensive heart and chronic kidney disease without heart failure, with stage 1 through stage 4 chronic kidney disease, or unspecified chronic kidney disease
CPT/HCPCS: 36415; 78300; 80053; 80202; 82948; 85025; 87040; 87635; 96372; 99284; A9570; J0696; J1815; J1817; J2270; J3370; J7040; J7050

== ENCOUNTER → 2021-03-21 | Day surgery (SDC) | payer MEDICARE ==
[2021-03-19 10:27] LABS: BASOPHILS # (AUTO) 0.1 (0.0-0.1); BASOPHILS % 0.7 % (0.0-1.0); EOSINOPHILS # (AUTO) 0.4 (0.0-0.4); EOSINOPHILS % 3.2 % (0.0-6.0); HEMATOCRIT 30.6 % (38.2-49.6); HEMOGLOBIN 10.2 g/dL (14.0-18.0); LYMPHOCYTES # (AUTO) 1.7 (1.0-3.2); LYMPHOCYTES % 13.8 % (18.0-39.1); MEAN CORPUSCULAR HEMOGLOBIN 30.4 pg (28-32); MEAN CORPUSCULAR HGB CONC 33.3 g/dL (31-35); MEAN CORPUSCULAR VOLUME 91.1 fL (81-99); MONOCYTES # (AUTO) 1.2 (0.2-0.8); MONOCYTES % 9.2 % (4.4-11.3); NEUTROPHILS % 72.5 % (38.7-80.0); PLATELET COUNT 271 x10e3/uL (140-360); RED BLOOD COUNT 3.36 x10e6/uL (4.3-5.7); RED CELL DISTRIBUTION WIDTH 13.7 % (11.7-14.4)
[2021-03-19 13:47] LABS: ANION GAP 19.9 mmol/L (8-16); CALCIUM 8.9 mg/dL (8.4-10.2); CREATININE, SERUM 2.83 mg/dL (0.72-1.25); POTASSIUM 4.9 mmol/L (3.5-5.1)
[~2021-03-21] MED LIST: AMLODIPINE BESY10 MG PO; ASPIRIN81 MG PO; ATORVASTATIN CA40 MG PO; BUPIVACAINE HCL 0.5% 10ML MPF VIAL INJ ONE; DEXAMETHASONE SOD PHOS INJ 4 MG/ML VIAL ONE; DICLOFENAC SOD100 G1; DULOXETINE HCL30 MG PO; EPHEDRINE SULFATE INJ 50 MG/ML VIAL ONE; FENOFIBRATE150 MG PO; FENTANYL CITRATE/PF 100MCG/2 ML INJ ONE; FUROSEMIDE40 MG PO; HUMALOG KW200 UNIT/1; HUMALOG100 UNIT/3 SQ; IRON PO; JARDIANCE10 MG PO; JARDIANCE25 MG; LIDOCAINE HCL 2% LOCAL INJ 5 ML SDV VIAL INJ ONE; LISINOPRIL-HCT1 EAC2 PO; LISINOPRIL40 MG; METOPROLOL SUC100 MG PO; MIDAZOLAM HCL 2 MG/2 ML VIAL ONE; MULTI-VITAMIN1 EACH PO; ONDANSETRON HCL INJ 2MG/ML 2ML 2 MG/ML VIAL ONE; PAIN RELIEF500 M1 PO; POVIDONE IODINE 0.05% 0.05 % ML PO ONE; PROPOFOL IV EMULSION 10 MG/ML 20 ML VIAL ONE; SEVOFLURANE INHAL SOLN 250 ML PEN BTL ONE; SODIUM CHLORIDE 0.9% 50ML 50 ML ONE; TOUJEO SOL300 UNIT/1 SQ; VITAMIN B COMP1 EACH PO; VITAMIN D3250 MCG PO
[2021-03-21 08:10] VITALS: BP 122/60
== END | disposition home or self-care (01) ==
LOC: OR 05:05
PROVIDERS: ATTEND Podiatrist Foot & Ankle Surgery
DX: L89.624 Pressure ulcer of left heel, stage 4 (principal); M77.52 Other enthesopathy of left foot and ankle; E11.9 Type 2 diabetes mellitus without complications; I10 Essential (primary) hypertension; E78.5 Hyperlipidemia, unspecified; Z01.810 Encounter for preprocedural cardiovascular examination; Z01.812 Encounter for preprocedural laboratory examination; Z01.818 Encounter for other preprocedural examination; Z20.822 Contact with and (suspected) exposure to COVID-19; Z79.82 Long term (current) use of aspirin; Z79.4 Long term (current) use of insulin
CPT/HCPCS: 28005; 28288; 36415 ×2; 71046; 80048; 82948; 85025; 93005; J0690; J2001; J2250; J2405; J2704; J3010; U0002; J1100

== ENCOUNTER 2021-04-07 08:52 | Inpatient (IN) | payer MEDICARE ==
[~2021-04-07] VITALS: Ht 188 cm; Wt 114.8 kg
[~2021-04-07 08:52] MED LIST changes: -BUPIVACAINE HCL 0.5% 10ML MPF VIAL INJ ONE; -DEXAMETHASONE SOD PHOS INJ 4 MG/ML VIAL ONE; -EPHEDRINE SULFATE INJ 50 MG/ML VIAL ONE; -FENTANYL CITRATE/PF 100MCG/2 ML INJ ONE; -LIDOCAINE HCL 2% LOCAL INJ 5 ML SDV VIAL INJ ONE; -MIDAZOLAM HCL 2 MG/2 ML VIAL ONE; -ONDANSETRON HCL INJ 2MG/ML 2ML 2 MG/ML VIAL ONE; -POVIDONE IODINE 0.05% 0.05 % ML PO ONE; -PROPOFOL IV EMULSION 10 MG/ML 20 ML VIAL ONE; -SEVOFLURANE INHAL SOLN 250 ML PEN BTL ONE; -SODIUM CHLORIDE 0.9% 50ML 50 ML ONE
[2021-04-07 10:01] LABS: BASOPHILS # (AUTO) 0.1 (0.0-0.1); BASOPHILS % 0.7 % (0.0-1.0); EOSINOPHILS # (AUTO) 0.5 (0.0-0.4); EOSINOPHILS % 3.9 % (0.0-6.0); HEMATOCRIT 33.1 % (38.2-49.6); HEMOGLOBIN 10.9 g/dL (14.0-18.0); LYMPHOCYTES # (AUTO) 1.5 (1.0-3.2); LYMPHOCYTES % 11.1 % (18.0-39.1); MEAN CORPUSCULAR HEMOGLOBIN 30.6 pg (28-32); MEAN CORPUSCULAR HGB CONC 32.9 g/dL (31-35); MONOCYTES # (AUTO) 1.1 (0.2-0.8); NEUTROPHILS # (AUTO) 10.2 (2.1-6.9); NEUTROPHILS % 75.4 % (38.7-80.0); PLATELET COUNT 300 x10e3/uL (140-360); RED BLOOD COUNT 3.56 x10e6/uL (4.3-5.7); RED CELL DISTRIBUTION WIDTH 12.8 % (11.7-14.4)
[2021-04-07 10:20] LABS: INR 1.07; PROTHROMBIN TIME 14.1 seconds (11.9-14.5)
[2021-04-07 10:23] LABS: ALBUMIN 4.1 g/dL (3.5-5.0); ALBUMIN/GLOBULIN RATIO 0.9 (0.8-2.0); ANION GAP 16.1 mmol/L (8-16); CALCIUM 11.2 mg/dL (8.4-10.2); CREATININE, SERUM 3.12 mg/dL (0.72-1.25); MAGNESIUM 1.7 MG/DL (1.3-2.1); POTASSIUM 5.1 mmol/L (3.5-5.1)
[2021-04-07 10:25] LABS: B-TYPE NATRIURETIC PEPTIDE2 48.2 pg/mL (0-100)
[2021-04-07 10:30] LABS: CREATINE KINASE MB 1.1 ng/mL (0-5.0)
[2021-04-07] MEDS ORDERED: PIPERACILLIN/TAZOBACTAM 2.25 GM in SODIUM CHLORIDE 0.9% 50ML 50 ML IV ONE (10:30)
[2021-04-07] MEDS ORDERED: Vancomycin IV 1 GM in SODIUM CHLORIDE 0.9% 250ML 250 ML IV ONE (10:30)
[2021-04-07] MEDS ORDERED: DEXTROSE 50% SYRINGE 50 ML IV PRN (12:30)
[2021-04-07] MEDS ORDERED: ACETAMINOPHEN 325 MG TAB PO PRN (12:30)
[2021-04-07] MEDS ORDERED: ACETAMINOPHEN 1000 MG PO SCH (17:00)
[2021-04-07 17:38] VITALS: BP 157/57
[2021-04-07] MEDS: INSULIN LISPRO 100 UNIT/1 ML 3ML VIAL SQ SCH ×2 (17:59→22:31)
[2021-04-07] MEDS ORDERED: PIPERACILLIN/TAZOBACTAM 2.25 GM in SODIUM CHLORIDE 0.9% 50ML 50 ML IV SCH ×2 (18:00→20:00)
[2021-04-07 18:01] LABS: CREATINE KINASE MB 0.8 ng/mL (0-5.0)
[2021-04-07 20:00] VITALS: BP 150/59
[2021-04-07 21:00] VITALS: BP 150/59
[2021-04-07] MEDS: Fenofibrate 160 MG PO SCH (21:00)
[2021-04-07] MEDS: ATORVASTATIN 40 MG TAB PO SCH (21:29)
[2021-04-07] MEDS: DULOXETINE HCL 30 MG DELAYED RELEASE PO SCH (21:29)
[2021-04-07] MEDS ORDERED: SODIUM CHLORIDE 0.9% 250ML 250 ML ONE (21:33)
[2021-04-07] MEDS: AMLODIPINE BESYLATE 10 MG TAB PO SCH (21:46)
[2021-04-08] VITALS (7 sets, daily range): BP systolic 119–151; BP diastolic 45–62
[2021-04-08] MEDS: PIPERACILLIN/TAZOBACTAM 2.25 GM in SODIUM CHLORIDE 0.9% 50ML 50 ML IV SCH ×4 (02:00→22:00)
[2021-04-08 06:47] LABS: BASOPHILS # (AUTO) 0.1 (0.0-0.1); BASOPHILS % 0.6 % (0.0-1.0); EOSINOPHILS # (AUTO) 0.5 (0.0-0.4); EOSINOPHILS % 4.3 % (0.0-6.0); HEMATOCRIT 29.3 % (38.2-49.6); HEMOGLOBIN 9.8 g/dL (14.0-18.0); LYMPHOCYTES # (AUTO) 0.8 (1.0-3.2); LYMPHOCYTES % 6.5 % (18.0-39.1); MEAN CORPUSCULAR HEMOGLOBIN 30.6 pg (28-32); MEAN CORPUSCULAR HGB CONC 33.4 g/dL (31-35); MEAN CORPUSCULAR VOLUME 91.6 fL (81-99); MONOCYTES # (AUTO) 1.1 (0.2-0.8); NEUTROPHILS # (AUTO) 9.4 (2.1-6.9); NEUTROPHILS % 78.8 % (38.7-80.0); PLATELET COUNT 244 x10e3/uL (140-360); RED CELL DISTRIBUTION WIDTH 12.9 % (11.7-14.4)
[2021-04-08 07:15] LABS: ALBUMIN 3.6 g/dL (3.5-5.0); ANION GAP 18.9 mmol/L (8-16); CALCIUM 9.5 mg/dL (8.4-10.2); CHOL/HDL RATIO 4.4 (3.9-4.7); CREATININE, SERUM 2.82 mg/dL (0.72-1.25); POTASSIUM 4.9 mmol/L (3.5-5.1)
[2021-04-08 07:28] LABS: CREATINE KINASE MB 1.2 ng/mL (0-5.0)
[2021-04-08] MEDS: INSULIN LISPRO 100 UNIT/1 ML 3ML VIAL SQ SCH ×4 (08:43→21:00)
[2021-04-08] MEDS: FAMOTIDINE 20 MG TAB PO SCH (08:45)
[2021-04-08] MEDS: Vancomycin IV 1 GM in SODIUM CHLORIDE 0.9% 250ML 250 ML IV SCH (11:17)
[2021-04-08] MEDS: ATORVASTATIN 40 MG TAB PO SCH (21:00)
[2021-04-08] MEDS: AMLODIPINE BESYLATE 10 MG TAB PO SCH (21:00)
[2021-04-08] MEDS: Fenofibrate 160 MG PO SCH (21:00)
[2021-04-08] MEDS: DULOXETINE HCL 30 MG DELAYED RELEASE PO SCH (21:00)
[2021-04-09] VITALS (8 sets, daily range): BP systolic 122–162; BP diastolic 53–65
[2021-04-09 05:08] LABS: BASOPHILS # (AUTO) 0.1 (0.0-0.1); BASOPHILS % 0.6 % (0.0-1.0); EOSINOPHILS # (AUTO) 0.6 (0.0-0.4); EOSINOPHILS % 5.8 % (0.0-6.0); HEMATOCRIT 28.7 % (38.2-49.6); HEMOGLOBIN 9.7 g/dL (14.0-18.0); LYMPHOCYTES # (AUTO) 0.9 (1.0-3.2); LYMPHOCYTES % 8.7 % (18.0-39.1); MEAN CORPUSCULAR HEMOGLOBIN 30.6 pg (28-32); MEAN CORPUSCULAR HGB CONC 33.8 g/dL (31-35); MEAN CORPUSCULAR VOLUME 90.5 fL (81-99); MONOCYTES # (AUTO) 1.1 (0.2-0.8); MONOCYTES % 10.4 % (4.4-11.3); NEUTROPHILS # (AUTO) 7.7 (2.1-6.9); NEUTROPHILS % 73.9 % (38.7-80.0); PLATELET COUNT 237 x10e3/uL (140-360); RED BLOOD COUNT 3.17 x10e6/uL (4.3-5.7); RED CELL DISTRIBUTION WIDTH 12.9 % (11.7-14.4)
[2021-04-09 05:42] LABS: ANION GAP 16.2 mmol/L (8-16); CALCIUM 8.8 mg/dL (8.4-10.2); CREATININE, SERUM 2.51 mg/dL (0.72-1.25); POTASSIUM 4.2 mmol/L (3.5-5.1)
[2021-04-09] MEDS: PIPERACILLIN/TAZOBACTAM 2.25 GM in SODIUM CHLORIDE 0.9% 50ML 50 ML IV SCH ×3 (05:43→22:02)
[2021-04-09] MEDS: INSULIN LISPRO 100 UNIT/1 ML 3ML VIAL SQ SCH ×4 (07:30→20:47)
[2021-04-09] MEDS: FAMOTIDINE 20 MG TAB PO SCH (08:14)
[2021-04-09] MEDS: Vancomycin IV 1 GM in SODIUM CHLORIDE 0.9% 250ML 250 ML IV SCH (08:14)
[2021-04-09] MEDS: ATORVASTATIN 40 MG TAB PO SCH (20:49)
[2021-04-09] MEDS: AMLODIPINE BESYLATE 10 MG TAB PO SCH (20:49)
[2021-04-09] MEDS: DULOXETINE HCL 30 MG DELAYED RELEASE PO SCH (20:49)
[2021-04-09] MEDS: Fenofibrate 160 MG PO SCH (20:55)
[2021-04-10] VITALS (8 sets, daily range): BP systolic 131–153; BP diastolic 52–71
[2021-04-10 05:13] LABS: BASOPHILS # (AUTO) 0.1 (0.0-0.1); BASOPHILS % 0.4 % (0.0-1.0); EOSINOPHILS # (AUTO) 0.7 (0.0-0.4); EOSINOPHILS % 5.6 % (0.0-6.0); HEMATOCRIT 29.7 % (38.2-49.6); HEMOGLOBIN 9.9 g/dL (14.0-18.0); LYMPHOCYTES # (AUTO) 1.1 (1.0-3.2); LYMPHOCYTES % 8.7 % (18.0-39.1); MEAN CORPUSCULAR HGB CONC 33.3 g/dL (31-35); MONOCYTES # (AUTO) 1.3 (0.2-0.8); MONOCYTES % 10.5 % (4.4-11.3); NEUTROPHILS % 74.4 % (38.7-80.0); PLATELET COUNT 240 x10e3/uL (140-360); RED CELL DISTRIBUTION WIDTH 12.9 % (11.7-14.4)
[2021-04-10 05:44] LABS: ALBUMIN 3.4 g/dL (3.5-5.0); ALBUMIN/GLOBULIN RATIO 0.9 (0.8-2.0); CALCIUM 8.5 mg/dL (8.4-10.2); CREATININE, SERUM 2.61 mg/dL (0.72-1.25)
[2021-04-10] MEDS: PIPERACILLIN/TAZOBACTAM 2.25 GM in SODIUM CHLORIDE 0.9% 50ML 50 ML IV SCH ×3 (06:21→22:22)
[2021-04-10] MEDS: INSULIN LISPRO 100 UNIT/1 ML 3ML VIAL SQ SCH ×4 (07:30→21:10)
[2021-04-10] MEDS: FAMOTIDINE 20 MG TAB PO SCH (09:34)
[2021-04-10] MEDS: Vancomycin IV 1 GM in SODIUM CHLORIDE 0.9% 250ML 250 ML IV SCH (10:25)
[2021-04-10] MEDS ORDERED: LIDOCAINE HCL 1% LOCAL INJ 20 ML VIAL ONE (12:21)
[2021-04-10] MEDS ORDERED: SODIUM CHLORIDE 0.9% 250ML 250 ML ONE (12:22)
[2021-04-10] MEDS: Fenofibrate 160 MG PO SCH (21:00)
[2021-04-10] MEDS: AMLODIPINE BESYLATE 10 MG TAB PO SCH (21:10)
[2021-04-10] MEDS: DULOXETINE HCL 30 MG DELAYED RELEASE PO SCH (21:10)
[2021-04-10] MEDS: ATORVASTATIN 40 MG TAB PO SCH (21:10)
[2021-04-11] VITALS (8 sets, daily range): BP systolic 124–157; BP diastolic 49–73
[2021-04-11] MEDS: PIPERACILLIN/TAZOBACTAM 2.25 GM in SODIUM CHLORIDE 0.9% 50ML 50 ML IV SCH ×3 (06:24→21:31)
[2021-04-11] MEDS: Vancomycin IV 1 GM in SODIUM CHLORIDE 0.9% 250ML 250 ML IV SCH (09:13)
[2021-04-11] MEDS: FAMOTIDINE 20 MG TAB PO SCH (09:13)
[2021-04-11] MEDS: INSULIN LISPRO 100 UNIT/1 ML 3ML VIAL SQ SCH ×4 (09:13→20:20)
[2021-04-11] MEDS: INSULIN GLARGINE 100 UNITS/ML VIAL SC SCH (20:18)
[2021-04-11] MEDS: DULOXETINE HCL 30 MG DELAYED RELEASE PO SCH (20:20)
[2021-04-11] MEDS: AMLODIPINE BESYLATE 10 MG TAB PO SCH (20:20)
[2021-04-11] MEDS: ATORVASTATIN 40 MG TAB PO SCH (20:20)
[2021-04-11] MEDS: Fenofibrate 160 MG PO SCH ×2 (20:20→20:21)
[2021-04-12] VITALS (7 sets, daily range): BP systolic 143–156; BP diastolic 61–74
[2021-04-12] MEDS: PIPERACILLIN/TAZOBACTAM 2.25 GM in SODIUM CHLORIDE 0.9% 50ML 50 ML IV SCH ×3 (06:07→22:43)
[2021-04-12 06:54] LABS: ANION GAP 14.1 mmol/L (8-16); CALCIUM 8.4 mg/dL (8.4-10.2); CREATININE, SERUM 2.21 mg/dL (0.72-1.25); POTASSIUM 4.1 mmol/L (3.5-5.1)
[2021-04-12 07:21] LABS: BASOPHILS # (AUTO) 0.1 (0.0-0.1); BASOPHILS % 0.4 % (0.0-1.0); EOSINOPHILS # (AUTO) 0.9 (0.0-0.4); HEMATOCRIT 28.6 % (38.2-49.6); HEMOGLOBIN 9.6 g/dL (14.0-18.0); LYMPHOCYTES # (AUTO) 1.2 (1.0-3.2); LYMPHOCYTES % 9.3 % (18.0-39.1); MEAN CORPUSCULAR HEMOGLOBIN 29.7 pg (28-32); MEAN CORPUSCULAR HGB CONC 33.6 g/dL (31-35); MEAN CORPUSCULAR VOLUME 88.5 fL (81-99); MONOCYTES # (AUTO) 1.2 (0.2-0.8); MONOCYTES % 9.2 % (4.4-11.3); NEUTROPHILS # (AUTO) 9.4 (2.1-6.9); NEUTROPHILS % 73.7 % (38.7-80.0); PLATELET COUNT 249 x10e3/uL (140-360); RED BLOOD COUNT 3.23 x10e6/uL (4.3-5.7); RED CELL DISTRIBUTION WIDTH 12.7 % (11.7-14.4)
[2021-04-12] MEDS: INSULIN LISPRO 100 UNIT/1 ML 3ML VIAL SQ SCH ×4 (07:30→21:00)
[2021-04-12] MEDS: Vancomycin IV 1 GM in SODIUM CHLORIDE 0.9% 250ML 250 ML IV SCH (08:24)
[2021-04-12] MEDS: FAMOTIDINE 20 MG TAB PO SCH (08:24)
[2021-04-12] MEDS: INSULIN GLARGINE 100 UNITS/ML VIAL SC SCH (21:00)
[2021-04-12] MEDS: DULOXETINE HCL 30 MG DELAYED RELEASE PO SCH (21:28)
[2021-04-12] MEDS: AMLODIPINE BESYLATE 10 MG TAB PO SCH (21:28)
[2021-04-12] MEDS: Fenofibrate 160 MG PO SCH (21:28)
[2021-04-12] MEDS: ATORVASTATIN 40 MG TAB PO SCH (21:28)
[2021-04-13 01:05] VITALS: BP 127/50
[2021-04-13 05:43] VITALS: BP 158/70
[2021-04-13] MEDS: PIPERACILLIN/TAZOBACTAM 2.25 GM in SODIUM CHLORIDE 0.9% 50ML 50 ML IV SCH ×3 (05:52→22:10)
[2021-04-13] MEDS: INSULIN LISPRO 100 UNIT/1 ML 3ML VIAL SQ SCH ×4 (07:30→22:12)
[2021-04-13] MEDS: FAMOTIDINE 20 MG TAB PO SCH (09:51)
[2021-04-13] MEDS: Vancomycin IV 1 GM in SODIUM CHLORIDE 0.9% 250ML 250 ML IV SCH (09:51)
[2021-04-13 12:38] VITALS: BP 158/70
[2021-04-13 20:00] VITALS: BP 135/66
[2021-04-13] MEDS: Fenofibrate 160 MG PO SCH (21:00)
[2021-04-13] MEDS: AMLODIPINE BESYLATE 10 MG TAB PO SCH (21:00)
[2021-04-13] MEDS: DULOXETINE HCL 30 MG DELAYED RELEASE PO SCH (22:08)
[2021-04-13] MEDS: ATORVASTATIN 40 MG TAB PO SCH (22:09)
[2021-04-13] MEDS: INSULIN GLARGINE 100 UNITS/ML VIAL SC SCH (22:11)
[2021-04-14] VITALS (7 sets, daily range): BP systolic 124–149; BP diastolic 39–69
[2021-04-14 06:40] LABS: BASOPHILS % 0.2 % (0.0-1.0); EOSINOPHILS % 7.8 % (0.0-6.0); HEMATOCRIT 29.6 % (38.2-49.6); HEMOGLOBIN 10.1 g/dL (14.0-18.0); LYMPHOCYTES # (AUTO) 1.4 (1.0-3.2); LYMPHOCYTES % 11.3 % (18.0-39.1); MEAN CORPUSCULAR HEMOGLOBIN 30.1 pg (28-32); MEAN CORPUSCULAR HGB CONC 34.1 g/dL (31-35); MEAN CORPUSCULAR VOLUME 88.1 fL (81-99); MONOCYTES # (AUTO) 1.1 (0.2-0.8); MONOCYTES % 8.6 % (4.4-11.3); NEUTROPHILS # (AUTO) 9.1 (2.1-6.9); NEUTROPHILS % 71.6 % (38.7-80.0); PLATELET COUNT 239 x10e3/uL (140-360); RED BLOOD COUNT 3.36 x10e6/uL (4.3-5.7); RED CELL DISTRIBUTION WIDTH 12.8 % (11.7-14.4)
[2021-04-14 07:11] LABS: ANION GAP 14.9 mmol/L (8-16); CALCIUM 8.4 mg/dL (8.4-10.2); CREATININE, SERUM 2.39 mg/dL (0.72-1.25); POTASSIUM 3.9 mmol/L (3.5-5.1)
[2021-04-14] MEDS: INSULIN LISPRO 100 UNIT/1 ML 3ML VIAL SQ SCH ×4 (07:30→21:00)
[2021-04-14] MEDS: PIPERACILLIN/TAZOBACTAM 2.25 GM in SODIUM CHLORIDE 0.9% 50ML 50 ML IV SCH ×3 (07:54→22:00)
[2021-04-14] MEDS: Vancomycin IV 1 GM in SODIUM CHLORIDE 0.9% 250ML 250 ML IV SCH (07:56)
[2021-04-14] MEDS: FAMOTIDINE 20 MG TAB PO SCH (07:56)
[2021-04-14] MEDS: AMLODIPINE BESYLATE 10 MG TAB PO SCH (21:00)
[2021-04-14] MEDS: INSULIN GLARGINE 100 UNITS/ML VIAL SC SCH (21:00)
[2021-04-14] MEDS: ATORVASTATIN 40 MG TAB PO SCH (21:00)
[2021-04-14] MEDS: DULOXETINE HCL 30 MG DELAYED RELEASE PO SCH (21:00)
[2021-04-14] MEDS: Fenofibrate 160 MG PO SCH (21:00)
[2021-04-14] MEDS ORDERED: SODIUM CHLORIDE 0.9% 250ML 250 ML ONE (21:45)
[2021-04-15] VITALS (9 sets, daily range): BP systolic 142–154; BP diastolic 52–71
[2021-04-15] MEDS: HYDROXYZINE HCL 25 MG TAB PO PRN ×4 (02:05→22:55)
[2021-04-15] MEDS: PIPERACILLIN/TAZOBACTAM 2.25 GM in SODIUM CHLORIDE 0.9% 50ML 50 ML IV SCH ×3 (05:30→22:32)
[2021-04-15 06:33] LABS: BASOPHILS % 0.3 % (0.0-1.0); EOSINOPHILS % 8.5 % (0.0-6.0); HEMATOCRIT 27.5 % (38.2-49.6); HEMOGLOBIN 9.5 g/dL (14.0-18.0); LYMPHOCYTES # (AUTO) 1.6 (1.0-3.2); LYMPHOCYTES % 13.8 % (18.0-39.1); MEAN CORPUSCULAR HEMOGLOBIN 30.4 pg (28-32); MEAN CORPUSCULAR HGB CONC 34.5 g/dL (31-35); MEAN CORPUSCULAR VOLUME 88.1 fL (81-99); MONOCYTES # (AUTO) 1.1 (0.2-0.8); MONOCYTES % 9.5 % (4.4-11.3); NEUTROPHILS % 67.3 % (38.7-80.0); PLATELET COUNT 246 x10e3/uL (140-360); RED BLOOD COUNT 3.12 x10e6/uL (4.3-5.7); RED CELL DISTRIBUTION WIDTH 12.7 % (11.7-14.4)
[2021-04-15 06:39] LABS: ANION GAP 15.9 mmol/L (8-16); CALCIUM 8.3 mg/dL (8.4-10.2); CREATININE, SERUM 2.25 mg/dL (0.72-1.25); POTASSIUM 3.9 mmol/L (3.5-5.1)
[2021-04-15] MEDS: INSULIN LISPRO 100 UNIT/1 ML 3ML VIAL SQ SCH ×4 (07:30→22:34)
[2021-04-15] MEDS: Vancomycin IV 1 GM in SODIUM CHLORIDE 0.9% 250ML 250 ML IV SCH (10:01)
[2021-04-15] MEDS: FAMOTIDINE 20 MG TAB PO SCH (10:01)
[2021-04-15] MEDS: Fenofibrate 160 MG PO SCH (21:00)
[2021-04-15] MEDS: DULOXETINE HCL 30 MG DELAYED RELEASE PO SCH (22:32)
[2021-04-15] MEDS: ATORVASTATIN 40 MG TAB PO SCH (22:32)
[2021-04-15] MEDS: AMLODIPINE BESYLATE 10 MG TAB PO SCH (22:32)
[2021-04-15] MEDS: INSULIN GLARGINE 100 UNITS/ML VIAL SC SCH (22:34)
[2021-04-16] VITALS (7 sets, daily range): BP systolic 126–150; BP diastolic 52–69
[2021-04-16] MEDS: HYDROXYZINE HCL 25 MG TAB PO PRN ×2 (04:41→10:59)
[2021-04-16] MEDS: PIPERACILLIN/TAZOBACTAM 2.25 GM in SODIUM CHLORIDE 0.9% 50ML 50 ML IV SCH ×3 (05:41→21:35)
[2021-04-16] MEDS: INSULIN LISPRO 100 UNIT/1 ML 3ML VIAL SQ SCH ×4 (07:30→21:00)
[2021-04-16] MEDS: Vancomycin IV 1 GM in SODIUM CHLORIDE 0.9% 250ML 250 ML IV SCH (09:32)
[2021-04-16] MEDS: FAMOTIDINE 20 MG TAB PO SCH (09:32)
[2021-04-16] MEDS: Fenofibrate 160 MG PO SCH (21:00)
[2021-04-16] MEDS: AMLODIPINE BESYLATE 10 MG TAB PO SCH (21:24)
[2021-04-16] MEDS: DULOXETINE HCL 30 MG DELAYED RELEASE PO SCH (21:24)
[2021-04-16] MEDS: ATORVASTATIN 40 MG TAB PO SCH (21:24)
[2021-04-16] MEDS: INSULIN GLARGINE 100 UNITS/ML VIAL SC SCH (21:42)
[2021-04-17] VITALS (8 sets, daily range): BP systolic 123–155; BP diastolic 46–65
[2021-04-17] MEDS: HYDROXYZINE HCL 25 MG TAB PO PRN (04:30)
[2021-04-17] MEDS: PIPERACILLIN/TAZOBACTAM 2.25 GM in SODIUM CHLORIDE 0.9% 50ML 50 ML IV SCH ×3 (06:11→22:00)
[2021-04-17 07:03] LABS: CALCIUM 8.6 mg/dL (8.4-10.2); CREATININE, SERUM 2.17 mg/dL (0.72-1.25)
[2021-04-17] MEDS: INSULIN LISPRO 100 UNIT/1 ML 3ML VIAL SQ SCH ×4 (07:30→21:00)
[2021-04-17] MEDS: Vancomycin IV 1 GM in SODIUM CHLORIDE 0.9% 250ML 250 ML IV SCH (09:01)
[2021-04-17] MEDS: FAMOTIDINE 20 MG TAB PO SCH (09:01)
[2021-04-17] MEDS: Fenofibrate 160 MG PO SCH (21:00)
[2021-04-17] MEDS: DULOXETINE HCL 30 MG DELAYED RELEASE PO SCH (21:00)
[2021-04-17] MEDS: AMLODIPINE BESYLATE 10 MG TAB PO SCH (21:00)
[2021-04-17] MEDS: INSULIN GLARGINE 100 UNITS/ML VIAL SC SCH (21:00)
[2021-04-17] MEDS: ATORVASTATIN 40 MG TAB PO SCH (23:12)
[2021-04-18] VITALS: BP 131/38
[2021-04-18 04:00] VITALS: BP 138/60
[2021-04-18 05:48] LABS: BASOPHILS # (AUTO) 0.1 (0.0-0.1); BASOPHILS % 0.5 % (0.0-1.0); EOSINOPHILS # (AUTO) 1.3 (0.0-0.4); EOSINOPHILS % 11.6 % (0.0-6.0); HEMATOCRIT 31.3 % (38.2-49.6); HEMOGLOBIN 10.5 g/dL (14.0-18.0); LYMPHOCYTES # (AUTO) 1.4 (1.0-3.2); LYMPHOCYTES % 13.1 % (18.0-39.1); MEAN CORPUSCULAR HEMOGLOBIN 29.9 pg (28-32); MEAN CORPUSCULAR HGB CONC 33.5 g/dL (31-35); MEAN CORPUSCULAR VOLUME 89.2 fL (81-99); MONOCYTES # (AUTO) 1.1 (0.2-0.8); MONOCYTES % 9.9 % (4.4-11.3); NEUTROPHILS % 64.1 % (38.7-80.0); PLATELET COUNT 240 x10e3/uL (140-360); RED BLOOD COUNT 3.51 x10e6/uL (4.3-5.7); RED CELL DISTRIBUTION WIDTH 12.9 % (11.7-14.4)
[2021-04-18] MEDS: PIPERACILLIN/TAZOBACTAM 2.25 GM in SODIUM CHLORIDE 0.9% 50ML 50 ML IV SCH (05:51)
[2021-04-18 06:31] LABS: ALBUMIN/GLOBULIN RATIO 0.7 (0.8-2.0); CALCIUM 8.5 mg/dL (8.4-10.2); CREATININE, SERUM 2.31 mg/dL (0.72-1.25); MAGNESIUM 1.7 MG/DL (1.3-2.1); PHOSPHORUS 4.2 MG/DL (2.3-4.7)
[2021-04-18] MEDS: INSULIN LISPRO 100 UNIT/1 ML 3ML VIAL SQ SCH ×3 (07:30→16:30)
[2021-04-18 08:47] VITALS: BP 144/73
[2021-04-18] MEDS ORDERED: SODIUM CHLORIDE 0.9% 250ML 250 ML ONE (09:22)
[2021-04-18] MEDS: FAMOTIDINE 20 MG TAB PO SCH (09:23)
[2021-04-18] MEDS: Vancomycin IV 1 GM in SODIUM CHLORIDE 0.9% 250ML 250 ML IV SCH (09:23)
[2021-04-18 10:10] VITALS: BP 144/73
[2021-04-18] MEDS: HYDROXYZINE HCL 25 MG TAB PO PRN (12:48)
[2021-04-18 13:14] VITALS: BP 152/74
[2021-04-18 16:43] VITALS: BP 152/62
[2021-04-19] MEDS ORDERED: CEFTRIAXONE 1 GM in SODIUM CHLORIDE 0.9% 50ML 50 ML IV SCH (08:00)
[2021-04-19] MEDS ORDERED: Vancomycin IV 1 GM in SODIUM CHLORIDE 0.9% 250ML 250 ML IV SCH (09:00)
== END 2021-04-18 21:16 | DRG 565 ==
LOC: ER 09:08 → ERHOLD 10:19 → MED/SURG3 17:08 → UNDODISIN 04-13 16:31 → MED/SURG3 04-13 16:46
PROVIDERS: ADMIT Internal Medicine; ATTEND Internal Medicine
PROC: 0JH63XZ Insertion of Tunneled Vascular Access Device into Chest Subcutaneous Tissue and Fascia, Percutaneous Approach (ICD-10-PCS; principal; 2021-04-10)
PROC: 02HV33Z Insertion of Infusion Device into Superior Vena Cava, Percutaneous Approach (ICD-10-PCS; 2021-04-10)
PROC: B548ZZA Ultrasonography of Superior Vena Cava, Guidance (ICD-10-PCS; 2021-04-10)
DX: T87.81 Dehiscence of amputation stump (principal); N17.9 Acute kidney failure, unspecified; L03.116 Cellulitis of left lower limb; N18.4 Chronic kidney disease, stage 4 (severe); L03.115 Cellulitis of right lower limb; M86.8X7 Other osteomyelitis, ankle and foot; E11.52 Type 2 diabetes mellitus with diabetic peripheral angiopathy with gangrene; I96 Gangrene, not elsewhere classified; T87.44 Infection of amputation stump, left lower extremity; E11.42 Type 2 diabetes mellitus with diabetic polyneuropathy; Z83.3 Family history of diabetes mellitus; Z82.49 Family history of ischemic heart disease and other diseases of the circulatory system; I12.9 Hypertensive chronic kidney disease with stage 1 through stage 4 chronic kidney disease, or unspecified chronic kidney disease; E11.22 Type 2 diabetes mellitus with diabetic chronic kidney disease; E78.5 Hyperlipidemia, unspecified; I25.10 Atherosclerotic heart disease of native coronary artery without angina pectoris; D63.1 Anemia in chronic kidney disease; Z79.4 Long term (current) use of insulin; L29.8 Other pruritus; Z20.822 Contact with and (suspected) exposure to COVID-19
CPT/HCPCS: 36415; 36558; 74470; 76937; 77001; 80048; 80053; 80061; 80202; 82550; 82553; 82948; 83605; 83735; 83880; 84100; 84484; 85025; 85610; 85730; 87040; 96372; 97139; 99284; C1751; J1815; J2001; J2543; J3370; J3410; J7050; U0002